=== PATIENT | female | born 1940 | race Caucasian/White ===

== ENCOUNTER → 2019-09-22 09:09 | Outpatient (BNVA) | payer MEDICARE, OTHER, SELFPAY | PROVIDERS: Family Provider Internal Medicine; PCP Internal Medicine; Visit Provider Nurse Practitioner | DX: I10 Essential (primary) hypertension (principal); E04.9 Nontoxic goiter, unspecified; M51.36 Other intervertebral disc degeneration, lumbar region | CPT/HCPCS: 80053; 80061; 81000; 84439; 84443; 84481; 85025 ==

== ENCOUNTER 2019-10-10 13:39 | Outpatient (CLI) | payer MEDICARE, OTHER, SELFPAY ==
--- NOTE | 2019-10-10 13:46 | US_ITS ---
WS: [id number] ULTRASOUND THYROID TECHNIQUE: Ultrasound of the thyroid. CLINICAL INFORMATION: enlarged thyroid COMPARISON: None. FINDINGS: Thyroid: Normal thyroid echotexture bilaterally. 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 No dominant nodules to target for biopsy. Right thyroid lobe: 3.8 cm x 1.3 cm x 1.4 cm Left thyroid lobe: 4.5 cm x 1.2 cm x 1.0 cm. Isthmus: 0.3 mm. Cervical lymphadenopathy: None. US/US thyroid [id number] IMPRESSION: Tiny bilateral hypoechoic nodules most of which appear to represent colloid cys ts. No dominant nodules to target for biopsy.
--- NOTE | 2019-10-10 15:15 | MR_ITS ---
WS: [id number] MRI LUMBAR SPINE NONCONTRAST TECHNIQUE: Sagittal T1, T2 and STIR imaging. Axial T1 and T2 imaging. CLINICAL INFORMATION: M51.36 Other intervertebral disc degeneration, lumbar region COMPARISON: None. FINDINGS: Mild lumbar curve. No acute compression. No high-grade central canal stenosis. L1-L2: Normal. L2-L3: Mild disc bulging in combination with moderate facet arthropathy results in moderate central c anal stenosis. Narrowing of the subarticular recess bilaterally. Small right foraminal protrusion wit h mild right foraminal narrowing. L3-L4: Mild disc bulging in combination with facet arthropathy and ligamentum flavum hypertrophy resu lts in moderate central canal stenosis. Impingement subarticular recess bilaterally. Mild right felicity inal narrowing. L4-L5: Mild disc bulging with slight effacement of the ventral thecal sac. Mild right and no signific ant left foraminal narrowing. Moderate facet arthropathy. Evidence of prior right hemilaminectomy. L5-S1: No significant disc bulging. Mild to moderate facet arthropathy. Spinal canal and foramen are patent. Visualized pelvic bony structures: Normal. Paravertebral soft tissues: Normal. MR/MR lumbar spine wo con* [id number] IMPRESSION: 1. Mild lumbar curve. No acute compression. No high-grade central canal stenos is. 2. Moderate central canal stenosis L2-L3 and L3-L4 due to disc bulging in comb ination with facet arthropathy and ligament flavum hypertrophy. Impingement sub articular recess bilaterally. 3. Prior right hemilaminectomy L4-5. Mild right L4-5 foraminal narrowing. 4. Moderate facet arthropathy throughout the lumbar spine.
== END 2019-10-10 13:40 | disposition home or self-care (01) ==
LOC: RADSHAW 13:42
PROVIDERS: PCP Nurse Practitioner; Visit Provider Nurse Practitioner
DX: M51.36 Other intervertebral disc degeneration, lumbar region (principal); E04.9 Nontoxic goiter, unspecified; M48.061 Spinal stenosis, lumbar region without neurogenic claudication; M47.816 Spondylosis without myelopathy or radiculopathy, lumbar region; E04.1 Nontoxic single thyroid nodule
CPT/HCPCS: 72148; 76536

== ENCOUNTER 2019-11-08 09:40 | Outpatient (RCR) | payer MEDICARE, OTHER, SELFPAY | END 2019-11-30 11:49 | disposition home or self-care (01) | LOC: SPT 09:40 | PROVIDERS: PCP Nurse Practitioner | DX: Z47.89 Encounter for other orthopedic aftercare (principal); M25.551 Pain in right hip; M54.5 Low back pain | CPT/HCPCS: 97110; 97162 ==

== ENCOUNTER 2019-11-15 13:39 | Outpatient (CLI) | payer MEDICARE, OTHER, SELFPAY ==
--- NOTE | 2019-11-15 14:02 | XR_ITS ---
WS: [id number] CERVICAL SPINE TECHNIQUE: 3 views of the cervical spine CLINICAL INFORMATION: burning pain anterior and posterior neck COMPARISON: None. FINDINGS: Straightening of the normal cervical lordosis. Normal prevertebral soft tissues. Normal C1-articulati on. Mild disc space narrowing C5-6. Moderate facet arthropathy mid cervical spine XR/XR cervical spine 3V* [id number] IMPRESSION: Mild spondylitic changes cervical spine.
== END 2019-11-15 13:40 | disposition home or self-care (01) ==
LOC: RADWPI 13:54
PROVIDERS: PCP Nurse Practitioner; Visit Provider Nurse Practitioner
DX: M54.2 Cervicalgia (principal); M47.812 Spondylosis without myelopathy or radiculopathy, cervical region
CPT/HCPCS: 72040

== ENCOUNTER → 2019-12-19 12:12 | Outpatient (BNVA) | payer MEDICARE, OTHER, SELFPAY | PROVIDERS: PCP Nurse Practitioner; Visit Provider Nurse Practitioner | DX: E04.9 Nontoxic goiter, unspecified (principal) | CPT/HCPCS: 84443 ==

== ENCOUNTER 2020-01-14 08:17 | Emergency (ER) | payer MEDICARE, OTHER, SELFPAY ==
[2020-01-14 08:26] VITALS: BP 190/110; PULSE 83; RESP 18; TEMP 36.7; O2SAT 94; BMI 28.1
--- NOTE | 2020-01-14 08:33 | ECG_ITS ---
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 Measurements Intervals [place] Rate: 78 P: 54 MT: 173 QRS: -9 QRSD: 105 T: 36 QT: 373 QTc: 426 Interpretive Statements SINUS RHYTHM WITH SINUS ARRHYTHMIA LOW QRS VOLTAGE IN PRECORDIAL LEADS [QRS DEFLECTION < 1.0 mV IN CHEST LEADS] INCOMPLETE RIGHT BUNDLE BRANCH BLOCK [90+ ms QRS DURATION, TERMINAL R IN V1/V2, 40+ ms S IN I/aVL/V4/V5/V6] POSSIBLE ANTERIOR MYOCARDIAL INFARCTION , PROBABLY OLD [30 ms Q WAVE IN V3/V4, OR R < 0.2 mV IN V4] No previous ECG available for comparison Electronically Signed On 01-14-2020 18:57:01 COMMERCIAL STRIPPER by Didi Peterson M.D. [id number]
[2020-01-14 08:38] VITALS: BP 190/110
[2020-01-14] MEDS: cloNIDine 0.1 mg Tablet PO (08:38)
[2020-01-14 09:09] VITALS: BP 146/83; PULSE 74; RESP 18; O2SAT 91
--- NOTE | 2020-01-14 09:27 | ED_ITS ---
HPI - General Adult General: Chief complaint: General Medical Stated complaint: N/V, HIGH BP Time Seen by Provider: 01/14/20 08:19 Source: patient Mode of arrival: ambulatory Limitations: no limitations History of Present Illness: HPI narrative: Very pleasant 79 yo female patient presents to the ER concerned that her blood pessure was elevated this am. Pt states she takes her blood pressure medication in am and seems like in the evening lately her blood perssure has been high. pt denies headache, visual disturbances, denies chest pain or SOB. Associated symptoms: Deny chest pain, confusion, diaphoresis, dyspnea, headache(s), malaise, nausea, rash, palpitations, syncope or vomiting Review of Systems Const: Denies: fever(s), chills, body aches, change in appetite, change in weight, fatigue, malaise or diaphoresis Eyes: Denies: change in vision, blurry vision, blind spots, photophobia, eye discomfort, eye discharge, eye redness, floaters or seeing flashes ENMT: Denies: throat pain, uvular edema, enlarged tonsils, odynophagia, hoarseness, mouth pain, swelling of lips/tongue, oral sores, bleeding gums, dental pain, dry mouth, ear or mastoid pain, ear discharge, change in hearing, tinnitus, disequilibrium, nasal discharge, nasal congestion, post nasal drip or sinus pain Card: Denies: chest pain, palpitations, irregular heart rhythm, edema, swelling of feet/ankles, lightheadedness, syncope, pre-syncope, dyspnea on exertion, orthopnea, leg pain with exertion or acrocyanosis Resp: Denies: dyspnea, productive cough, non-productive cough, wheezing, stridor, pain on inspiration, change in phlegm color, hemoptysis or chest congestion GI: Denies: abdominal pain, nausea, vomiting, hematemesis, dysphagia, diarrhea, constipation, GI cramping, change in bowel habits or rectal pain : Denies: flank pain, difficulty voiding, dysuria, urinary frequency, urinary urgency, urinary hesitancy or hematuria Musc: Denies: neck pain, back pain, extremity pain, extremity swelling, joint pain, joint swelling, joint redness, joint warmth or deformity Skin/Breast: Denies: rash, pruritus, erythema, sores, new lesions, changes in skin color or dry skin Neuro: Denies: headache(s), numbness in extremities, weakness in extremities, sensory changes, lack of coordination, difficulty walking, frequent falls, dizziness, vertigo, confusion, behavioral changes, Slurred speech present, difficulty communicating thoughts or seizure-like activity Psych: Denies: anxiety, depression, suicidal ideation or homicidal ideation Endo: Denies: polyuria, polydipsia, tired all the time, cold intolerance, excessive sweating, flushing, hot flashes or heat intolerance Angel/Lymph: Denies: easy bruising, easy bleeding, petechiae, purpura, enlarged lymph nodes or tender lymph nodes All/Imm: Denies: urticaria, throat swelling, tongue swelling, facial swelling, acute wheezing or itchy eyes PFSH ED PFSH: Medical History Anxiety DDD (degenerative disc disease), lumbar Essential (primary) hypertension Surgical History History of back surgery 1988 lumbar History of hernia repair History of hysterectomy Family History Other Cancer Diabetes Hypertension Denies family history of Dementia Stroke Social History Smoking and tobacco status: former smoker Second hand smoke exposure: No Smoking risk assessment/counseling performed?: No Alcohol intake: never Desire information about alcohol rehabilitation?: No Counseling given: No Desire information about substance/drug rehabilitation?: No Counseling given: No Adopted: No Caregiver/support person: No Lives independently: Yes Household members: spouse Housing: House Marital status: Number of children: 1 service: No Current occupational status: retired History of recent travel: No Current gender identity: Female Physical Exam Const: COMMON NORMALS: no acute distress, patient oriented x3 and no li mitations HENMT: COMMON NORMALS: normocephalic, atraumatic and hearing grossly normal bilaterally HEAD & SCALP: normocephalic and atraumatic FACE & SINUS: normal facial exam THROAT: no uvular edema Eye: COMMON NORMALS: Equal, round and reactive pupils present, EOMs intact bilaterally and conjunctivae normal CONJUNCTIVA: Yes conjunctivae normal PUPIL: Yes Equal, round and reactive pupils present Neck/C-Spine: COMMON NORMALS: full ROM and no JVD Chest: COMMONS NORMALS: normal inspection of the chest and normal palpation of entire chest wall Resp: COMMON NORMALS: normal respiratory effort, No retractions, No use of accessory muscles and clear to auscultation bilaterally AUSCULTATION: clear to auscultation bilaterally Cardio: COMMON NORMALS: no JVD, regular rate and regular rhythm RATE: regular rate RHYTHM: regular rhythm Neuro: COMMON NORMALS: patient oriented x3, CN's II-XII intact bilaterally, moves all extremities, no focal motor deficits, no sensory deficits noted and gait normal Psych: COMMON NORMALS: mental status grossly normal, Normal thought process present, cooperative, normal affect, speech normal, activity/motor behavior normal, denies homicidal ideation and denies suicidal ideation SPEECH: Yes normal speech THOUGHT PROCESS: Normal thought process present Skin: COMMON NORMALS: no rashes or lesions noted, no wounds and turgor normal GENERAL SKIN EXAM: no rashes or lesions noted and turgor normal Course Vital Signs: Vital signs: Vital Signs Temperature 98.0 F 01/14/20 08:26 Pulse Rate 74 01/14/20 09:09 Respiratory Rate 18 01/14/20 09:09 Blood Pressure 146/83 01/14/20 09:09 Pulse Oximetry 91 01/14/20 09:09 MDM - General Adult MDM Narrative: Medical decision making narrative: Very pleasant 79 yo female patient presents to the ER concerned that her blood pessure was elevated this am. Pt states she takes her blood pressure medication in am and seems like in the evening lately her blood perssure has been high. pt denies headache, visual disturbances, denies chest pain or SOB. Pt is well appearing non toxic and in a cute distress. pt states she had clonidine at home but thought it was an anxiety med and was afraid to take. I did get EKG which shows no st levation or depression nothing acute noted. pt is asymptomatic and was given clonidine and had clinical improvement of blood pressure. I do not feel any further work up is necessary. I advised patient to keep bp log and report to PCP in 1 week as a medication adjustment might be needed. Discharge Plan Discharge Patient Disposition: Home Clinical Impression: Essential (primary) hypertension Condition: Stable Prescriptions: No Action alprazolam [Xanax] 0.25 mg tablet 0.25 mg PO TID PRNRF: 0 magnesium citrate Solution 150 ml PO DAILY Qty: 296 RF: 0 Xlear 2 spray intranasal TID Qty: 45 RF: 0 lisinopril 20 mg tablet 20 mg PO DAILY Qty: 90 RF: 0 tizanidine [Zanaflex] 4 mg tablet 4 mg PO .at bedtime Qty: 90 RF: 0 thyroid (pork) [Porter Thyroid] 15 mg tablet 15 mg PO DAILY Qty: 30 RF: 2 celecoxib [Celebrex] 100 mg capsule 100 mg PO DAILY Qty: 30 RF: 2 clonidine HCl 0.1 mg tablet 0.1 mg PO BID Qty: 60 RF: 0 citalopram [Celexa] 10 mg tablet 10 mg PO DAILY Qty: 30 RF: 0 Discharge Orders: Discharge Order (Routine); Ordered 01/14/20 Ordered By: Cony Luna Referrals: Ruiz Tesfaye, EDUCATIONAL PROGRAM DIRECTOR-C [Primary Care Provider] - Discharge Diet: Advance as tolerated Discharge Activity: Resume usual activity Activity Restrictions/Additional Instructions: Please return to ER with elevated blood pressure that does not normalize after taking your meds as prescribed Return with chest pain or shortness of breath of any other concerning symptoms Please log your blood pressures for the next week and report to your PCP as medication adjustment might be needed Coding Level of Care Code ED Chief Drafter for Juan Carlos Mckeon
[2020-01-14 09:34] VITALS: BP 135/83; PULSE 73; RESP 18; O2SAT 90
== END 2020-01-14 09:36 | disposition home or self-care (01) ==
PROVIDERS: Emergency Provider Registered Nurse; PCP Nurse Practitioner
DX: I10 Essential (primary) hypertension (principal); Z87.891 Personal history of nicotine dependence
CPT/HCPCS: 12345; 93005; 99281; 99283

== ENCOUNTER → 2020-02-29 12:12 | Outpatient (BNVA) | payer MEDICARE, OTHER, SELFPAY | PROVIDERS: PCP Nurse Practitioner; Visit Provider Nurse Practitioner Family | DX: J06.9 Acute upper respiratory infection, unspecified (principal); Z20.828 Contact with and (suspected) exposure to other viral communicable diseases | CPT/HCPCS: 87635 ==

== ENCOUNTER 2020-03-06 09:33 | Outpatient (CLI) | payer MEDICARE, OTHER, SELFPAY ==
[2020-03-06 09:49] VITALS: BP 142/75; PULSE 69; RESP 15; TEMP 36.4; O2SAT 97; BMI 28.8
--- NOTE | 2020-03-06 10:03 | A.OFFVIS_ITS ---
Patient Information Referred by: Reza Symptom onset date: 02/28/20 COVID 19 common symptoms: positive fatigue, body aches, headache(s) and diarrhea COVID 19 other sytmptoms: negative chest pressure, chest pain, pleuritic pain, requiring oxygen, requiring more oxygen, respiratory distress, cyanosis, lethargy, confusion, new neurological complaints or other concerning symptoms Severity: moderate Treatment prior to arrival: none [facility] COVID test results: Nasal/Oral Coronavirus 2019 PCR Detected H 02/29/20 12:12 02/29/20 Criteria/Plan Inclusion/Exclusion Criteria weight >/= 40kg, + direct test </= 10 days ago and symptom onset </= 10 days ago age >/= 65 not requiring hospitalization, not requiring oxygen (if not chronically on oxygen) and no increase oxygen requirement (if chronically on oxygen) Patient education patient/caregiver received/reviewed fact sheet, Emergency Use Authorization/unapproved drug status discussed with patient/caregiver, alternatives to this treatment discussed with patient/caregiver, risks and bene fits of medication reviewed with patient/caregiver, patient/caregiver given opportunity for questions, which were answered and patient/caregiver consents to receiving Monoclonal Antibody Treatment Plan for treatment Meets criteria for Monoclonal Antibody infusion Ordering Monoclonal Antibody infusion for today
[2020-03-06 10:05] VITALS: BMI 28.8
[2020-03-06 10:49] VITALS: BP 131/72; PULSE 68; RESP 16; TEMP 36.3; O2SAT 94
[2020-03-06 11:07] VITALS: BP 101/72; PULSE 67; RESP 16; TEMP 36.4; O2SAT 97
[2020-03-06 11:34] VITALS: BP 133/67; PULSE 63; O2SAT 95
[2020-03-06 12:27] VITALS: BP 138/79; PULSE 62; O2SAT 97
== END 2020-03-06 12:29 | disposition home or self-care (01) ==
PROVIDERS: PCP Nurse Practitioner; Visit Provider Nurse Practitioner Family
DX: U07.1 COVID-19 (principal)
CPT/HCPCS: 96365; J7050

== ENCOUNTER 2020-03-07 19:15 | Emergency (ER) | payer MEDICARE, OTHER, SELFPAY ==
[2020-03-07 20:04] VITALS: BP 152/76; PULSE 76; RESP 18; TEMP 36.6; O2SAT 98; BMI 28.8
--- NOTE | 2020-03-07 20:14 | ED_ITS ---
HPI - Nausea/Vomiting/Diarrhea General: Chief complaint: Nausea/Vomiting/Diarrhea Stated complaint: covid symptoms/covid positive, had BAM yesterday Time Seen by Provider: 03/07/20 20:03 History of Present Illness: HPI Narrative: Patient says she been nauseated for 3 to 4 hours requesting medication for that otherwise she says she feels fine not any respiratory distress or other problems did receive antibody infusion yesterday MD elicited complaint: nausea Onset (ago): hour(s) Associated nausea: Yes Associated abdominal pain: No Associated symtoms: Reports no associated symptoms and nausea; Denies anxiety, change in vision, chest pain or headache(s) Review of Systems Const: Denies: fever(s), chills or body aches Eyes: Denies: change in vision or blurry vision ENMT: Denies: throat pain or nasal congestion Card: Denies: chest pain or dyspnea on exertion Resp: Denies: dyspnea, productive cough or non-productive cough GI: Reports: nausea Musc: Denies: extremity pain Skin/Breast: Denies: rash Neuro: Denies: headache(s) Psych: Denies: anxiety or depression Angel/Lymph: Denies: easy bruising PFSH ED PFSH: Medical History Anxiety DDD (degenerative disc disease), lumbar Essential (primary) hypertension Surgical History History of back surgery 1988 lumbar History of hernia repair History of hysterectomy Family History Other Cancer Diabetes Hypertension Denies family history of Dementia Stroke Social History Smoking and tobacco status: former smoker Second hand smoke exposure: No Smoking risk assessment/counseling performed?: No Alcohol intake: never Desire information about alcohol rehabilitation?: No Counseling given: No Desire information about substance/drug rehabilitation?: No Counseling given: No Adopted: No Caregiver/support person: No Lives independently: Yes Household members: spouse Housing: House Marital status: Number of children: 1 service: No Current occupational status: retired History of recent travel: No Current gender identity: Female Physical Exam Const: COMMON NORMALS: no acute distress, average body habitus and patient oriented x3 HENMT: COMMON NORMALS: normocephalic HEAD & SCALP: normal to inspection and normocephalic FACE & SINUS: normal facial exam Eye: COMMON NORMALS: conjunctivae normal GENERAL EYE: appearance normal, both eyes and all related structures CONJUNCTIVA: Yes conjunctivae normal Neck/C-Spine: COMMON NORMALS: no JVD Chest: COMMONS NORMALS: normal inspection of the chest Resp: COMMON NORMALS: normal respiratory effort and clear to auscultation bilaterally AUSCULTATION: clear to auscultation bilaterally Cardio: COMMON NORMALS: no JVD, regular rate and regular rhythm RATE: regular rate RHYTHM: regular rhythm GI: COMMON NORMALS: Normal to inspection, nondistended, normoactive bowel sounds present Extremity: COMMON NORMALS: normal to inspection and full ROM Neuro: COMMON NORMALS: patient oriented x3 Course Vital Signs: Vital signs: Vital Signs Temperature 97.8 F 03/07/20 20:04 Pulse Rate 76 03/07/20 20:04 Respiratory Rate 18 03/07/20 20:04 Blood Pressure 152/76 03/07/20 20:04 Pulse Oximetry 98 03/07/20 20:04 Discharge Plan Discharge Patient Disposition: Home Clinical Impression: Nausea Condition: Stable Prescriptions: New Zofran 4 mg tablet 4 mg PO Q8H 4 Days Qty: 12 RF: 0 No Action alprazolam [Xanax] 0.25 mg tablet 0.25 mg PO TID PRNRF: 0 magnesium citrate Solution 150 ml PO DAILY Qty: 296 RF: 0 Xlear 2 spray intranasal TID Qty: 45 RF: 0 tizanidine [Zanaflex] 4 mg tablet 4 mg PO .at bedtime Qty: 90 RF: 0 levothyroxine 50 mcg tablet 50 mcg PO DAILY Qty: 90 RF: 0 meloxicam [Mobic] 7.5 mg tablet 7.5 mg PO DAILY Qty: 90 RF: 1 valsartan [Diovan] 160 mg tablet 160 mg PO DAILY Qty: 90 RF: 0 clonidine HCl 0.1 mg tablet 0.1 mg PO BID PRN (Reason: hypertensive emergency) Qty: 60 RF: 1 fluoxetine [Prozac] 20 mg capsule 20 mg PO DAILY Qty: 30 RF: 2 Discharge Orders: Discharge ED (Routine); Ordered 03/07/20 Ordered By: Fortino Funk Referrals: Ruiz Tesfaye, BOOK RETAILER-C [Primary Care Provider] - Discharge Diet: Advance as tolerated Discharge Activity: Resume usual activity Activity Restrictions/Additional Instructions: Follow-up your primary care provider as necessary. If nausea worsens or pain develops or any other symptoms that seem out of the ordinary please come back here or see your family medical provider Coding Level of Care Code ED Steam And Power Superintendent for Juan Carlos Mckeon
[2020-03-07] MEDS: ondansetron 4 MG Tablet PO (20:25)
[2020-03-07] MEDS: ondansetron 2 mg/ML SDV 2 mL 4 MG IM (20:33)
--- NOTE | 2020-03-07 21:17 | PC.NURSE ---
Oral challenge complete. Pt able to keep down sprite. Pt reports continued nausea. Provider notified and aware. Pt to be discharged.
[2020-03-07 21:18] VITALS: BP 154/78; PULSE 84; RESP 18; O2SAT 99
== END 2020-03-07 21:19 | disposition home or self-care (01) ==
PROVIDERS: Emergency Provider Nurse Practitioner Family; PCP Nurse Practitioner
DX: R11.0 Nausea (principal); I10 Essential (primary) hypertension; Z87.891 Personal history of nicotine dependence
CPT/HCPCS: 12345; 96372; 99281; 99283; J2405; Q0162

== ENCOUNTER → 2020-08-08 15:20 | Outpatient (BNVA) | payer MEDICARE, OTHER, SELFPAY | PROVIDERS: PCP Nurse Practitioner; Visit Provider Nurse Practitioner | DX: F41.9 Anxiety disorder, unspecified (principal); M51.36 Other intervertebral disc degeneration, lumbar region; I10 Essential (primary) hypertension | CPT/HCPCS: 80053; 80061; 84443; 85025 ==

== ENCOUNTER 2020-08-14 13:56 | Inpatient (IN) | payer MEDICARE, OTHER, SELFPAY ==
[2020-08-14] VITALS (10 sets, daily range): BP systolic 123–164; BP diastolic 71–99; PULSE 75–97; RESP 16–22; TEMP 36.4–36.9; O2SAT 90–94; BMI 30.4
--- NOTE | 2020-08-14 14:03 | XR_ITS ---
WS: [id number] Exam: XR hip LT 2-3V wo/w pel* [id number] Date/Time of Exam: 08/14/2020 2:17 PM Reason For Exam: fall. left hip pain There is a mid cervical fracture of the left femoral neck. There is some impaction. No dislocation. M oderate osteoarthritis of the joint compartment. Subcortical cyst formation in the femoral head. XR/XR hip LT 2-3V wo/w pel* [id number] IMPRESSION: 1. Impacted femoral neck fracture as noted above. 2. Moderate DJD.
--- NOTE | 2020-08-14 14:03 | XR_ITS ---
WS: [id number] Exam: XR chest 1V portable [id number] Date/Time of Exam: 08/14/2020 2:17 PM Reason For Exam: ground level fall Comparison 04/14/2010. The lungs are clear and fully inflated. Normal cardiomediastinal structures and bony elements. Hiatal hernia noted. XR/XR chest 1V portable [id number] IMPRESSION: 1. No acute cardiopulmonary finding. 2. Hiatal hernia.
--- NOTE | 2020-08-14 14:04 | ECG_ITS ---
[facility] Test Date: 2020-08-14 Pat Name: Kanika Lane Department: Room: Gender: Female Mail Processing Machine Operator: : 1940 Requested By: Carlos A Cowan Order Number: [id number] Najma MD: David Johnson M.D. Measurements Intervals [place] Rate: 68 P: 75 IA: 200 QRS: 16 QRSD: 92 T: 42 QT: 414 QTc: 440 Interpretive Statements SINUS RHYTHM Compared to ECG 01/14/2020 08:42:53 Sinus arrhythmia no longer present Incomplete right bundle-branch block no longer present Myocardial infarct finding no longer present Electronically Signed On 08-14-2020 17:30:31 CDT by David Johnson M.D. [id number]
--- NOTE | 2020-08-14 14:05 | ED_ITS ---
HPI - Extremity Problem General: Chief complaint: Extremity Injury, Lower Stated complaint: GROUND LEVEL FALL Time Seen by Provider: 08/14/20 13:57 History of Present Illness: HPI Narrative: The patient is a 79-year-old female who comes to the ER after a, fall. She says she slipped on a toy and her legs split. She complains of left hip pain worse with movement. She arrived to ER via ambulance. She offers no other complaints at this time. She says she has past medical history of hypertension but no other medical problems. MD Complaint: joint pain Pain Consistency: constant Location: left Quality: sharp Relieving factors: rest Exacerbating factors: range of motion and other (movement) Associated symptoms: Reports no associated symptoms; Deny chest pain or rash Review of Systems General: Reports: 10 or more systems reviewed and unremarkable except in HPI and below Const: Denies: fatigue Eyes: Denies: change in vision, blurry vision or eye redness ENMT: Denies: throat pain, swelling of lips/tongue, ear or mastoid pain or nasal congestion Card: Denies: chest pain, palpitations, irregular heart rhythm, edema, dyspnea on exertion or orthopnea Resp: Denies: dyspnea, productive cough or non-productive cough GI: Denies: abdominal pain, diarrhea or GI cramping : Denies: flank pain, difficulty voiding, urinary frequency or urinary urgency Musc: Reports: joint pain and other; Denies: neck pain, back pain, extremity pain, joint redness, limited range of motion or muscle weakness Skin/Breast: Denies: rash, pruritus, erythema, skin pain or skin tenderness Neuro: Denies: headache(s), numbness in extremities, weakness in extremities, sensory changes, difficulty walking, dizziness, confusion or Slurred speech present Psych: Denies: anxiety or depression Endo: Denies: polyuria All/Imm: Denies: urticaria, throat swelling or tongue swelling PFSH ED PFSH: Medical History Anxiety DDD (degenerative disc disease), lumbar Essential (primary) hypertension Surgical History History of back surgery 1988 lumbar History of hernia repair History of hysterectomy Family History Other Cancer Diabetes Hypertension Denies family history of Dementia Stroke Social History Smoking and tobacco status: former smoker Second hand smoke exposure: No Smoking risk assessment/counseling performed?: No Alcohol intake: never Desire information about alcohol rehabilitation?: No Counseling given: No Desire information about substance/drug rehabilitation?: No Counseling given: No Adopted: No Caregiver/support person: No Lives independently: Yes Household members: spouse Housing: House Marital status: Number of children: 1 service: No Current occupational status: retired History of recent travel: No Current gender identity: Female Physical Exam Const: COMMON NORMALS: no acute distress, average body habitus, patient oriented x3, no limitations, healthy appearing, alert and well nourished GENERAL APPEARANCE: cooperative, comfortable, well kempt and well developed ORIENTATION/CONSCIOUSNESS: Yes awake, Yes oriented to person, Yes oriented to place and Yes oriented to time HENMT: COMMON NORMALS: normocephalic, external ears normal and Normal external nose present HEAD & SCALP: normal to inspection and normocephalic NOSE: Normal external nose present EXTERNAL EAR: Yes external ears normal MOUTH: Normal oral and palatal mucosa present THROAT: posterior oropharynx normal Eye: COMMON NORMALS: Equal, round and reactive pupils present and EOMs intact bilaterally GENERAL EYE: appearance normal, both eyes and all related structures PUPIL: Yes Equal, round and reactive pupils present Neck/C-Spine: COMMON NORMALS: full ROM, no lymphadenopathy, no meningeal signs and no JVD GENERAL: Yes normal visual inspection Lymph: LYMPHATIC: no lymphadenopathy noted Chest: COMMONS NORMALS: normal inspection of the chest and normal palpation of entire chest wall Resp: COMMON NORMALS: normal respiratory effort, No retractions, No use of accessory muscles, clear to auscultation bilaterally and percussion normal EFFORT & INSPECTION: Yes able to speak in complete sentences AUSCULTATION: clear to auscultation bilaterally PERCUSSION: percussion normal Cardio: COMMON NORMALS: no JVD, regular rate, regular rhythm, S1 normal heart sound present, S2 normal heart sound present and Peripheral pulses 2+ throughout RATE: regular rate RHYTHM: regular rhythm HEART SOUNDS: S1 normal heart sound present and S2 normal heart sound present PERIPHERAL PULSES: Peripheral pulses 2+ throughout GI: COMMON NORMALS: Normal to inspection, nondistended, normoactive bowel sounds present, Soft to palpation, non-tender and no masses INSPECTION: Yes normal to inspection PALPATION: Yes Soft to palpation : COMMON NORMALS: Yes no CVA tenderness BLADDER/KIDNEY EXAM: Yes no CVA tenderness Back/Pelvis: COMMON NORMALS: no CVA tenderness, thoracic and lumbar spine normal to inspection, no thoracic nor lumbar tenderness and thoraco-lumbar ROM normal Extremity: COMMON NORMALS: normal to inspection, full ROM, capillary refill normal, no joint enlargement and no pedal edema NARRATIVE EXTREMITY EXAM: left hip tenderness worse with movement. Pain limits exam significantly. will wait for images. GENERAL: Yes normal exam except as noted Neuro: COMMON NORMALS: patient oriented x3, CN's II-XII intact bilaterally, moves all extremities, no focal motor deficits, no sensory deficits noted and gait normal SENSORIUM/ORIENTATION: Yes alert, Yes oriented to person, Yes oriented to place and Yes oriented to time MENINGEAL SIGNS: Yes no meningeal signs Psych: COMMON NORMALS: mental status grossly normal, Normal thought process present, cooperative, normal affect and speech normal APPEARANCE: Yes well kempt ATTITUDE: Yes calm SPEECH: Yes normal speech THOUGHT PROCESS: Normal thought process present Skin: COMMON NORMALS: no rashes or lesions noted GENERAL SKIN EXAM: no rashes or lesions noted Course Vital Signs: Vital signs: Vital Signs Temperature 98.4 F 08/14/20 13:58 Pulse Rate 80 08/14/20 15:28 Respiratory Rate 18 08/14/20 15:37 Blood Pressure 144/81 08/14/20 15:28 Pulse Oximetry 94 08/14/20 15:28 MDM - Extremity (Nontraumatic) MDM Narrative: Medical decision making narrative: The patient fell at home. She has a impacted left hip fracture at the femoral neck. Discussed with Dr. Mike who will likely pin her tomorrow. Discussed with Dr. Baum who ac cepts for inpatient admission. Lab Data: Labs: Lab Results 08/14/20 08/14/20 Range/Units 14:35 14:35 WBC 15.1 H (4.0-10.0) 10^3/ uL RBC 4.34 (4.1-5.3) 10^6/u L Hgb 12.8 (11.5-15.3) g/dL Hct 39.1 (37.0-47.0) % MCV 90.1 (81-99) fL MCH 29.5 (28.0-34.0) pg MCHC 32.7 (30.0-36.0) g/dL RDW 12.8 (12.1-15.1) % Plt Count 375 (130-400) 10^3/c mm MPV 10.9 H (7.4-10.4) fL Neut % (Auto) 82.5 % Lymph % (Auto) 8.7 % [place] % (Auto) 6.9 % Eos % (Auto) 0.7 % Baso % (Auto) 0.7 % Neut # (Auto) 12.43 H (1.8-7.7) 10^3/u L Lymph # (Auto) 1.3 (0.8-4.8) 10^3/u L Ed[place] # (Auto) 1.0 H (0.2-0.9) 10^3/u L Eos # (Auto) 0.1 (0.0-0.8) 10^3/u L Baso # (Auto) 0.1 (0.0-0.1) 10^3/u L Nucleated RBC % (a uto) 0 % Nucleated RBCs # 0.0 /100WBC Sodium 138 (136-145) mmol/L Potassium 4.0 (3.5-5.1) mmol/L Chloride 101 (98-107) mmol/L Carbon Dioxide 28 (22-29) mmol/L Anion Gap 13.0 (5-19) BUN 26 H (8-23) mg/dL Creatinine 1.1 H (0.5-0.9) mg/dL GFR Calculation Not Reportable Glucose 120 H (65-115) mg/dL Calculated Osmolal ity 292 (285-295) mOsm/k g Calcium 8.3 L (8.5-10.5) mg/dL Total Bilirubin 0.3 (0.15-1.2) mg/dL AST 20 (0-32) U/L ALT 15 (0-33) U/L Alkaline Phosphata se 95 (35-105) IU/L Total Protein 6.3 L (6.6-8.7) g/dL Albumin 3.9 (3.5-5.2) g/dL Globulin 2.4 (1.3-4.6) g/dL Discharge Plan Discharge Patient Disposition: Admitted As Inpatient Clinical Impression: Fracture of hip Condition: Stable Coding Level of Care Code ED Porcelain Enamel Sprayer for [facility] Fwd Exam Comprehensive
[2020-08-14 14:44] LABS: Basophils # 0.1 10^3/uL (0.0-0.1); Basophils % 0.7 %; Eosinophils # 0.1 10^3/uL (0.0-0.8); Eosinophils % 0.7 %; Hematocrit 39.1 % (37.0-47.0); Hemoglobin 12.8 g/dL (11.5-15.3); Lymphocytes # 1.3 10^3/uL (0.8-4.8); Lymphocytes % 8.7 %; Mean Corpuscular HGB Conc 32.7 g/dL (30.0-36.0); Mean Corpuscular Hemoglobin 29.5 pg (28.0-34.0); Mean Corpuscular Volume 90.1 fL (81-99); Mean Platelet Volume 10.9 fL (7.4-10.4); Monocytes % 6.9 %; Neutrophils # 12.43 10^3/uL (1.8-7.7); Neutrophils % 82.5 %; Nucleated Red Blood Cells % 0 %; Platelet Count 375 10^3/cmm (130-400); Red Blood Count 4.34 10^6/uL (4.1-5.3); Red Cell Distribution Width 12.8 % (12.1-15.1); White Blood Count 15.1 10^3/uL (4.0-10.0)
[2020-08-14 15:09] LABS: Alanine Aminotransferase 15 U/L (0-33); Albumin Level 3.9 g/dL (3.5-5.2); Alkaline Phosphatase 95 IU/L (35-105); Aspartate Amino Transferase 20 U/L (0-32); Blood Urea Nitrogen 26 mg/dL (8-23); Calcium 8.3 mg/dL (8.5-10.5); Carbon Dioxide 28 mmol/L (22-29); Chloride 101 mmol/L (98-107); Globulin 2.4 g/dL (1.3-4.6); Glucose 120 mg/dL (65-115); Osmolality Calculated 292 mOsm/kg (285-295); Sodium 138 mmol/L (136-145); Total Bilirubin 0.3 mg/dL (0.15-1.2); Total Protein 6.3 g/dL (6.6-8.7)
[2020-08-14] MEDS: morphine 4 mg/mL SDV 1 mL IVP (15:37)
[2020-08-14] MEDS: ondansetron 2 mg/ML SDV 2 mL 4 MG IVP (15:37)
[2020-08-14] MEDS: HYDROmorphone 1 mg/mL INJ 1 mL 0.5 MG IVP ×2 (16:49→19:33)
[2020-08-14 17:00] LABS: Add Urine Microscopic? NO; Charge for UA Resulting for Rev
[2020-08-14 17:11] LABS: Bilirubin Urine Neg (Negative); Blood Urine Neg (Negative); Glucose Urine UA Norm (Normal); Ketones Urine Negative (Negative); Leukocyte Esterase Urine Negative (Negative); Nitrate Urine Negative (Negative); Protein Urine Neg (Negative); Specific Gravity, Urine 1.005 (1.005-1.030); Urine Appearance Clear (CLEAR); Urine Color Yellow (Yellow); Urobilinogen Urine Norm (Negative); pH Urine 7 (5-7)
--- NOTE | 2020-08-14 18:41 | PC.NURSE ---
PT GOT TO FLOOR AND PAIN WAS ASSESSED AT THIS TIME
--- NOTE | 2020-08-14 19:29 | PM.HP ---
Providers/Chief Complaint Admitting Physician: Matt Baum DO Primary Care Provider: HASMUKH Hernandez Chief Complaint: GROUND LEVEL FALL History of Present Illness Kanika Lane is a 79 year old female presents after fall on a child's toy landing on her left hip. She was unable to walk and sought emergency care. She was found to have a left impacted hip fracture at the femoral neck. Patient was feeling well prior to this fall. She does note that she had Covid in March. She states that she has almost completely resolved symptoms except for a lingering fatigue. Review of Systems Const: Denies: fever(s) or chills Eyes: Denies: change in vision ENMT: Denies: throat pain or nasal congestion Card: Denies: chest pain or palpitations Resp: Denies: dyspnea or productive cough GI: Denies: abdominal pain, nausea, vomiting or change in stool character : Denies: dysuria Musc: Reports: joint pain and deformity Skin/Breast: Denies: rash or lesions Neuro: Denies: headache(s) or dizziness Psych: Denies: anxiety or depression Angel/Lymph: Denies: easy bruising or easy bleeding Medications/Allergies Home Medications Medication Instructions Recorded Confirmed Last Taken Type alprazolam 0.25 mg tablet 0.125 mg PO BEDTIME PRN 09/22/19 08/14/20 08/13/20 History Xlear 2 spray INTRANASAL TID #45 ml 12/19/19 08/14/20 Unknown Rx clonidine HCl 0.1 mg tablet 0.1 mg PO BID PRN #60 tab 02/06/20 08/14/20 Unknown Rx Diovan HCT 1 tab PO DAILY@1030 08/14/20 08/14/20 08/14/20 History Mobic 7.5 mg PO DAILY@1030 08/14/20 08/14/20 08/14/20 History Prozac 20 mg PO DAILY@1030 08/14/20 08/14/20 08/14/20 History levothyroxine 50 mcg PO DAILY@1030 08/14/20 08/14/20 08/14/20 History loratadine 10 mg PO DAILY PRN 08/14/20 08/14/20 08/14/20 History magnesium citrate 150 ml PO DAILY@1030 08/14/20 08/14/20 08/14/20 History Allergies Allergy/AdvReac Type Severity Reaction Status Date / Time codeine Allergy Unknown Unknown Verified 03/07/20 20:08 Penicillins Allergy Unknown Unknown Verified 03/07/20 20:08 PFSH Acute PFSH: Medical History Anxiety DDD (degenerative disc disease), lumbar Essential (primary) hypertension Surgical History History of back surgery 1988 lumbar History of hernia repair History of hysterectomy Family History Other Cancer Diabetes Hypertension Denies family history of Dementia Stroke Social History Smoking and tobacco status: former smoker Second hand smoke exposure: No Smoking risk assessment/counseling performed?: No Alcohol intake: never Desire information about alcohol rehabilitation?: No Counseling given: No Desire information about substance/drug rehabilitation?: No Counseling given: No Adopted: No Caregiver/support person: No Lives independently: Yes Household members: spouse Housing: House Marital status: Number of children: 1 service: No Current occupational status: retired History of recent travel: No Current gender identity: Female Vitals/I&O/Wt Last Vital Signs Temp 98.3 F 08/14/20 18:00 Pulse 85 08/14/20 18:13 Resp 18 08/14/20 18:13 BP 150/85 08/14/20 18:13 Pulse Ox 92 08/14/20 18:13 Weight last 48 hrs Weight 90.718 kg Physical Exam Narrative: EXAM NARRATIVE: General: Patient is in mild to moderate distress. She has shaking chill yet she is not cold. She appears to be very anxious. HEENT. Head is normocephalic atraumatic pupils are equal round reactive to light and accommodation extraocular muscles are intact there is no scleral icterus mucous membranes are moist and pink, dentition is intact Neck: Supple no JVD carotid bruits or lymphadenopathy no thyromegaly appreciated Lymphatic: No lymphadenopathy appreciated in the cervical axillary or supraclavicular areas chest: Chest:rises symmetrically inspection is normal Respiratory: no wheezes or rales or rhonchi anteriorly good aeration Heart: Normal S1-S2 without murmurs clicks gallops or rubs Abdomen: soft nontender nondistended positive bowel sounds no hepatosplenomegaly Extremities: No clubbing cyanosis or edema. I do note a left external rotation at the hip. Neuro: patient is alert and oriented to person place time and situation she is nonfocal except for mobility of the left leg. Psych, mood and affect are appropriate for condition Skin: No lesions or rashes noted. Urinary Catheter Management^: Ray: Cath Placed During This Visit: yes Reason for Continuing Indwelling Catheter: Required Immobilization for Trauma or Surgery or Anesthesia Urinary Catheter Date of Insertion: 08/14/20 Urinary Catheter Time of Insertion: 16:30 Data : 08/14/20 14:35 08/14/20 14:35 A&P Assessment and plan (1) Fracture of hip: Dr. Mike to place pin in left hip tomorrow in the OR. N.p.o. after midnight D5 half-normal saline with 20 of KCl. Dilaudid 0.5 mg IV push every 4 hours as needed Oxycodone 10mg p.o. every 6 hours as needed. I advised patient and nurse that she should take the 10 mg right at midnight after which she will be n.p.o. Valium as below. Status: Acute (2) Anxiety: Patient usually takes low-dose Xanax at night to help with sleep. I will prescribe Valium 10 mg p.o. to help with sleep pain and muscle spasm. Status: Chronic (3) Essential (primary) hypertension: Continue patient's home dose of Diovan HCT. Status: Chronic (4) Hypothyroid: Continue patient's home dose of levothyroxine Status: Acute Attestations Medical Necessity Statement*: HIp fx requiring surgery, therapy and then rehab. Anticipate 2 MN stay Coding Level of Care Code Acute Property Insurance Inspector for [facility] Fwd Diagnoses Fracture of hip S72.009A Anxiety F41.9 Essential (primary) hypertension I10 Hypothyroid E03.9
[2020-08-14] MEDS: D5-NS 0.45% + KCL 20 mEq 20 MEQ/1,000 ML BAG 75 MEQ IV (19:55)
[2020-08-14] MEDS: diazePAM 5 mg Tablet 10 MG PO (21:51)
[2020-08-15] VITALS (29 sets, daily range): BP systolic 95–146; BP diastolic 58–83; PULSE 67–90; RESP 14–25; TEMP 36.3–37.3; O2SAT 84–97
[2020-08-15] MEDS: oxyCODONE 5 mg IR Tab/Cap 10 MG PO ×2 (00:24→07:14)
[2020-08-15 06:51] LABS: Blood Urea Nitrogen 18 mg/dL (8-23); Calcium 8.5 mg/dL (8.5-10.5); Carbon Dioxide 29 mmol/L (22-29); Chloride 99 mmol/L (98-107); Glucose 114 mg/dL (65-115); Osmolality Calculated 283 mOsm/kg (285-295); Sodium 135 mmol/L (136-145)
--- NOTE | 2020-08-15 08:23 | PM.CONSULT ---
Providers/Reason For Consult Consulting Physician/Specialty*: Neri Mike MD; orthopedic surgery Reason for Consult*: Fracture left femoral neck Attending Physician: Matt Baum DO Primary Care Provider: HASMUKH Hernandez History of Present Illness History of Present Illness Kanika Lane is a 79 year old female who tripped at home on her grandchild's toy landing on her left hip with immediate pain. She states she has had a previous history of pain in the right but not so much the left hip. She was transferred here by EMS for radiographs revealed a left femoral neck fracture. She is admitted to medicine and orthopedics is consulted for management of the fracture. Meds/Allergies Home Medications and Allergies Home Medications Medication Instructions Recorded Confirmed Last Taken Type alprazolam 0.25 mg tablet 0.125 mg PO BEDTIME PRN 09/22/19 08/14/20 08/13/20 History Xlear 2 spray INTRANASAL TID #45 ml 12/19/19 08/14/20 Unknown Rx clonidine HCl 0.1 mg tablet 0.1 mg PO BID PRN #60 tab 02/06/20 08/14/20 Unknown Rx Diovan HCT 1 tab PO DAILY@1030 08/14/20 08/14/20 08/14/20 History Mobic 7.5 mg PO DAILY@1030 08/14/20 08/14/20 08/14/20 History Prozac 20 mg PO DAILY@1030 08/14/20 08/14/20 08/14/20 History levothyroxine 50 mcg PO DAILY@1030 08/14/20 08/14/20 08/14/20 History loratadine 10 mg PO DAILY PRN 08/14/20 08/14/20 08/14/20 History magnesium citrate 150 ml PO DAILY@1030 08/14/20 08/14/20 08/14/20 History Allergies Allergy/AdvReac Type Severity Reaction Status Date / Time codeine Allergy Unknown Unknown Verified 03/07/20 20:08 Penicillins Allergy Unknown Unknown Verified 03/07/20 20:08 Current Medications Current Medications Generic Name Dose Route Start Last Admin Trade Name Freq PRN Reason Stop Dose Admin Potassium Chloride/Dextrose/Sod Cl 20 meq in 1,000 mls @ 75 mls/hr 08/14/20 19:30 06/15/21 19:55 D5-Ns 0.45% + Kcl 20 Meq IV 75 mls/hr .[id number] TATI Administration Non-Formulary Medication 2 spray 08/14/20 21:00 08/14/20 21:52 Xlear INTRANASAL Not Given TID TATI Oxycodone HCl 10 mg 08/14/20 19:20 08/15/20 07:14 Oxycodone 5 Mg Ir Tab/Cap PO 10 mg Q6H PRN Administration MODERATE PAIN PFSH Acute PFSH: Medical History Anxiety DDD (degenerative disc disease), lumbar Essential (primary) hypertension Surgical History History of back surgery 1988 lumbar History of hernia repair History of hysterectomy Family History Other Cancer Diabetes Hypertension Denies family history of Dementia Stroke Social History Smoking and tobacco status: former smoker Second hand smoke exposure: No Smoking risk assessment/counseling performed?: No Alcohol intake: never Desire information about alcohol rehabilitation?: No Counseling given: No Desire information about substance/drug rehabilitation?: No Counseling given: No Adopted: No Caregiver/support person: No Lives independently: Yes Household members: spouse Housing: House Marital status: Number of children: 1 service: No Current occupational status: retired History of recent travel: No Current gender identity: Female Vitals/I&O/Wt Last Vital Signs Temp 98.0 F 08/15/20 08:05 Pulse 74 08/15/20 08:05 Resp 25 H 08/15/20 08:05 BP 128/77 08/15/20 08:05 Pulse Ox 90 08/15/20 08:05 08/14/20 08/15/20 08/15/20 22:59 06:59 14:59 Output Total 700 / 700 350 / 1050 Balance -700 / -700 -350 / -1050 Weight last 48 hrs Weight 200 lb Physical Exam Narrative: EXAM NARRATIVE: HEAD: Normocephalic/atraumatic. NECK: Soft supple nontender. HEART: Normal heart sounds, regular rhythm. CHEST: Clear to auscultation. ABDOMEN: Soft nontender nondistended. The patient is supine in bed with no visible deformity of the left hip. She has severe pain with motion of the left hip. She will flex extend her left toes and ankle. Palpable left dorsalis pedis pulse. Sensation intact light touch left foot Urinary Catheter Management^: Ray: Cath Placed During This Visit: yes Reason for Continuing Indwelling Catheter: Perioperative Use in Selected Surgeries Urinary Catheter Date of Insertion: 08/14/20 Urinary Catheter Time of Insertion: 16:30 Data Imaging^: Xray Ortho: My impression: Radiographs reviewed of the left pelvis and hip dated . The patient appears to have a valgus impacted fracture of the left femoral neck. There is some cystic change within the femoral head an lateral osteophytes consistent with some early degenerative change. A&P Assessment and plan (1) Fracture of femoral neck, left, closed: The patient has a valgus impacted fracture of the left femoral neck. There is cystic change and osteophytes consistent with some early osteoarthritis. I discussed treatment options with her. With the abnormal appearance of the joint and femoral head I think hemiarthroplasty would be the best option. At 79 years of age and she is older and her functional demands are lower not certain there will be great benefit toward additional total hip arthroplasty. I discussed options with the patient and family. I told them possible treatments for displaced femoral neck fracture would include nonoperative treatment, open reduction internal fixation, or hemiarthroplasty. I told them without treatment the patient would experience ongoing of pain that would limit mobility. This would require pain medications and place her at medical risks due to prolonged periods of bed rest. I discussed the possibility of open reduction internal fixation with pins. I warned them of the risk of nonunion and malunion is exceptionally high. In addition there is a high likelihood that the blood applied to the femoral head has been disrupted and that even with successful stabilization of the fracture the femoral head will go on to . I finally discussed the possibility of hemiarthroplasty. I think this would give the patient the greatest chance of being immediately mobilized. I discussed risk of a bleeding and a possible need for blood products. I discussed risk of deep venous thromboses and pulmonary emboli and the need for anticoagulation. I discussed the use of the TXA that may be utilized to diminish blood loss. I discussed risk of component failure and loosening that could require revision. I discussed the risk of dislocation and a bipolar arthroplasty which is quite unlikely. After a long discussion of options they agree to hemiarthroplasty of the hip. I told him ultimately the patient will likely require mcfp placement. Status: Acute Coding Level of Care Code Acute Nursing Informatics Specialist for [facility] Diagnoses Fracture of femoral neck, left, closed S72.002A
[2020-08-15] MEDS: D5-NS 0.45% + KCL 20 mEq 20 MEQ/1,000 ML BAG 75 MEQ IV (08:55)
--- NOTE | 2020-08-15 10:55 | PC.CHAP ---
Pastoral Care Encounter/Spiritual Assessment Type of Contact [] Declined gambling broker visit [] Patient/Family/Request visit [] Outpatient visit [] Follow-up visit [] Physician referral [] Code/Alert [x] Routine visit [] Staff referral [] Actively dying [] Patient sleeping [] Family support [] [] Out of room [] Palliative care [] [] Receiving care in room [] Pre-surgical visit [] Trauma [] Long length of stay [] ICU visit [] Other: Relational/Emotional Strength x] Patient feels connected with others/family/visitors/staff [] Distress [] Loneliness/isolation [] Abandonment Spirituality of Patient [x] Person of Shelly [] Attends Anglican of their Shelly [x] Believes in Prayer [] Reads Bible or Yazidi materials [] There are Spiritual issues to be addressed Manager Medicare Marketing Interventions x[] Prayer [x] Active listening [] Non-anxious presence [] Spiritual/emotional support [] Crisis/trauma care [] Spiritual counseling [] Bereavement support [] Provided bereavement packet [] Provided Bible/devotional materials [] Provided toy/stuffed animal, coloring book to patient or family member [] Provided Communion [] Anointing/[place] [] Salvation [x] Completed spiritual assessment [] Other: Impact on Illness or Injury [] Angry [] Fearful [] Anxious [] Often cries [] Exhaustion [] Unable to work [] Unable to attend druze [] Unable to walk/stand [] Unable to read [] Unable to drive [] Unable to eat/drink [] Unable to sleep [] Unable to be with family [] Patient intubated [] Other: Summary Time spent with patient 15 min
[2020-08-15] MEDS: meloxicam 7.5 mg tablet PO (10:58)
[2020-08-15] MEDS: levothyroxine 50 mcg Tablet PO (10:59)
[2020-08-15] MEDS: fluoxetine 20 mg Capsule PO (10:59)
[2020-08-15] MEDS: losartan 50 mg Tablet 100 MG PO (10:59)
[2020-08-15] MEDS: hydroCHLOROthiazide 25 mg Tablet PO (10:59)
--- NOTE | 2020-08-15 12:12 | ANES.PREANE2 ---
Pre-Anesthetic Assessment Pre-Anesthetic Assessment: Height/Weight: Height 1.73 m Weight 90.718 kg Temp Pulse Resp BP Pulse Ox 98.3 F 74 18 126/75 94 08/15/20 11:26 08/15/20 11:26 08/15/20 11:26 08/15/20 11:26 08/15/20 11:26 Proposed Procedure: Operation Date: 08/15/20 12:00 Proposed Procedures p Hemiarthroplasty Hip(Left) - Neri Mike MD Was Beta Jennifer taken within 24 hours: N/A Was Clonidine taken within 24 hours: N/A Last intake: Intake Last Liquid Date 08/14/20 Last Liquid Time 22:00 Last Solid Date 08/14/20 Last Solid Time 08:00 Social: Social History: No alcohol and No tobacco Exam: Pre-Anes Outpt Exam: alert, oriented x 3, clear to auscultation bilaterally and regular rate & rhythm Airway: Submandibular: WNL Cervical ROM: WNL MP: 2 Dentition: Full CV/HEM: CV/HEM: HTN Metabolic: Metabolic: Thyroid Musc/skel: Musc/skel: Lower Back Pain Comments: Back surgery Neuropsych: Neuropsych: Anxiety Anesthetic Plan: ASA status: 3 Anesthesia: Choice Risk of > 500 ml blood loss (7ml/kg in children): No Meds/Allergies Current Medications: Current Medications Generic Name Dose Route Start Last Admin Trade Name Freq PRN Reason Stop Dose Admin Docusate Sodium 100 mg 08/15/20 09:00 08/15/20 08:55 Docusate Sodium 100 Mg Capsule PO Not Given BID TATI Fluoxetine HCl 20 mg 08/15/20 10:30 08/15/20 10:59 Fluoxetine 20 Mg Capsule PO 20 mg DAILY@1030 TATI Administration Hydrochlorothiazid e 25 mg 08/15/20 10:30 08/15/20 10:59 Hydrochlorothiaz francisco javier 25 Mg Tablet PO 25 mg 1030 TATI Administration Potassium Chloride /Dextrose/Sod Cl 20 meq in 1,000 m ls @ 75 mls/hr 08/14/20 19:30 08/15/20 08:55 D5-Ns 0.45% + Silvio l 20 Meq IV 75 mls/hr .[id number] TATI Administration Levothyroxine Sodi um 50 mcg 08/15/20 10:30 08/15/20 10:59 Levothyroxine 50 Mcg Tablet PO 50 mcg DAILY@1030 TATI Administration Losartan Potassium 100 mg 08/15/20 10:30 08/15/20 10:59 Losartan 50 Mg T ablet PO 100 mg DAILY@1030 [facility] Administration Magnesium Citrate 150 ml 08/15/20 10:30 08/15/20 11:01 Magnesium Citrat e Btl 296 Ml PO Not Given DAILY@1030 [facility] Meloxicam 7.5 mg 08/15/20 10:30 08/15/20 10:58 Meloxicam 7.5 Mg Tablet PO 7.5 mg DAILY@1030 [facility] Administration Non-Formulary Medi cation 2 spray 08/14/20 21:00 08/15/20 08:53 Xlear INTRANASAL Not Given TID [facility] Oxycodone HCl 10 mg 08/14/20 19:20 08/15/20 07:14 Oxycodone 5 Mg I r Tab/Cap PO 10 mg Q6H PRN Administration MODERATE PAIN PFSH Anesthesia PFSH: Medical History Anxiety DDD (degenerative disc disease), lumbar Essential (primary) hypertension Surgical History History of back surgery 1988 lumbar History of hernia repair History of hysterectomy Family History Other Cancer Diabetes Hypertension Denies family history of Dementia Stroke Social History Smoking and tobacco status: former smoker Second hand smoke exposure: No Smoking risk assessment/counseling performed?: No Alcohol intake: never Desire information about alcohol rehabilitation?: No Counseling given: No Desire information about substance/drug rehabilitation?: No Counseling given: No Adopted: No Caregiver/support person: No Lives independently: Yes Household members: spouse Housing: House Marital status: Number of children: 1 service: No Current occupational status: retired History of recent travel: No Current gender identity: Female Data Anesthesia CBC & Chem 7: 08/14/20 14:35 08/15/20 05:40 Other Labs: Laboratory Results - last 48 hr 08/14/20 08/14/20 08/14/20 14:35 14:35 16:05 WBC 15.1 H RBC 4.34 Hgb 12.8 Hct 39.1 MCV 90.1 MCH 29.5 MCHC 32.7 RDW 12.8 Plt Count 375 MPV 10.9 H Neut % (Auto) 82.5 Lymph % (Auto) 8.7 Rhea % (Auto) 6.9 Eos % (Auto) 0.7 Baso % (Auto) 0.7 Neut # (Auto) 12.43 H Lymph # (Auto) 1.3 Rhea # (Auto) 1.0 H Eos # (Auto) 0.1 Baso # (Auto) 0.1 Nucleated RBC % (auto) 0 Nucleated RBCs # 0.0 Sodium 138 Potassium 4.0 Chloride 101 Carbon Dioxide 28 Anion Gap 13.0 BUN 26 H Creatinine 1.1 H GFR Calculation Not Reportable Glucose 120 H Calculated Osmolality 292 Calcium 8.3 L Total Bilirubin 0.3 AST 20 ALT 15 Alkaline Phosphatase 95 Total Protein 6.3 L Albumin 3.9 Globulin 2.4 Urine Color Yellow Urine Appearance Clear Urine pH 7 Ur Specific [place] 1.005 Urine Protein Neg Urine Glucose (UA) Norm Urine Ketones Negative Urine Blood Neg Urine Nitrate Negative Urine Bilirubin Neg Urine Urobilinogen Norm Ur Leukocyte Esterase Negative 08/15/20 05:40 WBC RBC Hgb Hct MCV MCH MCHC RDW Plt Count MPV Neut % (Auto) Lymph % (Auto) Rhea % (Auto) Eos % (Auto) Baso % (Auto) Neut # (Auto) Lymph # (Auto) Rhea # (Auto) Eos # (Auto) Baso # (Auto) Nucleated RBC % (auto) Nucleated RBCs # Sodium 135 L Potassium 4.0 Chloride 99 Carbon Dioxide 29 Anion Gap 11.0 BUN 18 Creatinine 1.0 H GFR Calculation Not Reportable Glucose 114 Calculated Osmolality 283 L Calcium 8.5 Total Bilirubin AST ALT Alkaline Phosphatase Total Protein Albumin Globulin Urine Color Urine Appearance Urine pH Ur Specific [place] Urine Protein Urine Glucose (UA) Urine Ketones Urine Blood Urine Nitrate Urine Bilirubin Urine Urobilinogen Ur Leukocyte Esterase Cardiac Studies: No Data to Display
[2020-08-15] MEDS: tranexamic acid 1,000 mg/10mL SDV 2000 MG IRRIGATION (13:53)
--- NOTE | 2020-08-15 14:13 | XR_ITS ---
WS: [id number] Exam: XR hip LT 1V wo/w pel [id number] Date/Time of Exam: 08/15/2020 2:21 PM Reason For Exam: status post hemiarthroplasty A left-sided hemiprosthesis of the hip has been placed. Postoperative changes in the adjacent soft ti ssues.
--- NOTE | 2020-08-15 14:15 | P.OP_ITS ---
Operative Report Date of procedure: August 15, 2020 Pre-op Diagnosis: Displaced left femoral neck fracture Post-op diagnosis: same Post-op Findings: Same Procedure Done: Left bipolar hip Implants: [place] 1) Securefit BEAN collored stem, size 9 2) 48 bipolar femoral head 3) 28mm/-3 neck length femoral head Pathology: none sent Surgeon: Neri Mike Anesthesia: General Estimated blood loss (mL): 100 Complications: None Condition: stable Disposition: PACU Brief History: The patient is a 79-year-old female who is displayed a valgus fracture of the left femoral neck with significant angulation. She had pre- existing early degenerative changes but was asymptomatic in the hip. There is a cystic change within the femoral head and it was felt that pinning would offer a high likelihood of nonunion. Bipolar arthroplasty was chosen to provide a reliable option would allow immediate resumption of full weightbearing. Procedure: The patient was taken to the operating room and a general l anesthesia was provided by the anesthesia service. They were given 2 g of Ancef. and positioned in the lateral position with the hip exposed. A 10 cm long incision was made over the greater trochanter with a scalpel blade. Dissection was carried down through the fascia akash to the greater trochanter. The anterior two thirds of gluteus medius and minimus were elevated off the greater trochanter with electrocautery. The capsule was divided T like fashion. The hip was externally rotated and the neck brought up into the wound. An oscillating saw was really used to resect the neck just above the level of the lesser trochanter. The femoral head was removed and the acetabulumt sized to a 48 mm bipolar head. Sequential reaming and broaching of the canal was accomplished up to a size 9. A size 9 [place] Securefit BEAN stem was press fit into place. A trial reduction with a -3 mm neck provided excellent stability. The final head and neck were placed and the hip reduced. The anterior capsule were reapproximated with 1 Ethibond. The gluteus medius and minimus were repaired through the greater trochanter with 5 Ethibond and reinforced with 1 Ethibond. The fascia akash was closed with 1 Stratafix. The subcutaneous tissues were closed with 2-0 Stratafixl. The skin was closed with a running 3-0 Stratafix. Sterile dressings were applied. The patient was placed in abduction pillow and taken recovery room in stable condition.
--- NOTE | 2020-08-15 14:33 | SUR.PHASEI ---
1420 PT HAS SENSATION/MOVEMENT TO L. FOOT, PEDAL PULSE PALPATED, CAP REFILL <3 SEC
--- NOTE | 2020-08-15 14:35 | SUR.PHASEI ---
1435 FIRST ICE APPLIED TO L. HIP
--- NOTE | 2020-08-15 15:17 | ANE.PACU2 ---
Inpatient post-anesthesia follow up: Airway intact: Yes Vital signs: Temperature 97.6 F Pulse Rate [Right Radial] 75 Pulse Rate 81 Respiratory Rate 16 Blood Pressure [Ri ght Arm] 164/99 Blood Pressure 145/70 Pulse Oximetry 95 Oxygen Delivery Me thod [Rate & Nasal Cannula Delivery Changed T o] Oxygen Delivery Me thod [ Room Air Current Rate & Del rey] Oxygen Delivery Me thod Nasal Cannula Oxygen Flow Rate [ Rate & 2.5 Delivery Changed T o] Oxygen Flow Rate 4 Fraction of Inspir ed Oxygen Hydration adequate: Yes Nausea and vomiting: No Pain level: 3 Mental status: Baseline
[2020-08-15] MEDS: sodium chloride 0.9% 1,000 ML 100 ML IV (15:37)
[2020-08-15] MEDS: morphine 4 mg/mL SDV 1 mL 2 MG IVP (15:46)
--- NOTE | 2020-08-15 17:03 | P.PN_ITS ---
Subjective Subjective: Interval history: This is 8 entry for August 16. I saw the patient around 5 PM. The patient had returned from the OR approximately 2 hours earlier. When I walked in the room she was smiling. She felt much better. No complaints. Very pleased with her sleep last night. Vitals/I&O/Wt Last Vital Signs Temp 97.2 F L 08/16/20 08:16 Pulse 79 08/16/20 08:16 Resp 16 08/16/20 08:16 BP 130/77 08/16/20 08:56 Pulse Ox 94 08/16/20 08:16 08/15/20 08/16/20 08/16/20 22:59 06:59 14:59 Intake Total 530 / 1765 1510 / 3275 Output Total 100 / 600 250 / 850 350 / 350 Balance 430 / 1165 1260 / 2425 -350 / -350 Weight last 48 hrs Weight 90.718 kg Physical Exam Narrative: EXAM NARRATIVE: In general, she appears her stated age of 79 she is in no acute distress Heart regular normal S1-S2 without murmurs Lungs clear to auscultation Abdomen soft nontender nondistended normal bowel sounds Extremities no clubbing cyanosis or edema Urinary Catheter Management^: Ray: Cath Placed During This Visit: yes, but has since been removed by the nurse Reason for Continuing Indwelling Catheter: Perioperative Use in Selected Surgeries Urinary Catheter Date of Insertion: 08/14/20 Urinary Catheter Time of Insertion: 16:30 Date Urinary Catheter Removed: 08/16/20 Time Urinary Catheter Discontinued: 07:48 Data : 08/16/20 02:50 08/16/20 02:50 A&P Assessment and plan (1) Fracture of femoral neck, left, closed: Status post nailing of left hip. Patient was able to ambulate with walker. Home health care is recommended. This was ordered this morning Status: Acute (2) Hypothyroid: Continue home dose of levothyroxine Status: Acute (3) Anxiety: Will repeat Valium tonight. This will be at a lower dose since she is more comfortable today. Status: Chronic (4) Essential (primary) hypertension: Blood pressure stable continue home dose of Diovan Status: Chronic Attestations Medical Necessity Statement*: Patient anticipated to d/c tomorrow after PT assessment for home safety Coding Level of Care Code Acute Educational Administrator for Chg Fwd Diagnoses Fracture of femoral neck, left, closed S72.002A Hypothyroid E03.9 Anxiety F41.9 Essential (primary) hypertension I10
[2020-08-15] MEDS: sennosides-docusate Tablet 2 TAB PO (17:45)
[2020-08-15] MEDS: docusate sodium 100 mg Capsule PO (17:45)
[2020-08-15] MEDS: chlorhexidine gluconate 0.12% Btl 473 mL 30 ML MUCOUS MEM ×2 (17:45→20:21)
[2020-08-15] MEDS: HYDROcodone-acetaminophen 5-325 mg Tablet 1 TAB PO ×2 (17:51→22:04)
[2020-08-15] MEDS: diazePAM 5 mg Tablet PO (22:04)
[2020-08-16] VITALS (8 sets, daily range): BP systolic 90–130; BP diastolic 55–77; PULSE 74–111; RESP 16–22; TEMP 36.2–36.7; O2SAT 89–98
[2020-08-16] MEDS: sodium chloride 0.9% 1,000 ML 100 ML IV ×3 (02:22→22:16)
[2020-08-16 03:27] LABS: Basophils % 0.4 %; Eosinophils # 0.2 10^3/uL (0.0-0.8); Hematocrit 34.6 % (37.0-47.0); Lymphocytes # 0.8 10^3/uL (0.8-4.8); Lymphocytes % 9.9 %; Mean Corpuscular HGB Conc 31.8 g/dL (30.0-36.0); Mean Corpuscular Hemoglobin 29.7 pg (28.0-34.0); Mean Corpuscular Volume 93.5 fL (81-99); Mean Platelet Volume 11.1 fL (7.4-10.4); Monocytes # 0.9 10^3/uL (0.2-0.9); Monocytes % 10.5 %; Neutrophils # 6.41 10^3/uL (1.8-7.7); Nucleated Red Blood Cells % 0 %; Platelet Count 231 10^3/cmm (130-400); Red Cell Distribution Width 13.2 % (12.1-15.1); White Blood Count 8.3 10^3/uL (4.0-10.0)
[2020-08-16 03:49] LABS: Anion Gap 11.3 (5-19); Blood Urea Nitrogen 17 mg/dL (8-23); Calcium 7.3 mg/dL (8.5-10.5); Carbon Dioxide 28 mmol/L (22-29); Chloride 100 mmol/L (98-107); Glucose 105 mg/dL (65-115); Osmolality Calculated 282 mOsm/kg (285-295); Potassium 4.3 mmol/L (3.5-5.1); Sodium 135 mmol/L (136-145)
[2020-08-16] MEDS: sennosides-docusate Tablet 2 TAB PO ×2 (08:55→16:36)
[2020-08-16] MEDS: aspirin 325 mg EC Tablet PO (08:55)
[2020-08-16] MEDS: docusate sodium 100 mg Capsule PO ×2 (08:55→16:36)
[2020-08-16] MEDS: levothyroxine 50 mcg Tablet PO (08:56)
[2020-08-16] MEDS: losartan 50 mg Tablet 100 MG PO (08:56)
[2020-08-16] MEDS: fluoxetine 20 mg Capsule PO (08:56)
[2020-08-16] MEDS: hydroCHLOROthiazide 25 mg Tablet PO (08:56)
[2020-08-16] MEDS: chlorhexidine gluconate 0.12% Btl 473 mL 30 ML MUCOUS MEM ×4 (08:59→21:44)
[2020-08-16] MEDS: ondansetron 2 mg/ML SDV 2 mL 4 MG IVP (11:10)
--- NOTE | 2020-08-16 11:13 | P.PN_ITS ---
Subjective Subjective: Interval history: Patient had a good night sleep. When getting up with physical therapy as she sat on the side of the bed and she became severely nauseous and vomited breakfast. At this time she is eating a few bites of saltine and milk. She is still feeling nauseous. Vitals/I&O/Wt Last Vital Signs Temp 97.2 F L 08/16/20 08:16 Pulse 79 08/16/20 08:16 Resp 16 08/16/20 08:16 BP 130/77 08/16/20 08:56 Pulse Ox 94 08/16/20 08:16 08/15/20 08/16/20 08/16/20 22:59 06:59 14:59 Intake Total 530 / 1765 1510 / 3275 1240 / 1240 Output Total 100 / 600 250 / 850 350 / 350 Balance 430 / 1165 1260 / 2425 890 / 890 Weight last 48 hrs Weight 90.718 kg Physical Exam Narrative: EXAM NARRATIVE: In general, she appears her stated age of 79 she is in no acute distress Heart regular normal S1-S2 without murmurs Lungs clear to auscultation Abdomen soft nontender nondistended normal bowel sounds Extremities no clubbing cyanosis or edema Urinary Catheter Management^: Ray: Cath Placed During This Visit: yes, but has since been removed by the nurse Reason for Continuing Indwelling Catheter: Perioperative Use in Selected Surgeries Urinary Catheter Date of Insertion: 08/14/20 Urinary Catheter Time of Insertion: 16:30 Date Urinary Catheter Removed: 08/16/20 Time Urinary Catheter Discontinued: 07:48 Data : 08/16/20 02:50 08/16/20 02:50 A&P Assessment and plan (1) Fracture of femoral neck, left, closed: Status post nailing of left hip. Patient was able to ambulate with walker. Home health care is recommended. Status: Acute (2) Hypothyroid: Continue home dose of levothyroxine Status: Acute (3) Anxiety: . Status: Chronic (4) Essential (primary) hypertension: Blood pressure stable continue home dose of Diovan Status: Chronic (5) Nausea & vomiting: Status: Acute Attestations Medical Necessity Statement*: Patient with nausea and vomiting. Will need to reassess for midnight stay. I would anticipate another midnight stay for a total of 2 midnights Coding Level of Care Code Acute Printing Engineer for Chg Fwd Diagnoses Fracture of femoral neck, left, closed S72.002A Hypothyroid E03.9 Anxiety F41.9 Essential (primary) hypertension I10 Nausea & vomiting R11.2
--- NOTE | 2020-08-16 12:27 | PM.PN ---
Subjective Subjective: Interval history: Complains of nausea when up. Pain OK Vitals/I&O/Wt Last Vital Signs Temp 97.6 F 08/16/20 11:50 Pulse 111 H 08/16/20 11:50 Resp 22 H 08/16/20 11:50 BP 106/67 08/16/20 11:50 Pulse Ox 96 08/16/20 11:50 08/15/20 08/16/20 08/16/20 22:59 06:59 14:59 Intake Total 530 / 1765 1510 / 3275 1240 / 1240 Output Total 100 / 600 250 / 850 350 / 350 Balance 430 / 1165 1260 / 2425 890 / 890 Weight last 48 hrs Weight 200 lb Physical Exam Narrative: EXAM NARRATIVE: Left hip incision clean and dry. Minimal thigh swelling Urinary Catheter Management^: Ray: Cath Placed During This Visit: yes, but has since been removed by the nurse Reason for Continuing Indwelling Catheter: Perioperative Use in Selected Surgeries Urinary Catheter Date of Insertion: 08/14/20 Urinary Catheter Time of Insertion: 16:30 Date Urinary Catheter Removed: 08/16/20 Time Urinary Catheter Discontinued: 07:48 Data : 08/16/20 02:50 08/16/20 02:50 A&P Assessment and plan (1) Postoperative state: continue to mobilize with therapy. Hopefully can discharge home. Status: Acute Attestations Medical Necessity Statement*: Discharge home when ambulatory. May need snf. Coding Level of Care Code Acute Ceiling Insulation Blower for Juan Carlos Mckeon Diagnoses Postoperative state Z98.890
--- NOTE | 2020-08-16 14:46 | CT_ITS ---
WS: [id number] CTA OF THE CHEST WITH PULMONARY EMBOLISM PROTOCOL TECHNIQUE: High-resolution contrast enhanced CTA of the chest with coronal and sagittal reformatted i mages with pulmonary embolism protocol. MIP images are also reviewed. CLINICAL INFORMATION: hypoxia COMPARISON: None. DLP: 547.[address] scans at [facility] use at least one of these dose optimization techniques: automat ed exposure control; mA and/or kV adjustment per patient size (includes targeted exams where dose is matched to clinical indication); or iterative reconstruction. FINDINGS: Proximal main pulmonary arteries are normal. Extensive bilateral filling defects in distal main pulmo nary arteries extending into the segmental and subsegmental pulmonary arteries bilaterally. This invo lves the left upper lobe, lingula, and left lower lobe. On the right this involves the right upper an d lower lobes and right middle lobe. Findings consistent with pulmonary embolus. Normal caliber thora cic aorta. Moderate chronic emphysematous changes. Subsegmental atelectasis right lower lobe and both lung bases . Trace bilateral pleural fluid. Slight hazy groundglass infiltrate in the right upper lobe along the fissure. No mediastinal or hilar lymphadenopathy. No axillary lymphadenopathy. Adrenal glands are normal. Mode rate esophageal hiatal hernia. CT/CT angio chest PE protcl [id number] IMPRESSION: 1. Extensive bilateral pulmonary embolus with filling defects in the segmental and subsegmental pulmonary arteries bilaterally described above. 2. Tiny bilateral pleural effusions with dependent atelectasis in the lung bas es. 3. No evidence of right ventricular strain. 4. Subsegmental atelectasis right lower lobe. Slight hazy groundglass infiltra te in the right upper lobe along the fissure may be infectious or inflammatory. 5. Moderate chronic emphysematous changes. 6. No significant pericardial effusion. 7. Moderate esophageal hiatal hernia. Notified Matt Baum DO at 08/16/2020 4:01 PM.
[2020-08-16] MEDS: iodixanol 320 mg/mL 100mL Btl IV (15:46)
[2020-08-16] MEDS: pantoprazole 40 mg SDV IVP ×2 (16:30)
[2020-08-16] MEDS: heparin 5,000 unit/mL INJ 1 mL IV (16:30)
[2020-08-16] MEDS: CELEcoxib 200 mg Capsule PO (16:36)
[2020-08-16] MEDS: hyDROXYzine 25 mg Capsule PO ×2 (16:36→21:44)
[2020-08-16] MEDS: heparin drip 25,000 UNIT/500 ML PREMIX 26 UNIT IV (16:39)
[2020-08-16] MEDS: calcium carbonate 500 mg Chew Tablet 1000 MG PO (18:03)
[2020-08-16 22:38] LABS: INR 1.12 (0.8-1.2)
[2020-08-16 23:19] LABS: Partial Thromboplastin Time 136.3 SECONDS (23.9-36.7)
[2020-08-17] VITALS (7 sets, daily range): BP systolic 102–120; BP diastolic 64–89; PULSE 78–97; RESP 16–20; TEMP 36.4–37.1; O2SAT 91–95
--- NOTE | 2020-08-17 01:26 | PC.NURSE ---
O2 Patient O2 sats 85% on 2L per NC. Patient in no distress. O2 increased to 3.5L/NC and O2 sats came up to 94%. Patient care nurse MICHELL Cárdenas notified.
--- NOTE | 2020-08-17 05:17 | PC.NURSE ---
O2 Patient oxygen per NC raised from 3.5L to 5L for O2 sats of 87% on 3.5L NC. Sats came up to 95% after increasing O2. Patient care nurse notified.
[2020-08-17 05:36] LABS: Basophils # 0.1 10^3/uL (0.0-0.1); Basophils % 0.6 %; Eosinophils # 0.2 10^3/uL (0.0-0.8); Eosinophils % 1.9 %; Hematocrit 30.7 % (37.0-47.0); Hemoglobin 9.8 g/dL (11.5-15.3); Lymphocytes # 0.6 10^3/uL (0.8-4.8); Lymphocytes % 7.2 %; Mean Corpuscular HGB Conc 31.9 g/dL (30.0-36.0); Mean Corpuscular Hemoglobin 29.3 pg (28.0-34.0); Mean Corpuscular Volume 91.6 fL (81-99); Mean Platelet Volume 11.1 fL (7.4-10.4); Monocytes # 0.9 10^3/uL (0.2-0.9); Monocytes % 10.9 %; Neutrophils % 78.9 %; Nucleated Red Blood Cells % 0 %; Platelet Count 176 10^3/cmm (130-400); Red Blood Count 3.35 10^6/uL (4.1-5.3); White Blood Count 8.2 10^3/uL (4.0-10.0)
[2020-08-17 05:54] LABS: Partial Thromboplastin Time 78.5 SECONDS (23.9-36.7)
[2020-08-17 06:01] LABS: Anion Gap 9.9 (5-19); Blood Urea Nitrogen 12 mg/dL (8-23); Calcium 7.6 mg/dL (8.5-10.5); Carbon Dioxide 26 mmol/L (22-29); Chloride 101 mmol/L (98-107); Glucose 112 mg/dL (65-115); Osmolality Calculated 277 mOsm/kg (285-295); Potassium 3.9 mmol/L (3.5-5.1); Sodium 133 mmol/L (136-145)
[2020-08-17] MEDS: sodium chloride 0.9% 1,000 ML 100 ML IV ×2 (08:45→17:10)
[2020-08-17] MEDS: sennosides-docusate Tablet 2 TAB PO (08:45)
[2020-08-17] MEDS: docusate sodium 100 mg Capsule PO ×2 (08:46→17:09)
[2020-08-17] MEDS: hyDROXYzine 25 mg Capsule PO ×3 (08:46→20:26)
[2020-08-17] MEDS: CELEcoxib 200 mg Capsule PO ×2 (08:46→17:09)
[2020-08-17] MEDS: aspirin 325 mg EC Tablet PO (08:46)
[2020-08-17] MEDS: losartan 50 mg Tablet 100 MG PO (11:10)
[2020-08-17] MEDS: fluoxetine 20 mg Capsule PO (11:11)
[2020-08-17] MEDS: levothyroxine 50 mcg Tablet PO (11:11)
[2020-08-17] MEDS: chlorhexidine gluconate 0.12% Btl 473 mL 30 ML MUCOUS MEM ×4 (11:15→20:26)
--- NOTE | 2020-08-17 11:36 | PC.SOCIAL ---
IMM Update Pg. 2 of [facility] updated and reviewed with patient who verbalized understanding, copy provided.
--- NOTE | 2020-08-17 12:44 | PC.OT ---
Occupational therapy held per heparin protocol
[2020-08-17 12:54] LABS: Partial Thromboplastin Time 55.5 SECONDS (23.9-36.7)
[2020-08-17] MEDS: heparin drip 25,000 UNIT/500 ML PREMIX 18 UNIT IV (17:03)
--- NOTE | 2020-08-17 17:46 | P.PN_ITS ---
Subjective Subjective: Interval history: Mild resp distress. Medications: Reviewed: Yes Vitals/I&O/Wt Last Vital Signs Temp 97.5 F L 08/17/20 17:00 Pulse 82 08/17/20 17:00 Resp 16 08/17/20 17:00 BP 120/89 08/17/20 17:00 Pulse Ox 92 08/17/20 17:00 08/17/20 08/17/20 08/17/20 06:59 14:59 22:59 Intake Total 308.1 / 3221.433 1240 / 1240 1033.567 / 2273.567 Output Total 600 / 1550 Balance -291.9 / 3282.041 8194 / 1240 1033.567 / 2273.567 Physical Exam Narrative: EXAM NARRATIVE: Left hip incision clean and dry. Minimal thigh swelling Const: COMMON NORMALS: no acute distress, average body habitus, patient orie nted x3, no limitations, healthy appearing, alert and well nourished GENERAL APPEARANCE: cooperative, comfortable, well kempt and well developed ORIENTATION/CONSCIOUSNESS: Yes awake, Yes oriented to person, Yes oriented to place and Yes oriented to time HENMT: COMMON NORMALS: normocephalic, external ears normal and Normal external nose present HEAD & SCALP: normal to inspection and normocephalic NOSE: Normal external nose present EXTERNAL EAR: Yes external ears normal MOUTH: Normal oral and palatal mucosa present THROAT: posterior oropharynx normal Eye: COMMON NORMALS: Equal, round and reactive pupils present and EOMs intact bilaterally GENERAL EYE: appearance normal, both eyes and all related structures PUPIL: Yes Equal, round and reactive pupils present Neck/C-Spine: COMMON NORMALS: full ROM, no lymphadenopathy, no meningeal signs and no JVD GENERAL: Yes normal visual inspection Chest: COMMONS NORMALS: normal inspection of the chest and normal palpation of entire chest wall Cardio: COMMON NORMALS: no JVD, regular rate, regular rhythm, S1 normal heart sound present, S2 normal heart sound present and Peripheral pulses 2+ throughout RATE: regular rate RHYTHM: regular rhythm HEART SOUNDS: S1 normal heart sound present and S2 normal heart sound present PERIPHERAL PULSES: Peripheral pulses 2+ throughout : COMMON NORMALS: Yes no CVA tenderness BLADDER/KIDNEY EXAM: Yes no CVA tenderness Back/Pelvis: COMMON NORMALS: no CVA tenderness, thoracic and lumbar spine normal to inspection, no thoracic nor lumbar tenderness and thoraco-lumbar ROM normal Extremity: COMMON NORMALS: normal to inspection, full ROM, capillary refill normal, no joint enlargement and no pedal edema GENERAL: Yes normal exam except as noted Neuro: COMMON NORMALS: patient oriented x3 SENSORIUM/ORIENTATION: Yes alert, Yes oriented to person, Yes oriented to place and Yes oriented to time MENINGEAL SIGNS: Yes no meningeal signs Psych: APPEARANCE: Yes well kempt Urinary Catheter Management^: Ray: Cath Placed During This Visit: yes, but has since been removed by the nurse Reason for Continuing Indwelling Catheter: Perioperative Use in Selected Surgeries Urinary Catheter Date of Insertion: 08/14/20 Urinary Catheter Time of Insertion: 16:30 Date Urinary Catheter Removed: 08/16/20 Time Urinary Catheter Discontinued: 07:48 Data : 08/17/20 05:25 08/17/20 05:25 A&P Assessment and plan (1) Fracture of femoral neck, left, closed: Status post nailing of left hip. Patient was able to ambulate with walker. Home health care is recommended. Status: Acute (2) Hypothyroid: Continue home dose of levothyroxine Status: Acute (3) Anxiety: . Status: Chronic (4) Essential (primary) hypertension: Blood pressure stable continue home dose of Diovan Status: Chronic (5) Nausea & vomiting: Status: Acute (6) Bilateral pulmonary embolism: Heparin gtt dw ortho monior ptt Status: Acute Attestations Medical Necessity Statement*: further hospital stay for eval and treatmnet. Time Spent in Patient Care: Greater than 35 minutes (>than 50% of time spent in counselling and/or direct pt care on unit) . Coding Level of Care Code Acute Compressor Operator Portable for [facility] Fwd Diagnoses Fracture of femoral neck, left, closed S72.002A Hypothyroid E03.9 Anxiety F41.9 Essential (primary) hypertension I10 Nausea & vomiting R11.2 Bilateral pulmonary embolism I26.99
[2020-08-17 19:24] LABS: Partial Thromboplastin Time 37.5 SECONDS (23.9-36.7)
--- NOTE | 2020-08-17 19:50 | PC.NURSE ---
HEPARIN DRIP PTT 37.5. Drip increased by 200units/4ml/hr and bolus given by RN
[2020-08-17] MEDS: heparin 5,000 unit/mL INJ 1 mL IV (20:20)
[2020-08-17] MEDS: TRAMadol 50 mg Tablet PO (23:27)
[2020-08-18] VITALS (8 sets, daily range): BP systolic 103–135; BP diastolic 67–76; PULSE 74–88; RESP 17–20; TEMP 36.4–36.9; O2SAT 91–98
[2020-08-18 02:25] LABS: Basophils % 0.6 %; Eosinophils # 0.4 10^3/uL (0.0-0.8); Eosinophils % 5.3 %; Hematocrit 28.6 % (37.0-47.0); Hemoglobin 9.2 g/dL (11.5-15.3); Lymphocytes # 0.8 10^3/uL (0.8-4.8); Lymphocytes % 12.2 %; Mean Corpuscular HGB Conc 32.2 g/dL (30.0-36.0); Mean Corpuscular Volume 93.2 fL (81-99); Mean Platelet Volume 12.2 fL (7.4-10.4); Monocytes # 0.8 10^3/uL (0.2-0.9); Monocytes % 11.4 %; Nucleated Red Blood Cells % 0 %; Platelet Count 167 10^3/cmm (130-400); Red Blood Count 3.07 10^6/uL (4.1-5.3); Red Cell Distribution Width 13.2 % (12.1-15.1); White Blood Count 6.6 10^3/uL (4.0-10.0)
[2020-08-18 02:35] LABS: Partial Thromboplastin Time 95.1 SECONDS (23.9-36.7)
[2020-08-18] MEDS: sodium chloride 0.9% 1,000 ML 100 ML IV (02:51)
--- NOTE | 2020-08-18 06:36 | PC.NURSE ---
SHIFT SUMMARY Has had a good night. Did take po Tramadol X1 for pain in left hip and stated good relief obtained.Gets up to BSC with SBA and does well. ABD pillow in place. Dressing to left hip C&D. Some edema to left hip/thigh. IV infusing without difficulty and Heparin drip infusing. Rate was lowered to 16ml/hr with last PTT drawn and next ordered for 0845 this am.
[2020-08-18] MEDS: hyDROXYzine 25 mg Capsule PO ×3 (08:28→20:13)
[2020-08-18] MEDS: aspirin 325 mg EC Tablet PO (08:28)
[2020-08-18] MEDS: docusate sodium 100 mg Capsule PO ×2 (08:28→17:40)
[2020-08-18] MEDS: CELEcoxib 200 mg Capsule PO ×2 (08:28→17:40)
[2020-08-18 10:32] LABS: Partial Thromboplastin Time 45.7 SECONDS (23.9-36.7)
[2020-08-18] MEDS: chlorhexidine gluconate 0.12% Btl 473 mL 30 ML MUCOUS MEM ×4 (10:48→20:14)
[2020-08-18] MEDS: losartan 50 mg Tablet 100 MG PO (10:48)
[2020-08-18] MEDS: fluoxetine 20 mg Capsule PO (10:48)
[2020-08-18] MEDS: levothyroxine 50 mcg Tablet PO (10:48)
[2020-08-18] MEDS: heparin 5,000 unit/mL INJ 1 mL IV ×2 (10:56→18:28)
--- NOTE | 2020-08-18 17:27 | PM.PN ---
Subjective Subjective: Interval history: Mild resp distress. Medications: Reviewed: Yes Vitals/I&O/Wt Last Vital Signs Temp 98.0 F 08/18/20 20:00 Pulse 88 08/18/20 20:00 Resp 20 H 08/18/20 20:00 BP 113/72 08/18/20 20:00 Pulse Ox 91 08/18/20 20:00 08/18/20 08/18/20 08/19/20 14:59 22:59 06:59 Intake Total 2122. / 2122. 754.7 / 2877.8 Output Total 400 / 400 Balance 2122. / 2122. 354.7 / 2477.8 Physical Exam Narrative: EXAM NARRATIVE: Left hip incision clean and dry. Minimal thigh swelling Const: COMMON NORMALS: no acute distress, average body habitus, patient oriented x3, no limitations, healthy appearing, alert and well nourished GENERAL APPEARANCE: cooperative, comfortable, well kempt and well developed ORIENTATION/CONSCIOUSNESS: Yes awake, Yes oriented to person, Yes oriented to place and Yes oriented to time HENMT: COMMON NORMALS: normocephalic, external ears normal and Normal external nose present HEAD & SCALP: normal to inspection and normocephalic NOSE: Normal external nose present EXTERNAL EAR: Yes external ears normal MOUTH: Normal oral and palatal mucosa present THROAT: posterior oropharynx normal Eye: COMMON NORMALS: Equal, round and reactive pupils present and EOMs intact bilaterally GENERAL EYE: appearance normal, both eyes and all related structures PUPIL: Yes Equal, round and reactive pupils present Neck/C-Spine: COMMON NORMALS: full ROM, no lymphadenopathy, no meningeal signs and no JVD GENERAL: Yes normal visual inspection Chest: COMMONS NORMALS: normal inspection of the chest and normal palpation of entire chest wall Cardio: COMMON NORMALS: no JVD, regular rate, regular rhythm, S1 normal heart sound present, S2 normal heart sound present and Peripheral pulses 2+ throughout RATE: regular rate RHYTHM: regular rhythm HEART SOUNDS: S1 normal heart sound present and S2 normal heart sound present PERIPHERAL PULSES: Peripheral pulses 2+ throughout : COMMON NORMALS: Yes no CVA tenderness BLADDER/KIDNEY EXAM: Yes no CVA tenderness Back/Pelvis: COMMON NORMALS: no CVA tenderness, thoracic and lumbar spine normal to inspection, no thoracic nor lumbar tenderness and thoraco-lumbar ROM normal Extremity: COMMON NORMALS: normal to inspection, full ROM, capillary refill normal, no joint enlargement and no pedal edema GENERAL: Yes normal exam except as noted Neuro: COMMON NORMALS: patient oriented x3 SENSORIUM/ORIENTATION: Yes alert, Yes oriented to person, Yes oriented to place and Yes oriented to time MENINGEAL SIGNS: Yes no meningeal signs Psych: APPEARANCE: Yes well kempt Urinary Catheter Management^: Ray: Cath Placed During This Visit: yes, but has since been removed by the nurse Reason for Continuing Indwelling Catheter: Perioperative Use in Selected Surgeries Urinary Catheter Date of Insertion: 08/14/20 Urinary Catheter Time of Insertion: 16:30 Date Urinary Catheter Removed: 08/16/20 Time Urinary Catheter Discontinued: 07:48 Data : 08/18/20 01:52 08/17/20 05:25 A&P Assessment and plan (1) Fracture of femoral neck, left, closed: Status post nailing of left hip. Patient was able to ambulate with walker. Home health care is recommended. Status: Acute (2) Hypothyroid: Continue home dose of levothyroxine Status: Acute (3) Anxiety: . Status: Chronic (4) Essential (primary) hypertension: Blood pressure stable continue home dose of Diovan Status: Chronic (5) Nausea & vomiting: Status: Acute (6) Bilateral pulmonary embolism: Heparin gtt dw ortho monior ptt Status: Acute Attestations Medical Necessity Statement*: continue hospitalization formanagement of pe Time Spent in Patient Care: Greater than 35 minutes (>than 50% of time spent in counselling and/or direct pt care on unit). Coding Level of Care Code Acute Inside Account Executive for Juan Carlos Mckeon Diagnoses Fracture of femoral neck, left, closed S72.002A Hypothyroid E03.9 Anxiety F41.9 Essential (primary) hypertension I10 Nausea & vomiting R11.2 Bilateral pulmonary embolism I26.99
[2020-08-18 18:03] LABS: Partial Thromboplastin Time 51.7 SECONDS (23.9-36.7)
[2020-08-18] MEDS: heparin drip 25,000 UNIT/500 ML PREMIX 20 UNIT IV (18:29)
[2020-08-18] MEDS: TRAMadol 50 mg Tablet PO (21:21)
[2020-08-18] MEDS: calcium carbonate 500 mg Chew Tablet 1000 MG PO (21:22)
[2020-08-19] VITALS (9 sets, daily range): BP systolic 109–176; BP diastolic 71–95; PULSE 70–81; RESP 16–18; TEMP 36.6–36.9; O2SAT 90–94; BMI 30.4
[2020-08-19 01:13] LABS: Basophils # 0.1 10^3/uL (0.0-0.1); Basophils % 0.9 %; Eosinophils # 0.4 10^3/uL (0.0-0.8); Eosinophils % 6.6 %; Hematocrit 28.2 % (37.0-47.0); Hemoglobin 9.2 g/dL (11.5-15.3); Lymphocytes # 0.7 10^3/uL (0.8-4.8); Lymphocytes % 13.7 %; Mean Corpuscular HGB Conc 32.6 g/dL (30.0-36.0); Mean Corpuscular Hemoglobin 30.1 pg (28.0-34.0); Mean Corpuscular Volume 92.2 fL (81-99); Mean Platelet Volume 11.5 fL (7.4-10.4); Monocytes # 0.7 10^3/uL (0.2-0.9); Monocytes % 12.2 %; Neutrophils # 3.56 10^3/uL (1.8-7.7); Neutrophils % 65.7 %; Nucleated Red Blood Cells % 0 %; Platelet Count 199 10^3/cmm (130-400); Red Blood Count 3.06 10^6/uL (4.1-5.3); Red Cell Distribution Width 13.2 % (12.1-15.1); White Blood Count 5.4 10^3/uL (4.0-10.0)
[2020-08-19 01:21] LABS: Partial Thromboplastin Time 59.3 SECONDS (23.9-36.7)
[2020-08-19 01:24] LABS: Alanine Aminotransferase 49 U/L (0-33); Albumin Level 2.8 g/dL (3.5-5.2); Alkaline Phosphatase 202 IU/L (35-105); Anion Gap 8.8 (5-19); Aspartate Amino Transferase 83 U/L (0-32); Blood Urea Nitrogen 18 mg/dL (8-23); Calcium 7.8 mg/dL (8.5-10.5); Carbon Dioxide 25 mmol/L (22-29); Chloride 108 mmol/L (98-107); Globulin 2.2 g/dL (1.3-4.6); Glucose 96 mg/dL (65-115); Osmolality Calculated 288 mOsm/kg (285-295); Potassium 3.8 mmol/L (3.5-5.1); Sodium 138 mmol/L (136-145); Total Bilirubin 0.5 mg/dL (0.15-1.2)
[2020-08-19 07:45] LABS: Partial Thromboplastin Time 54.2 SECONDS (23.9-36.7)
[2020-08-19] MEDS: sennosides-docusate Tablet 2 TAB PO ×2 (10:27→17:10)
[2020-08-19] MEDS: fluoxetine 20 mg Capsule PO (10:28)
[2020-08-19] MEDS: losartan 50 mg Tablet 100 MG PO (10:28)
[2020-08-19] MEDS: aspirin 325 mg EC Tablet PO (10:28)
[2020-08-19] MEDS: hyDROXYzine 25 mg Capsule PO ×3 (10:28→21:28)
[2020-08-19] MEDS: docusate sodium 100 mg Capsule PO ×2 (10:28→17:10)
[2020-08-19] MEDS: levothyroxine 50 mcg Tablet PO (10:28)
[2020-08-19] MEDS: CELEcoxib 200 mg Capsule PO ×2 (10:28→17:10)
[2020-08-19] MEDS: chlorhexidine gluconate 0.12% Btl 473 mL 30 ML MUCOUS MEM ×3 (10:32→21:28)
[2020-08-19 13:48] LABS: Partial Thromboplastin Time 66.8 SECONDS (23.9-36.7)
--- NOTE | 2020-08-19 14:14 | PC.SOCIAL ---
IMM Updated Updated pt on Pg 2 IMM. No questions voiced. Provided pt a copy. Signed, dated, & timed copy in chart.
--- NOTE | 2020-08-19 17:08 | PM.PN ---
Subjective Subjective: Interval history: No new clinical events overnight, continued on heparin gtt, Hgb remained stable No fever, chills, nausea or vomiting. Medications: Reviewed: Yes Vitals/I&O/Wt Last Vital Signs Temp 98.3 F 08/19/20 16:00 Pulse 75 08/19/20 16:00 Resp 18 08/19/20 16:00 BP 137/85 08/19/20 16:00 Pulse Ox 91 08/19/20 16:00 08/19/20 08/19/20 08/19/20 06:59 14:59 22:59 Intake Total 360 / 360 Balance 360 / 360 Physical Exam Narrative: EXAM NARRATIVE: Left hip incision clean and dry. Minimal thigh swelling Const: COMMON NORMALS: no acute distress, average body habitus, patient oriented x3, no limitations, healthy appearing, alert and well nourished GENERAL APPEARANCE: cooperative, comfortable, well kempt and well developed ORIENTATION/CONSCIOUSNESS: Yes awake, Yes oriented to person, Yes oriented to place and Yes oriented to time HENMT: COMMON NORMALS: normocephalic, external ears normal and Normal external nose present HEAD & SCALP: normal to inspection and normocephalic NOSE: Normal external nose present EXTERNAL EAR: Yes external ears normal MOUTH: Normal oral and palatal mucosa present THROAT: posterior oropharynx normal Eye: COMMON NORMALS: Equal, round and reactive pupils present and EOMs intact bilaterally GENERAL EYE: appearance normal, both eyes and all related structures PUPIL: Yes Equal, round and reactive pupils present Neck/C-Spine: COMMON NORMALS: full ROM, no lymphadenopathy, no meningeal signs and no JVD GENERAL: Yes normal visual inspection Chest: COMMONS NORMALS: normal inspection of the chest and normal palpation of entire chest wall Cardio: COMMON NORMALS: no JVD, regular rate, regular rhythm, S1 normal heart sound present, S2 normal heart sound present and Peripheral pulses 2+ throughout RATE: regular rate RHYTHM: regular rhythm HEART SOUNDS: S1 normal heart sound present and S2 normal heart sound present PERIPHERAL PULSES: Peripheral pulses 2+ throughout : COMMON NORMALS: Yes no CVA tenderness BLADDER/KIDNEY EXAM: Yes no CVA tenderness Back/Pelvis: COMMON NORMALS: no CVA tenderness, thoracic and lumbar spine normal to inspection, no thoracic nor lumbar tenderness and thoraco-lumbar ROM normal Extremity: COMMON NORMALS: normal to inspection, full ROM, capillary refill normal, no joint enlargement and no pedal edema GENERAL: Yes normal exam except as noted Neuro: COMMON NORMALS: patient oriented x3 SENSORIUM/ORIENTATION: Yes alert, Yes oriented to person, Yes oriented to place and Yes oriented to time MENINGEAL SIGNS: Yes no meningeal signs Psych: APPEARANCE: Yes well kempt Urinary Catheter Management^: Ray: Cath Placed During This Visit: yes, but has since been removed by the nurse Reason for Continuing Indwelling Catheter: Perioperative Use in Selected Surgeries Urinary Catheter Date of Insertion: 08/14/20 Urinary Catheter Time of Insertion: 16:30 Date Urinary Catheter Removed: 08/16/20 Time Urinary Catheter Discontinued: 07:48 Data : 08/19/20 00:52 08/19/20 00:52 A&P Assessment and plan (1) Fracture of femoral neck, left, closed: Status post nailing of left hip. Patient was able to ambulate with walker. Home health care is recommended vs SNF given new respiratory issue. Status: Acute (2) Hypothyroid: Continue home dose of levothyroxine Status: Acute (3) Anxiety: . Status: Chronic (4) Essential (primary) hypertension: Blood pressure stable continue home dose of Diovan Status: Chronic (5) Nausea & vomiting: Resolved. Status: Acute (6) Bilateral pulmonary embolism: Will transition from heparin to eliquis however given recent surgery will start with 5 mg PO BID Holding asa Repeat labs in am Bleeding/fall precautions Status: Acute Attestations Medical Necessity Statement*: Will require additional day in hospital for monitoring with new medication in addition to possible placement arrangment. Time Spent in Patient Care: Greater than 35 minutes (>than 50% of time spent in counselling and/or direct pt care on unit). Coding Level of Care Code Acute Adjunct Art History Instructor for Chg Fwd Diagnoses Fracture of femoral neck, left, closed S72.002A Hypothyroid E03.9 Anxiety F41.9 Essential (primary) hypertension I10 Nausea & vomiting R11.2 Bilateral pulmonary embolism I26.99
[2020-08-19] MEDS: calcium carbonate 500 mg Chew Tablet 1000 MG PO (17:44)
[2020-08-19 19:58] LABS: Partial Thromboplastin Time 40.9 SECONDS (23.9-36.7)
[2020-08-19] MEDS: apixaban 5 mg Tablet PO (21:28)
[2020-08-20] VITALS (7 sets, daily range): BP systolic 126–134; BP diastolic 70–80; PULSE 75–86; RESP 13–19; TEMP 36.4–36.7; O2SAT 82–98
[2020-08-20] MEDS: zolpidem 5 mg Tablet PO (00:19)
--- NOTE | 2020-08-20 00:43 | PC.NURSE ---
Patients oxygen saturation 99% at start of shift. Oxygen turned down from 2 to 1L NC. Patient got up to BSC with assistance of this nurse and oxygen desat to 83%. Patient recovered oxygen saturation back up to 94% on 1L.
[2020-08-20 07:07] LABS: Basophils % 0.7 %; Eosinophils # 0.3 10^3/uL (0.0-0.8); Eosinophils % 6.3 %; Hematocrit 28.1 % (37.0-47.0); Hemoglobin 9.2 g/dL (11.5-15.3); Lymphocytes # 0.8 10^3/uL (0.8-4.8); Lymphocytes % 13.9 %; Mean Corpuscular HGB Conc 32.7 g/dL (30.0-36.0); Mean Corpuscular Volume 91.5 fL (81-99); Mean Platelet Volume 11.4 fL (7.4-10.4); Monocytes # 0.6 10^3/uL (0.2-0.9); Monocytes % 11.3 %; Neutrophils # 3.55 10^3/uL (1.8-7.7); Neutrophils % 66.1 %; Nucleated Red Blood Cells % 0 %; Platelet Count 232 10^3/cmm (130-400); Red Blood Count 3.07 10^6/uL (4.1-5.3); Red Cell Distribution Width 13.2 % (12.1-15.1); White Blood Count 5.4 10^3/uL (4.0-10.0)
[2020-08-20 07:23] LABS: Anion Gap 10.9 (5-19); Blood Urea Nitrogen 21 mg/dL (8-23); Calcium 8.3 mg/dL (8.5-10.5); Carbon Dioxide 26 mmol/L (22-29); Chloride 107 mmol/L (98-107); Glucose 99 mg/dL (65-115); Osmolality Calculated 293 mOsm/kg (285-295); Potassium 3.9 mmol/L (3.5-5.1); Sodium 140 mmol/L (136-145)
[2020-08-20 07:29] LABS: Procalcitonin 0.13 ng/mL (0-0.5)
[2020-08-20] MEDS: losartan 50 mg Tablet 100 MG PO (10:03)
[2020-08-20] MEDS: hyDROXYzine 25 mg Capsule PO (10:04)
[2020-08-20] MEDS: CELEcoxib 200 mg Capsule PO (10:04)
[2020-08-20] MEDS: docusate sodium 100 mg Capsule PO (10:04)
[2020-08-20] MEDS: apixaban 5 mg Tablet PO (10:04)
[2020-08-20] MEDS: levothyroxine 50 mcg Tablet PO (10:04)
[2020-08-20] MEDS: fluoxetine 20 mg Capsule PO (10:04)
[2020-08-20] MEDS: chlorhexidine gluconate 0.12% Btl 473 mL 30 ML MUCOUS MEM ×2 (10:05→13:33)
--- NOTE | 2020-08-20 13:42 | P.DS_ITS ---
Discharge Providers Date of Admission: 08/14/20 16:08 Date of Discharge: August 20, 2020 Attending Provider at Admission: Matt Baum DO Attending Provider at Discharge: Jono Bello Primary Care Provider: HASMUKH Hernandez Diagnoses at Discharge Discharge Diagnosis (1) Fracture of femoral neck, left, closed: Status: Acute (2) Hypothyroid: Status: Acute (3) Anxiety: Status: Chronic (4) Essential (primary) hypertension: Status: Chronic (5) Nausea & vomiting: Status: Resolved (6) Bilateral pulmonary embolism: Status: Acute Reason for Visit Reason for Visit: GROUND LEVEL FALL Hospital Course Hospital Course 79 year old female presents after fall on a child's toy landing on her left hip. She was unable to walk and sought emergency care. She was found to have a left impacted hip fracture at the femoral neck. Patient was seen by orthopedic surgery and taken to OR. Post op course was complicated with respiratory distress. CTA of chest was performed which showed acute pulmonary embolism. She was started on IV heparin gtt which was transitioned to xarelto at the time of discharge. Patient was requiring oxygen which was weaned. Did not have any episode of bleeding. Hemoglobin remained stable. Anticoagulation plan was d/w ortho on day of discharge. Outpatient follow up was arranged with orthopedic surgery and pulmonary medcine. Physical Exam Narrative: EXAM NARRATIVE: Left hip incision clean and dry. No bleeding Const: COMMON NORMALS: no acute distress, average body habitus, patient oriented x3, no limitations, healthy appearing, alert and well nourished GENERAL APPEARANCE: cooperative, comfortable, well kempt and well developed ORIENTATION/CONSCIOUSNESS: Yes awake, Yes oriented to person, Yes oriented to place and Yes oriented to time HENMT: COMMON NORMALS: normocephalic, external ears normal and Normal external nose present HEAD & SCALP: normal to inspection and normocephalic NOSE: Normal external nose present EXTERNAL EAR: Yes external ears normal MOUTH: Normal oral and palatal mucosa present THROAT: posterior oropharynx normal Eye: COMMON NORMALS: Equal, round and reactive pupils present and EOMs intact bilaterally GENERAL EYE: appearance normal, both eyes and all related struc tures PUPIL: Yes Equal, round and reactive pupils present Neck/C-Spine: COMMON NORMALS: full ROM, no lymphadenopathy, no meningeal signs and no JVD GENERAL: Yes normal visual inspection Chest: COMMONS NORMALS: normal inspection of the chest and normal palpation of entire chest wall Cardio: COMMON NORMALS: no JVD, regular rate, regular rhythm, S1 normal heart sound present, S2 normal heart sound present and Peripheral pulses 2+ throughout RATE: regular rate RHYTHM: regular rhythm HEART SOUNDS: S1 normal heart sound present and S2 normal heart sound present PERIPHERAL PULSES: Peripheral pulses 2+ throughout : COMMON NORMALS: Yes no CVA tenderness BLADDER/KIDNEY EXAM: Yes no CVA tenderness Back/Pelvis: COMMON NORMALS: no CVA tenderness, thoracic and lumbar spine normal to inspection, no thoracic nor lumbar tenderness and thoraco-lumbar ROM normal Extremity: COMMON NORMALS: normal to inspection, full ROM, capillary refill normal, no joint enlargement and no pedal edema GENERAL: Yes normal exam except as noted Neuro: COMMON NORMALS: patient oriented x3 SENSORIUM/ORIENTATION: Yes alert, Yes oriented to person, Yes oriented to place and Yes oriented to time MENINGEAL SIGNS: Yes no meningeal signs Psych: APPEARANCE: Yes well kempt Urinary Catheter Management^: Ray: Cath Placed During This Visit: yes, but has since been removed by the nurse Reason for Continuing Indwelling Catheter: Perioperative Use in Selected Surgeries Urinary Catheter Date of Insertion: 08/14/20 Urinary Catheter Time of Insertion: 16:30 Date Urinary Catheter Removed: 08/16/20 Time Urinary Catheter Discontinued: 07:48 Discharge Data Data Completed and Pending: Completed Studies During Hospitalization Category Date Time Status CT angio chest PE protcl [id number] Rout ine Cat Scan 08/16/20 14:46 Completed XR chest 1V richy ble [id number] Urgent Exams 08/14/20 14:03 Completed XR hip LT 1V wo/w pel [id number] Routine Exams 08/15/20 14:13 Completed XR hip LT 2-3V wo /w pel* [id number] Stat Exams 08/14/20 14:03 Completed Pending at discharge Category Date Time Status Basic Metabolic P ellis AM LABS Lab 08/21/20 04:00 Ordered Basic Metabolic P ellis AM LABS Lab 08/22/20 04:00 Ordered CV echo complete* [id number] Routine Ultrasound 08/20/20 20:25 Ordered Labs from last 24 hours 08/20/20 08/20/20 08/19/20 06:29 06:29 19:33 WBC 5.4 RBC 3.07 L Hgb 9.2 L Hct 28.1 L MCV 91.5 MCH 30.0 MCHC 32.7 RDW 13.2 Plt Count 232 MPV 11.4 H Neut % (Auto) 66.1 Lymph % (Auto) 13.9 Trimble % (Auto) 11.3 Eos % (Auto) 6.3 Baso % (Auto) 0.7 Neut # (Auto) 3.55 Lymph # (Auto) 0.8 Trimble # (Auto) 0.6 Eos # (Auto) 0.3 Baso # (Auto) 0.0 Nucleated RBC % (a uto) 0 Nucleated RBCs # 0.0 APTT 40.9 H Sodium 140 Potassium 3.9 Chloride 107 Carbon Dioxide 26 Anion Gap 10.9 BUN 21 Creatinine 0.9 GFR Calculation Not Reportable Glucose 99 Calculated Osmolal ity 293 Calcium 8.3 L Procalcitonin 0.13 08/19/20 13:28 WBC RBC Hgb Hct MCV MCH MCHC RDW Plt Count MPV Neut % (Auto) Lymph % (Auto) Trimble % (Auto) Eos % (Auto) Baso % (Auto) Neut # (Auto) Lymph # (Auto) Trimble # (Auto) Eos # (Auto) Baso # (Auto) Nucleated RBC % (a uto) Nucleated RBCs # APTT 66.8 H Sodium Potassium Chloride Carbon Dioxide Anion Gap BUN Creatinine GFR Calculation Glucose Calculated Osmolal ity Calcium Procalcitonin Vitals: Last Vital Signs Temp 98 F 08/20/20 11:54 Pulse 75 08/20/20 11:54 Resp 13 08/20/20 11:54 BP 130/70 08/20/20 11:54 Pulse Ox 94 08/20/20 11:54 Discharge Plan Discharge Patient Disposition: Home Condition: Stable Prescriptions: Continued alprazolam [Xanax] 0.25 mg tablet 0.125 mg PO BEDTIME PRN (Reason: Anxiety) RF: 0 Xlear 2 spray intranasal TID Qty: 45 RF: 0 clonidine HCl 0.1 mg tablet 0.1 mg PO BID PRN (Reason: hypertensive emergency) Qty: 60 RF: 1 loratadine 10 mg Tablet 10 mg PO DAILY PRN (Reason: Allergy Symptoms) RF: 0 levothyroxine 50 mcg tablet 50 mcg PO DAILY@1030 RF: 0 magnesium citrate Solution 150 ml PO DAILY@1030 RF: 0 Prozac 20 mg capsule 20 mg PO DAILY@1030 RF: 0 Diovan HCT 320-25 mg tablet 1 tab PO DAILY@1030 RF: 0 Discontinued meloxicam [Mobic] 7.5 mg tablet 7.5 mg PO DAILY@1030 RF: 0 No Action (DME) E0184 DRY PRESSURE MATTRESS See Rx Instructions .Route .MEDSUPPLY Qty: 1 RF: 0 (DME) Hospital bed E0266 without mattress See Rx Instructions .Route .MEDSUPPLY Qty: 1 RF: 0 Xarelto 20 mg tablet 20 mg PO DAILY Qty: 30 RF: 5 Discharge Orders: Discharge Order (Routine); Ordered 08/20/20 Ordered By: Jono Bello Other Ambulatory Orders: DME: Oxygen (Order) Location: None Selected Ordered By: Jono Bello DME: Walker (Order) Location: None Selected Ordered By: Jono Bello Referrals: Ruiz Tesfaye FNP-C [Primary Care Provider] - 08/23/20 3:40 pm Neri Mike MD [Physician] - 09/17/20 9:15 am Ayush Elkins MD [Physician] - 08/29/20 10:00 am Discharge Diet: Advance as tolerated Discharge Activity: Increase activity as tolerated Patient Instructions: Apixaban (By mouth), Pulmonary Embolism (DC), Open Reduction and Internal Fixation of a Hip Fracture (DC), Opioid Safety, Using Oxygen at Home Activity Restrictions/Additional Instructions: Fall precautions Discharge Attestations Time Spent in Discharge Care*: greater than 30 min Specific Discharge Activities: educating patient, educating and/or supporting family/caregiver, discussing with pcp/other providers, discussing with pillowcase maker/social workers/dc planners, documenting/other paperwork and evaluating patient/reviewing data Status at Discharge: Cognitive status at discharge: cognitively intact , Behavioral status at discharge: cooperative , Functional status at discharge: other assisted ambulation Overall status at discharge: patient is progressing back to baseline Quality Metrics Clinical Quality Measures During this hospital stay, did patient experience: VTE Contraindication to Overlap Therapy: Overlap treatment not indicated VTE Discharge Education: Education about anticoagulant therapy/Care Notes given Coding Level of Care Code Acute Chg FW DC note Diagnoses Fracture of femoral neck, left, closed S72.002A Hypothyroid E03.9 Anxiety F41.9 Essential (primary) hypertension I10 Nausea & vomiting R11.2 Bilateral pulmonary embolism I26.99
--- NOTE | 2020-08-20 20:25 | USCV_ITS ---
Kanika Lane Age: 79 Gender: F : 1940 Exam Date: 08/20/2020 15:34 Ordering Phys: Jono Bello MD Technologist: EJ POLK Exam Location: [facility] Indication: PE BP: / HR: 81 Rhythm: Sinus Technical Quality: Adequate MEASUREMENTS (Male / Female) Normal Values 2D ECHO LV Diastolic Diameter PLAX 3.3 cm 4.2 - 5.9 / 3.9 - 5.3 cm LV Systolic Diameter PLAX 2.9 cm LV Chamber Size 3.4 cm IVS Diastolic Thickness 1.3 cm 0.6 - 1.0 / 0.6 - 0.9 cm IVS Systolic Thickness 1.3 cm LVPW Diastolic Thickness 1.3 cm 0.6 - 1.0 / 0.6 - 0.9 cm LVPW Systolic Thickness 1.9 cm RV Chamber Size 2.6 cm LVOT Diameter 2.0 cm LV Ejection Fraction 2D Teich 27.0 % LV Ejection Fraction MOD 2C 58.1 % LV Ejection Fraction 2C AL 58.0 % LA Diameter 2.3 cm LA Width 3.5 cm LA Height 2.7 cm RA Width 3.0 cm RA Height 2.8 cm Aorta at Sinotubular Diameter 3.1 cm M-MODE LV Diastolic Diameter MM 4.8 cm 4.2 - 5.9 / 3.9 - 5.3 cm LV Systolic Diameter MM 3.0 cm LV Ejection Fraction MM Teich 67.3 % IVS Diastolic Thickness MM 1.3 cm 0.6 - 1.0 / 0.6 - 0.9 cm IVS Systolic Thickness MM 1.8 cm LVPW Diastolic Thickness MM 0.9 cm 0.6 - 1.0 / 0.6 - 0.9 cm LVPW Systolic Thickness MM 1.6 cm RV Diastolic Diameter MM 1.6 cm Aortic Annulus Diameter 3.5 cm LA Ao Ratio MM 0.8 MV E Point Septal Separation 0.4 cm DOPPLER AV Peak Velocity 173.0 cm/s LVOT Peak Velocity 147.0 cm/s AV Area Cont Eq vti 3.1 cm squared AV Area Cont Eq pk 2.6 cm squared MV Area PHT 4.0 cm squared Mitral E to A Ratio 1.0 MV E' Velocity 65.0 cm/s Mitral E to MV E' Ratio 10.9 Mitral E to LV E' Lateral Ratio 10.2 Mitral E to LV E' Septal Ratio 11.7 TR Peak Velocity 351.0 cm/s TR Peak Gradient 49.3 mmHg TR Mean Velocity 254.8 cm/s TR Mean Gradient 28.4 mmHg TR Velocity Time Integral 109.0 cm Right Atrial Pressure 8.0 mmHg Pulmonary Artery Systolic Pressu 57.3 mmHg PV Peak Velocity 83.0 cm/s RV Acceleration Time 0.2 s RV Ejection Time 0.4 s RV AcT/ET 0.4 FINDINGS Left Ventricle Normal left ventricular cavity size. Normal left ventricular systolic function. Left ventricular ejection fraction is estimated at 55 %. Grade I/IV diastolic dysfunction (abnormal relaxation filling pattern), normal to mildly elevated filling pressures. Right Ventricle The right ventricle is normal in size and function. RVSP could not be calculated due to incomplete tricuspid regurgitation velocity profile. Right Atrium The right atrium is normal in size. Left Atrium The left atrium is normal in size. Mitral Valve Moderately thickened mitral valve. Moderate mitral annular calcification. Aortic Valve Structurally normal aortic valve without significant sclerosis or stenosis. There is no aortic regurgitation. Tricuspid Valve Structurally normal tricuspid valve without significant stenosis or regurgitation. Pulmonic Valve Structurally normal pulmonic valve without significant stenosis. There is no pulmonic regurgitation. Pericardium Normal pericardium without effusion. Aorta Normal ascending aorta dimension. CONCLUSIONS 1-Normal left ventricular cavity size. Normal left ventricular systolic function. Left ventricular ejection fraction is estimated at 55 %. Grade I/IV diastolic dysfunction (abnormal relaxation filling pattern), normal to mildly elevated filling pressures. 2-Moderately thickened mitral valve. Moderate mitral annular calcification. 3-There is no pericardial effusion. 4-The right ventricle is normal in size and function. RVSP could not be calculated due to incomplete tricuspid regurgitation velocity profile. 5-Right atrial pressure is around 5 mm of mercury. 6-There are no prior echocardiogram studies to compare. Ericka Pablo MD (Electronically Signed) Final Date: 20 August 2020 20:37 S
--- NOTE | 2020-09-20 14:00 | PC.SOCIAL ---
Received call from [facility] pharmacy about pt running out of Eliquis and copay on insurance will be $400. Called [facility] office and they have sent in Xarelto on 08/27/2020 to [facility] pharmacy. Called patient and she does have this and is only $11. Updated [facility] pharmacy. Abraham
== END 2020-08-20 19:05 | disposition home health service (06) | DRG 522 ==
LOC: ER 16:10 → MEDSURG 17:23
PROVIDERS: Orthopaedic Surgery; Admitting Provider Internal Medicine; Emergency Provider Family Medicine; PCP Nurse Practitioner; Visit Provider Hospitalist
PROC: 0SRS0JA Replacement of Left Hip Joint, Femoral Surface with Synthetic Substitute, Uncemented, Open Approach (ICD-10-PCS; CPT 27125; principal; 2020-08-15 12:00)
DX: S72.002A Fracture of unspecified part of neck of left femur, initial encounter for closed fracture (principal); I26.99 Other pulmonary embolism without acute cor pulmonale; W01.0XXA Fall on same level from slipping, tripping and stumbling without subsequent striking against object, initial encounter; Z86.16 Personal history of COVID-19; F41.9 Anxiety disorder, unspecified; M51.36 Other intervertebral disc degeneration, lumbar region; I10 Essential (primary) hypertension; Z87.891 Personal history of nicotine dependence; E03.9 Hypothyroidism, unspecified; M16.12 Unilateral primary osteoarthritis, left hip
CPT/HCPCS: 36415; 51702; 71045; 71275; 72170; 73501; 73502; 80048; 80053; 81003; 84145; 85025; 85610; 85730; 93005; 93306; 96365; 96374; 96375; 97110; 97116; 97161; 97165; 97530; 97535; 99285; C1776; C9113; J0690; J1170; J1580; J1644; J2270; J2405; J2704; J3010; J3535; J7030; Q9967

== ENCOUNTER → 2020-10-09 09:38 | Outpatient (BNVA) | payer MEDICARE, OTHER, SELFPAY | PROVIDERS: PCP Nurse Practitioner; Visit Provider Orthopaedic Surgery | DX: Z48.89 Encounter for other specified surgical aftercare (principal); I10 Essential (primary) hypertension; E03.9 Hypothyroidism, unspecified; Z79.899 Other long term (current) drug therapy | CPT/HCPCS: 73502; 80053; 80061; 82607; 84443; 85025 ==

== ENCOUNTER → 2020-12-20 11:37 | Outpatient (BNVA) | payer MEDICARE, OTHER, SELFPAY | PROVIDERS: PCP Nurse Practitioner; Visit Provider Nurse Practitioner | DX: I10 Essential (primary) hypertension (principal); E55.9 Vitamin D deficiency, unspecified | CPT/HCPCS: 80053; 80061; 82306; 82607; 84443; 85025 ==

== ENCOUNTER 2021-01-18 06:00 | Outpatient (RCR) | payer MEDICARE, OTHER, SELFPAY | END 2021-01-29 23:59 | disposition home or self-care (01) | LOC: SPT 06:00 | PROVIDERS: PCP Nurse Practitioner; Referring Provider Orthopaedic Surgery; Visit Provider Orthopaedic Surgery | DX: Z47.1 Aftercare following joint replacement surgery (principal); Z96.642 Presence of left artificial hip joint | CPT/HCPCS: 97110; 97112; 97116; 97161 ==

== ENCOUNTER 2021-01-30 06:00 | Outpatient (RCR) | payer MEDICARE, OTHER, SELFPAY | END 2021-03-01 23:59 | disposition home or self-care (01) | LOC: SPT 06:00 | PROVIDERS: PCP Nurse Practitioner; Referring Provider Orthopaedic Surgery; Visit Provider Orthopaedic Surgery | DX: Z96.642 Presence of left artificial hip joint (principal) | CPT/HCPCS: 97110; 97112 ==

== ENCOUNTER 2021-03-02 06:00 | Outpatient (RCR) | payer MEDICARE, OTHER, SELFPAY | END 2021-03-05 23:59 | disposition home or self-care (01) | LOC: SPT 06:00 | PROVIDERS: PCP Nurse Practitioner; Referring Provider Orthopaedic Surgery; Visit Provider Orthopaedic Surgery | DX: Z47.1 Aftercare following joint replacement surgery (principal); Z96.642 Presence of left artificial hip joint | CPT/HCPCS: 97110 ==

== ENCOUNTER → 2021-05-30 13:44 | Outpatient (BNVA) | payer MEDICARE, OTHER, SELFPAY | PROVIDERS: PCP Nurse Practitioner; Visit Provider Nurse Practitioner | DX: E53.8 Deficiency of other specified B group vitamins (principal); E55.9 Vitamin D deficiency, unspecified; I10 Essential (primary) hypertension; E04.1 Nontoxic single thyroid nodule; R25.1 Tremor, unspecified; F41.9 Anxiety disorder, unspecified; G47.00 Insomnia, unspecified | CPT/HCPCS: 80053; 80061; 82306; 82607; 84443 ==

== ENCOUNTER → 2021-09-06 12:11 | Outpatient (BNVA) | payer MEDICARE, OTHER, SELFPAY | PROVIDERS: PCP Nurse Practitioner; Visit Provider Nurse Practitioner | DX: E04.1 Nontoxic single thyroid nodule (principal); I10 Essential (primary) hypertension; F41.9 Anxiety disorder, unspecified | CPT/HCPCS: 80053; 84443 ==

== ENCOUNTER → 2022-02-19 16:15 | Outpatient (BNVA) | payer MEDICARE, OTHER, SELFPAY | PROVIDERS: PCP Nurse Practitioner; Visit Provider Nurse Practitioner | DX: E66.9 Obesity, unspecified (principal); F41.9 Anxiety disorder, unspecified; M50.30 Other cervical disc degeneration, unspecified cervical region; G47.00 Insomnia, unspecified; I10 Essential (primary) hypertension; E04.1 Nontoxic single thyroid nodule | CPT/HCPCS: 80053; 84443 ==

== ENCOUNTER 2022-06-25 11:35 | Outpatient (CLI) | payer MEDICARE, BC, SELFPAY ==
--- NOTE | 2022-06-25 11:49 | MM_ITS ---
WS: [id number] BILATERAL SCREENING DIGITAL TOMOSYNTHESIS MAMMOGRAM WITH CAD HISTORY: Z12.39 - Encounter for other screening for malignant neoplasm... COMPARISON: 10/23/2014, 10/10/2014 Bilateral CC and MLO views with tomosynthesis and synthetic mammography submitted. Computer aided det ection analyzed. Breast composition: The breasts are heterogeneously dense, which may obscure small masses. No suspici ous masses, microcalcifications or architectural distortion. Asymmetry in the central RIGHT breast is similar to the prior mammogram of 2014 measuring approximately 9 mm and slightly lobulated. No incre ase in size. MM/[place] [id number] IMPRESSION: BI-RADS: 2-Benign FOLLOW UP: 1 Year Follow-up
== END 2022-06-25 11:36 | disposition home or self-care (01) ==
LOC: RAD 11:45
PROVIDERS: PCP Nurse Practitioner; Visit Provider Nurse Practitioner
DX: Z12.31 Encounter for screening mammogram for malignant neoplasm of breast (principal); E04.1 Nontoxic single thyroid nodule; E78.2 Mixed hyperlipidemia
CPT/HCPCS: 77063; 77067; 80053; 80061; 84443

== ENCOUNTER → 2022-11-10 16:27 | Outpatient (BNVA) | payer MEDICARE, BC, SELFPAY | PROVIDERS: PCP Nurse Practitioner; Visit Provider Nurse Practitioner | DX: E53.8 Deficiency of other specified B group vitamins (principal); E04.1 Nontoxic single thyroid nodule; E78.2 Mixed hyperlipidemia | CPT/HCPCS: 80053; 80061; 82607; 84443 ==

== ENCOUNTER → 2023-04-21 11:49 | Outpatient (BNVA) | payer MEDICARE, SELFPAY | PROVIDERS: PCP Nurse Practitioner; Visit Provider Nurse Practitioner | DX: E04.1 Nontoxic single thyroid nodule; I10 Essential (primary) hypertension; E78.2 Mixed hyperlipidemia | CPT/HCPCS: 80053; 80061; 84443; 85025 ==

== ENCOUNTER → 2023-09-23 11:34 | Outpatient (BNVA) | payer MEDICARE, SELFPAY | PROVIDERS: PCP Nurse Practitioner; Visit Provider Nurse Practitioner | DX: M51.36 Other intervertebral disc degeneration, lumbar region (principal); E78.2 Mixed hyperlipidemia; M50.30 Other cervical disc degeneration, unspecified cervical region; E04.1 Nontoxic single thyroid nodule; K64.4 Residual hemorrhoidal skin tags; J30.2 Other seasonal allergic rhinitis; I10 Essential (primary) hypertension | CPT/HCPCS: 80053; 80061; 84443 ==

== ENCOUNTER → 2024-01-26 16:38 | Outpatient (BNVA) | payer MEDICARE, SELFPAY | PROVIDERS: PCP Nurse Practitioner; Visit Provider Nurse Practitioner | DX: E55.9 Vitamin D deficiency, unspecified (principal); I10 Essential (primary) hypertension; E78.2 Mixed hyperlipidemia; E04.1 Nontoxic single thyroid nodule | CPT/HCPCS: 80053; 80061; 82306; 84443 ==

== ENCOUNTER → 2024-07-05 11:45 | Outpatient (BNVA) | payer MEDICARE, SELFPAY | PROVIDERS: PCP Nurse Practitioner; Visit Provider Nurse Practitioner | DX: I10 Essential (primary) hypertension (principal); E04.1 Nontoxic single thyroid nodule | CPT/HCPCS: 80053; 80061; 84443; 85025 ==

== ENCOUNTER → 2024-08-02 15:44 | Outpatient (BNVA) | payer MEDICARE, SELFPAY | PROVIDERS: PCP Nurse Practitioner; Visit Provider Nurse Practitioner | DX: I10 Essential (primary) hypertension (principal); F41.9 Anxiety disorder, unspecified | CPT/HCPCS: 80053; 85025 ==

== ENCOUNTER 2024-11-25 14:20 | Outpatient (CLI) | payer MEDICARE, SELFPAY ==
[2024-11-25 14:37] LABS: Hematocrit 38.2 % (36-47); Hemoglobin 12.40 g/dL (11.27-16.99); Mean Corpuscular HGB Conc 32.5 g/dL (30-55); Mean Corpuscular Hemoglobin 29.5 pg (27-33); Mean Corpuscular Volume 91.0 fl (85-98); Nucleated Red Blood Cells % 0 %; Platelet Count 245 10^3/cmm (157-399); Red Blood Count 4.20 10^6/uL (3.85-5.65); White Blood Count 7.43 10^3/uL (3.29-11.43)
[2024-11-25 15:28] LABS: Alanine Aminotransferase 8 U/L (0-33); Albumin Level 4.0 g/dL (3.5-5.2); Alkaline Phosphatase 108 U/L (35-105); Anion Gap 14.6 (5-19); Aspartate Amino Transferase 15 U/L (0-32); Blood Urea Nitrogen 26 mg/dL (8-23); Calcium 9.4 mg/dL (8.5-10.5); Carbon Dioxide 24 mmol/L (22-29); Chloride 102 mmol/L (98-107); Globulin 2.7 g/dL (1.3-4.6); Glucose 87 mg/dL (65-115); Osmolality Calculated 286 mOsm/kg (285-295); Potassium 4.6 mmol/L (3.5-5.1); Sodium 136 mmol/L (136-145); Thyroid Stimulating Hormone 2.59 uIU/mL (0.27-4.20); Total Protein 6.7 g/dL (6.6-8.7)
[2024-11-25 15:52] LABS: Vitamin B12 > 2000 pg/mL (232-1245)
== END 2024-11-25 14:21 | disposition home or self-care (01) ==
PROVIDERS: PCP Nurse Practitioner; Visit Provider Nurse Practitioner
DX: I10 Essential (primary) hypertension (principal); E53.8 Deficiency of other specified B group vitamins; E04.1 Nontoxic single thyroid nodule
CPT/HCPCS: 80053; 82607; 84443; 85025

== ENCOUNTER 2024-12-25 13:01 | Observation (INO) | payer MEDICARE, SELFPAY ==
[2024-12-25] VITALS (47 sets, daily range): BP systolic 60–138; BP diastolic 42–106; PULSE 88–124; RESP 7–26; TEMP 35.7–36.7; O2SAT 88–100; BMI 25.8; BMI 27.1
--- NOTE | 2024-12-25 13:04 | XRR_ITS ---
PROCEDURE INFORMATION: Exam: XR Chest Exam date and time: 12/25/2024 1:43 PM Age: 84 years old Clinical indication: Shortness of breath; Additional info: SOB TECHNIQUE: Imaging protocol: Radiologic exam of the chest. Views: 1 view. COMPARISON: CT angio chest PE protcl [id number] 08/16/2020 3:41 PM FINDINGS: Lungs: Unremarkable. No consolidation. Pleural spaces: No pleural effusion. No pneumothorax. Heart/Mediastinum: No cardiomegaly. Moderate hiatal hernia. Bones/joints: Unremarkable. XR/XR chest 1V portable [id number] IMPRESSION: No acute finding.
--- OUTSIDE RECORDS SUMMARY | 2024-12-25 13:07 | XMS_ITS | Encounter Summary ---
Author Organization [facility] Address [address] [place] [address] Care Team Providers Care Life Sciences Teacher Name Role Phone Ruiz Tesfaye NP Primary Care Provider [phone]- [phone] Reason for Referral * Outpatient Services (Routine) - Closed Specialty Diagnoses / Procedures Referred By Contac t Referred To Contact Diagnoses Other screening mammogram Procedures MAMMO DIGITAL SCREEN BILAT Roberto Carlos Correa MD Phone: tel: fax: [facility] Pre-Registration [place] CALL TO MAKE APPOINTMENT ONLY [address] [place] [address] Phone: tel: fax: Referral ID Status Reason Start Date Expiration Date Visits Re quested Visits Authorized [id number] Closed 09/26/2014 10/27/2015 1 1 Encounter Details Date Type Department Care Team (Latest Contact Info) Description 09/26/2014 Ancillary Orders [facility] Pre-Registration [place] CALL TO MAKE APPOINTMENT ONLY [address] [place] [address] Roberto Carlos Correa MD [address] [facility] [address] [place] [address] Other screening mammogram (Primary Dx) Social History Tobacco Use Types Packs/Day Years Used Date Smoking Tobacco: Never Smokeless Tobacco: Never Alcohol Use Standard Drinks/Week Comments No 0 (1 standard drink = 0.6 oz pur e alcohol) Comments No Sex and Gender Information Value Date Recorded Sex Assigned at Not on file Legal Sex Female 6:26 AM CORRECTIONAL CLASSIFICATION COUNSELOR Gender Identity Not on file Sexual Orientation Not on file 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 We do not have any prior exams on this patient. She says they were done 40 years ago and we have been unable to locate them. We really do not know when they were done or where they were done. There is average breast parenchymal density. No discrete abnormality is seen on the left. However, a technical repeat will be needed of the left craniocaudal view due to a large fold centrally extending laterally. On the right, there are calcifications in the upper outer quadrant and this will require further evaluation. There are also tissue asymmetries anteriorly on the right craniocaudal view and there are two areas on the right MLO view one just above the nipple line and one just at the nipple line. These areas on the right will require further evaluation. This digital mammogram was also analyzed by the Computer Aided Detection System (CAD), [employer], Version 8.3. CONCLUSION: I would recommend the patient return for right medial to lateral view and magnified views and I would recommend a technical repeat of the left craniocaudal view at no additional charge. BART/armand 0935 AM - uploaded from [employer]ribe - us Roberto Carlos Correa MD MAMMO ORDERABLES Final Res ult documented in this encounter Visit Diagnoses Diagnosis Other screening mammogram- Primary Other screening mammogram documented in this encounter Care Teams Life Sciences Teacher Relationship Specialty Start Date End Date Ruiz Tesfaye, OFFAL ROLLER [address] [place] [phone] PCP - General NURSE PRACTITIONER 12/20/19 documented as of this encounter
--- OUTSIDE RECORDS SUMMARY | 2024-12-25 13:07 | XMS_ITS | Clinical Summary ---
Author Organization [employer] [facility] Address [address] [place]: [place] [address] Care Team Providers Care Quantitative Strategy Analyst Name Role Phone Ruiz Tesfaye NP Primary Care Provider Allergies Active Allergy Reactions Criticality Noted Date Comments Codeine Nausea and Vomiting Low 07/08/2010 Penicillins Nausea and Vomiting,Weakness Low 2010 Medications hydrOXYzine HCL (ATARAX) 25 mg tablet Take 1 Tablet (25 mg) by mouth every 8 hours as needed for Anxiety, Insomnia or Itching. 60 Tablet 2 02/05/2016 Active atorvastatin (LIPITOR) 10 mg tablet Take 0.5 Tablet (5 mg) by mouth daily. 30 Tablet 11 02/05/2016 Active Active Problems Problem Noted Date Diagnosed Date Adenomatous colon polyp 12/30/2015 Anal spasm 11/13/2015 Hypothyroidism, no meds for now 03/16/2013 OA (osteoarthritis) of knee 12/29/2011 Insomnia 10/07/2010 Generalized anxiety disorder 07/08/2010 Skin rash 07/08/2010 Elevated BP 07/08/2010 Osteoarthritis 07/08/2010 Hemorrhoid 07/08/2010 yearly 07/15 Overview (06/28/2020): MAMMO in 6mo ~ 04/2015 Hyperlipidemia Family History Medical History Relation Name Comments Lung Cancer Father Heart Disease Maternal Grandfather Heart Disease Maternal Grandmother Cancer Mother leukemia Diabetes Paternal Grandfather Heart Disease Paternal Grandmother Breast Cancer Neg Hx negative respo nse- see media tab Relation Name Status Comments Father Maternal Grandfather Maternal Grandmother Mother Paternal Grandfather Paternal Grandmother Social History Tobacco Use Types Packs/Day Years Used Date Smoking Tobacco: Never Smokeless Tobacco: Never Alcohol Use Standard Drinks/Week Comments No 0 (1 standard drink = 0.6 oz pur e alcohol) Comments Unknown Sex and Gender Information Value Date Recorded Sex Assigned at Not on file Legal Sex Female 3:17 PM COSMETIC COUNSELOR Gender Identity Not on file Sexual Orientation Not on file Last Filed Vital Signs Vital Sign Reading Time Taken Comments Blood Pressure 122/78 02/05/2016 2:18 PM COSMETIC COUNSELOR Pulse 73 02/05/2016 2:18 PM COSMETIC COUNSELOR Temperature 36.3 C (97.3 F) 12/26/2015 12:28 PM CDT Respiratory Rate 16 02/05/2016 2:18 PM COSMETIC COUNSELOR Oxygen Saturation - - Inhaled Oxygen Concentration - - Weight 81.6 kg (180 lb) 02/05/2016 2:18 PM COSMETIC COUNSELOR Height 172.7 cm (5' 8 ) 02/05/2016 2:18 PM COSMETIC COUNSELOR Body Mass Index 27.37 02/05/2016 2:18 PM COSMETIC COUNSELOR Plan of Treatment Health Maintenance Due Date Last Done Comments DTAP/TDAP/TD VACCINES (1 - Tdap) 1961 PNEUMOCOCCAL VACCINE 50+ YEARS (1 of 1 - PCV) 11/27/18 93 ZOSTER VACCINE (1 of 2) 1992 OSTEOPOROSIS SCREENING 11/28/2007 RSV VACCINE (60+ or ) (1 - 1-dose 75+ series) 2017 INFLUENZA VACCINE (#1) 2024 COLORECTAL SCREENING Discontinued 12/26/2015 Colorectal Cancer Screening Discontinued FIT-DNA Q 3 years Discontinued FIT/FOBT Q 1 year Discontinued Flex Sig/CT Colonography Q 5 years Discontinued Care Teams Quantitative Strategy Analyst Relationship Specialty Start Date End Date Ruiz Tesfaye NP [address] [place] [phone] PCP - General NURSE PRACTITIONER 12/20/19
--- OUTSIDE RECORDS SUMMARY | 2024-12-25 13:07 | XMS_ITS | Encounter Summary ---
Author Organization [facility] Address [address] [place] [address] Care Team Providers Care Glass Technologist Name Role Phone Ruiz Tesfaye CUT OFF SAWYER LOG Primary Care Provider Encounter Details Date Type Department Care Team (Latest Contact Info) Description 01/30/2004 Outpatient [facility] Oral and Maxillo Surgery[address] [place] [address] Abraham Llanos, PhD NO ADDRESS ON FILE JOINT PAIN-JOINT NEC (Primary Dx) Social History Tobacco Use Types Packs/Day Years Used Date Smoking Tobacco: Never Assessed Comments Unknown Sex and Gender Information Value Date Recorded Sex Assigned at Not on file Legal Sex Female 6:26 AM INTENSIVE CARE NURSE Gender Identity Not on file Sexual Orientation Not on file documented as of this encounter Plan of Treatment Not on file documented as of this encounter Visit Diagnoses Diagnosis Pain in joint, other specified sites- Primary documented in this encounter Care Teams Glass Technologist Relationship Specialty Start Date End Date Ruiz Tesfaye NP [address] [place] [phone] PCP - General NURSE PRACTITIONER 12/20/19 documented as of this encounter
--- OUTSIDE RECORDS SUMMARY | 2024-12-25 13:07 | XMS_ITS | Encounter Summary ---
Author Organization [facility] Address [address] [place] [address] Care Team Providers Care Box Attacher Name Role Phone Ruiz Tesfaye NP Primary Care Provider Encounter Details Date Type Department Care Team (Late st Contact Info) Description 03/19/[address] [facility] Dermatology- 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 (Primary Dx) Social History Tobacco Use Types Packs/Day Years Used Date Smoking Tobacco: Never Assessed Comments Unknown Sex and Gender Information Value Date Recorded Sex Assigned at Not on file Legal Sex Female 6:26 AM HEALTH PROMOTION MANAGER Gender Identity Not on file Sexual Orientation Not on file documented as of this encounter Plan of Treatment Not on file documented as of this encounter Visit Diagnoses Diagnosis Other and unspecified malignant neoplasm of skin of other and unspecified parts of face- Primary documented in this encounter Care Teams Box Attacher Relationship Specialty Start Date End Date Ruiz Tesfaye NP [address] [place] [phone] PCP - General NURSE PRACTITIONER 12/20/19 documented as of this encounter
--- OUTSIDE RECORDS SUMMARY | 2024-12-25 13:07 | XMS_ITS | Encounter Summary ---
Author Organization [facility] Address [address] [place] [address] Care Team Providers Care Public Works Laborer Name Role Phone Ruiz Tesfaye RENTAL COORDINATOR Primary Care Provider [phone] Encounter Details Date Type Department Care Team (Late st Contact Info) Description 05/09/2005 Outpatient Historical [facility] Dermatology- [address] [place] [address] Jayro Bynum MD [address] [place] [address] Contact Dermatitis and Other Eczema, due to Unspecified Cause (Primary Dx) Social History Tobacco Use Types Packs/Day Years Used Date Smoking Tobacco: Never Assessed Comments Unknown Sex and Gender Information Value Date Recorded Sex Assigned at Not on file Legal Sex Female 6:26 AM DAIRY FARMER Gender Identity Not on file Sexual Orientation Not on file documented as of this encounter Plan of Treatment Not on file documented as of this encounter Visit Diagnoses Diagnosis Contact dermatitis and other eczema, due to unspecified cause- Primary documented in this encounter Care Teams Public Works Laborer Relationship Specialty Start Date End Date Ruiz Tesfaye NP [address] [place] [phone] PCP - General NURSE PRACTITIONER 12/20/19 documented as of this encounter
--- OUTSIDE RECORDS SUMMARY | 2024-12-25 13:07 | XMS_ITS | Clinical Summary ---
Author Organization [facility] Address [address] [facility] [place] [address] Care Team Providers Care Automatic Mounter Name Role Phone Ruiz Tesfaye JOURNAL CLERK Primary Care Provider Allergies Active Allergy Reactions Criticality Noted Date Comments Codeine Nausea and Vomiting Low 07/08/2010 Penicillins Nausea and Vomiting,Weakness Low 2010 Medications hydrOXYzine HCl (ATARAX) 25 mg tablet Take 1 Tablet [...] OA (osteoarthritis) of knee 12/29/2011 Insomnia 10/07/2010 Osteoarthritis 07/08/2010 Generalized anxiety disorder 07/08/2010 Elevated BP 07/08/2010 Hemorrhoid 07/08/2010 Skin rash 07/08/2010 yearly 07/15 Overview (10/25/2014): MAMMO in 6mo ~ 04/2015 Hyperlipidemia Family [...] file Legal Sex Female 6:26 AM HEALTH INFORMATION INTERNSHIP Gender Identity Not on file Sexual Orientation Not on file 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 Filed Vital Signs Vital Sign Reading Time Taken Comments Blood Pressure 122/78 02/05/2016 2:18 PM HEALTH INFORMATION INTERNSHIP Pulse 73 02/05/2016 2:18 PM HEALTH INFORMATION INTERNSHIP Temperature 36.3 C (97.3 F) 12/26/2015 12:28 PM CDT Respiratory Rate 16 02/05/2016 2:18 PM HEALTH INFORMATION INTERNSHIP Oxygen Saturation 93% 02/05/2016 2:18 PM HEALTH INFORMATION INTERNSHIP Inhaled Oxygen Concentration - - Weight 81.6 kg (180 lb) 02/05/2016 2:18 PM HEALTH INFORMATION INTERNSHIP Height 172.7 cm (5' 8 ) 02/05/2016 2:18 PM HEALTH INFORMATION INTERNSHIP Body Mass Index 27.37 02/05/2016 2:18 PM HEALTH INFORMATION INTERNSHIP Plan of Treatment Health Maintenance Due Date Last Done Comments DTAP/TDAP/TD VACCINES (1 - Tdap) 1961 PNEUMOCOCCAL VACCINE 50+ YEA RS (1 of 1 - PCV) 1992 ZOSTER VACCINE (1 of 2) 1992 OSTEOPOROSIS SCREENING 11/28/2007 RSV VACCINE (60+ or ) (1 - 1-dose 75+ series) 2017 INFLUENZA VACCINE (#1) 2024 COLORECTAL SCREENING Discontinued 12/26/2015, 12/29/2011 (Declined) Colorectal Cancer Screening Discontinued FIT-DNA Q 3 years Discontinued FIT/FOBT Q 1 year Discontinued Flex Sig/CT Colonography Q 5 years Discontinued Insurance [place]IC[place] [id number] MEDICARE PART [place] B [place] [id number] Advance Directives For more information, please contact: [phone] * Full Code (Latest Code Status on File) Date Activated Date Inactivated Comments 12/26/2015 12:19 PM 12/26/2015 4:17 PM Care Teams Automatic Mounter Relationship Specialty Start Date End Date Ruiz Tesfaye NP [address] [place] [phone] PCP - General NURSE PRACTITIONER 12/20/19
--- OUTSIDE RECORDS SUMMARY | 2024-12-25 13:07 | XMS_ITS | Encounter Summary ---
Author Organization [facility] Address [address] [place] [address] Care Team Providers Care Care Technician Name Role Phone Ruiz Tesfaye CRUSHER AND BLENDER OPERATOR Primary Care Provider [phone]- [phone] Encounter Details Date Type Department Care Team (Latest Contact Info) Description 03/13/1998 Outpatient Historical [facility] Jonny Kapadia NO ADDRESS ON FILE Vaginitis and vulvovaginitis, unspecified (Primary Dx) Social History Tobacco Use Types Packs/Day Years Used Date Smoking Tobacco: Never Assessed Comments Unknown Sex and Gender Information Value Date Recorded Sex Assigned at Not on file Legal Sex Female 6:26 AM STAFFING ADMINISTRATOR Gender Identity Not on file Sexual Orientation Not on file documented as of this encounter Plan of Treatment Not on file documented as of this encounter Visit Diagnoses Diagnosis Vaginitis and vulvovaginitis, unspecified- Primary documented in this encounter Care Teams Care Technician Relationship Specialty Start Date End Date Ruiz Tesfaye NP [address] [place] [phone] PCP - General NURSE PRACTITIONER 12/20/19 documented as of this encounter
--- OUTSIDE RECORDS SUMMARY | 2024-12-25 13:07 | XMS_ITS | Encounter Summary ---
Author Organization [facility] Address [address] [place] [address] Care Team Providers Care Tire Layer Name Role Phone Ruiz Tesfaye MEDICAL OFFICE ASSISTANT INSTRUCTOR Primary Care Provider [phone] Reason for Referral * Outpatient Services (Routine) - Closed Specialty Diagnoses / Procedures Referred By Contac t Referred To Contact Diagnoses Other (abnormal) findings on radiological examination of breast Procedures MAMMO BREAST US RIGHT LTD Roberto Carlos Correa MD Phone: tel: fax: [facility] Pre-Registration [place] CALL TO MAKE APPOINTMENT ONLY [address] [place] [address] Phone: tel: fax: Referral ID Status Reason Start Date Expiration Date Visits Re quested Visits Authorized [id number] Closed 10/12/2014 11/12/2015 1 1 * Outpatient Services (Routine) - Closed Specialty Diagnoses / Procedures Referred By Contac t Referred To Contact Diagnoses Other (abnormal) findings on radiological examination of breast Procedures MAMMO DIGITAL DIAG BILAT Roberto Carlos Correa MD Phone: tel: fax: Referral ID Status Reason Start Date Expiration Date Visits Re quested Visits Authorized [id number] Closed 10/12/2014 11/12/2015 1 1 Encounter Details Date Type Department Care Team (Latest Contact Info) Description 10/12/[address] [facility] [address] [place] [address] Roberto Carlos Correa MD [address] [facility] [address] [place] [address] Other (abnormal) findings on radiological examination of breast (Primary Dx) Social History Tobacco Use Types Packs/Day Years Used Date Smoking Tobacco: Never Smokeless Tobacco: Never Alcohol Use Standard Drinks/Week Comments No 0 (1 standard drink = 0.6 oz pur e alcohol) Comments No Sex and Gender Information Value Date Recorded Sex Assigned at Not on file Legal Sex Female 6:26 AM REAL ESTATE ECONOMIST Gender Identity Not on file Sexual Orientation Not on file 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 Additional images on the right are presented to evaluate nodularity and calcifications. No suspicious features are noted, but there is one 9 mm nodule mid breast persistent, and calcifications are noted, upper outer, with benign features. Since we have no previous mammograms for comparison, I would recommend 6 month followup right mammogram with magnification images and possible repeat ultrasound, as close followup. Patient received a result/recommendation letter. SAMIR/armand 1320 PM - uploaded from Power Scribe - Narrative 10/23/2014 1:31 PM CDT Left Breast Technical Repeat Craniocaudad Image and Right Breast Digital Diagnostic Mammogram: Left repeat craniocaudad image was made as a technical repeat, at no additional charge to the patient, because of skin fold on that image of recent screening mammogram 10/10/2014. Left side appears unremarkable. Additional images on the right are presented, to evaluate possible areas of nodularity and one area of calcifications. The calcifications persist, but have benign-appearing features. A 9 mm nodule over the midportion of the breast persists, with benign features. Ultrasound of the area of the nodule on the right shows a 9 mm lobulated hypoechoic nodule. This is suspected to be fibrocystic, especially considering that there are multiple nodular areas which appear similar bilaterally on mammogram. us Roberto Carlos Correa MD MAMMO ORDERABLES Final Res ult * (ABNORMAL) MAMMO DIGITAL DIAG BILAT (10/23/2014 12:44 PM CDT) Anatomical Region Laterality Modality Breast Bilateral Mammography 10/23/2014 12:1 4 PM CDT Impressions 10/23/2014 1:31 PM CDT IMPRESSION: Left technical repeat craniocaudad image was made at no additional charge to the patient, and left side appears unremarkable and stable. Additional images on the right are presented to evaluate nodularity and calcifications. No suspicious features are noted, but there is one 9 mm nodule mid breast persistent, and calcifications are noted, upper outer, with benign features. Since we have no previous mammograms for comparison, I would recommend 6 month followup right mammogram with magnification images and possible repeat ultrasound, as close followup. Patient received a result/recommendation letter. SAMIR/armand 1320 PM - uploaded from [employer] - Narrative 10/23/2014 1:31 PM CDT Left Breast Technical Repeat Craniocaudad Image and Right Breast Digital Diagnostic Mammogram: Left repeat craniocaudad image was made as a technical repeat, at no additional charge to the patient, because of skin fold on that image of recent screening mammogram 10/10/2014. Left side appears unremarkable. Additional images on the right are presented, to evaluate possible areas of nodularity and one area of calcifications. The calcifications persist, but have benign-appearing features. A 9 mm nodule over the midportion of the breast persists, with benign features. Ultrasound of the area of the nodule on the right shows a 9 mm lobulated hypoechoic nodule. This is suspected to be fibrocystic, especially considering that there are multiple nodular areas which appear similar bilaterally on mammogram. us Roberto Carlos Correa MD MAMMO ORDERABLES Final Res ult documented in this encounter Visit Diagnoses Diagnosis Other (abnormal) findings on radiological examination of breast- Primary Other (abnormal) findings on radiological examination of breast Other (abnormal) findings on radiological examination of breast documented in this encounter Care Teams Tire Layer Relationship Specialty Start Date End Date Ruiz Tesfaye NP [address] [place] [phone] PCP - General NURSE PRACTITIONER 12/20/19 documented as of this encounter
--- OUTSIDE RECORDS SUMMARY | 2024-12-25 13:07 | XMS_ITS | Encounter Summary ---
Author Organization [facility] Address [address] [place] [address] Care Team Providers Care Director Of Infection Prevention Name Role Phone Ruiz Tesfaye NP Primary Care Provider Encounter Details Date Type Department Care Team (Late st Contact Info) Description 12/20/2019 Ancillary Orders [facility] Pre-Registration [place] CALL TO MAKE APPOINTMENT ONLY [address] [place] [address] Ruiz Tesfaye NP [address] [place] [phone] Breast cancer screening by mammogram Social History Tobacco Use Types Packs/Day Years Used Date Smoking Tobacco: Never Smokeless Tobacco: Never Alcohol Use Standard Drinks/Week Comments No 0 (1 standard drink = 0.6 oz pur e alcohol) Comments No Sex and Gender Information Value Date Recorded Sex Assigned at Not on file Legal Sex Female 6:26 AM CENTER MACHINE SET UP OPERATOR Gender Identity Not on file Sexual Orientation Not on file 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 No / Unsure 12/20/2019 11:56 AM CDT documented as of this encounter Plan of Treatment Not on file documented as of this encounter Visit Diagnoses Diagnosis Breast cancer screening by mammogram documented in this encounter Care Teams Director Of Infection Prevention Relationship Specialty Start Date End Date Ruiz Tesfaye NP [address] [place] [phone] PCP - General NURSE PRACTITIONER 12/20/19 documented as of this encounter
--- OUTSIDE RECORDS SUMMARY | 2024-12-25 13:07 | XMS_ITS | Encounter Summary ---
Author Organization [facility] Address [address] [place] [address] Care Team Providers Care Light Fixture Servicer Name Role Phone Ruiz Tesfaye WEB CONTENT WRITER Primary Care Provider [phone] Encounter Details Date Type Department Care Team (Late st Contact Info) Description 04/05/1999 Outpatient Historical [facility] Dermatology- [address] [place] [address] Jayro Bynum MD [address] [place] [address] Unspecified follow-up examination (Primary Dx) Social History Tobacco Use Types Packs/Day Years Used Date Smoking Tobacco: Never Assessed Comments Unknown Sex and Gender Information Value Date Recorded Sex Assigned at Not on file Legal Sex Female 6:26 AM HEEL REDUCER Gender Identity Not on file Sexual Orientation Not on file documented as of this encounter Plan of Treatment Not on file documented as of this encounter Visit Diagnoses Diagnosis Unspecified follow-up examination- Primary documented in this encounter Care Teams Light Fixture Servicer Relationship Specialty Start Date End Date Ruiz Tesfaye NP [address] [place] [phone] PCP - General NURSE PRACTITIONER 12/20/19 documented as of this encounter
--- NOTE | 2024-12-25 13:20 | ECG_ITS ---
Reverse Medical Test Date: 2024-12-25 Pat Name: Kanika Lane Department: Room: Gender: Female Web Editor: : 1940 Requested By: Jaylene Lancaster Order Number: [id number] Reading MD: CHARANJIT WELDON Measurements Intervals [place] Rate: 96 P: 63 NE: 190 QRS: -18 QRSD: 100 T: -37 QT: 369 QTc: 468 Interpretive Statements SINUS RHYTHM LOW QRS VOLTAGE IN PRECORDIAL LEADS [QRS DEFLECTION < 1.0 mV IN CHEST LEADS] INCOMPLETE RIGHT BUNDLE BRANCH BLOCK [90+ ms QRS DURATION, TERMINAL R IN V1/V2, 40+ ms S IN I/aVL/V4/V5/V6] POSSIBLE ANTERIOR MYOCARDIAL INFARCTION , OF INDETERMINATE AGE [30 ms Q WAVE IN V3/V4, OR R < 0.2 mV IN V4] MODERATE T-WAVE ABNORMALITY, CONSIDER LATERAL ISCHEMIA [-0.1+ mV T-WAVE IN I/aVL/V5/V6] Compared to ECG 08/14/2020 14:19:15 Low QRS voltage now present Electronically Signed On 12-25-2024 22:23:33 CDT by CHARANJIT WELDON [email or web address]
--- NOTE | 2024-12-25 13:24 | ED_ITS ---
HPI - Weakness 2 General: Chief complaint: Weakness Stated complaint: weakness Time Seen by Provider: 12/25/24 13:02 Source: patient and EMS Mode of arrival: EMS Limitations: no limitations History of Present Illness: 84-year-old female states she has been h aving generalized weakness since Thursday. States she had a syncopal episode yesterday where she had fell and did hit her head has an abrasion to her left forehead. States today she has felt extremely weak as well as had some slightly low blood pressures. Did receive fluids and route. She denies any fever denies any vomiting or diarrhea states she has had a slight cough. Related Data Home Medications ?Medication ?Instructions ?Recorded ?Confirmed loratadine 10 mg tablet 10 mg PO DAILY PRN Allergy S ymptoms 08/14/20 12/25/24 Previous Rx's ?Medication ?Instructions ?Recorded omega 7-onp-ruw-fish oil 1,000 mg 2 cap PO BID #120 ca ps 06/02/21 (120 mg-180 mg) capsule (Fish Oil) pen needle, diabetic 33 gauge x #100 ea 11/28/21 cholecalciferol (vitamin D3) 125 125 mcg PO DAILY #30 caps 11/10/22 mcg (5,000 unit) capsule fluticasone propionate 50 1 spray intranasal Q12H #16 grams 09/23/23 mcg/actuation nasal spray,suspension (Flonase Allergy Relief) hydrocortisone 2.5 % topical cream 1 applic [place] BID PRN hemorrhoids 09/23/23 with perineal applicator #30 grams (Anusol-HC) meloxicam 7.5 mg tablet 7.5 mg PO DAILY@1030 #90 tab s 07/09/24 Held on 11/28/24. Instructions: Hold monitor heart alprazolam 0.25 mg tablet (Xanax) 0.125 mg (1/2 x 0.25 mg) PO 08/02/24 BEDTIME PRN Anxiety #30 tabs acetaminophen 650 mg 650 mg PO Q12H PRN pain #60 tabs 11/28/24 tablet,extended release (Tylenol Arthritis Pain) diclofenac sodium 1 % topical gel 2 g topical QID PRN joint pain 11/28/24 (Voltaren Arthritis Pain) #100 grams duloxetine 20 mg capsule,delayed 20 mg PO DAILY #180 c aps 11/28/24 release levothyroxine 50 mcg tablet 50 mcg PO DAILY #90 tabs 0 11/28/24 pravastatin 40 mg tablet 40 mg PO DAILY #90 tabs 11/01 11/24 spironolactone 25 mg tablet 25 mg PO DAILY #90 tabs topiramate 50 mg tablet 25 mg (1/2 x 50 mg) PO BID # 90 tabs 11/28/24 valsartan 320 mg tablet (Diovan) 320 mg PO DAILY #90 t abs 11/28/24 Portable Oxygen concentrator #1 ea 12/02/24 Allergies Allergy/AdvReac Type Severity Reaction Status Date / Time codeine Allergy Unknown Unknown Verified 12/25/24 13:17 Penicillins Allergy Unknown Unknown Verified 12/25/24 13:17 Review of Systems 2 Const: Reports: fatigue PFSH ED 2 PFSH: Medical History COPD (chronic obstructive pulmonary disease) Insomnia Tremor of both hands Bilateral pulmonary embolism Fracture of femoral neck, left, closed DDD (degenerative disc disease), lumbar Essential (primary) hypertension Anxiety Surgical History History of hip surgery left History of hernia repair History of hysterectomy History of back surgery 1988 lumbar Family History Other Cancer Diabetes Hypertension Denies family history of Dementia Stroke Social History Smoking and tobacco/nicotine status: never used tobacco/nicotine Second hand smoke exposure: No Alcohol intake: never Substance/Drug Use: never Adopted: No Caregiver/support person: No Lives independently: Yes Household members: spouse Housing: House Marital status: Number of children: 1 service: No Current occupational status: retired Do you think of yourself as: Straight/Heterosexual Current gender identity: Female Physical Exam 2 Const: COMMON NORMALS: patient oriented x3 HENMT: COMMON NORMALS: normocephalic HEAD & SCALP: normocephalic OTHER: abrasion to left forehead Eye: COMMON NORMALS: Equal, round and reactive pupils present and EOMs intact bilaterally PUPIL: Yes Equal, round and reactive pupils present Neck/C-Spine: COMMON NORMALS: full ROM and supple Chest: COMMONS NORMALS: normal inspection of the chest and normal palpation of entire chest wall Resp: COMMON NORMALS: normal respiratory effort, No retractions, No use of accessory muscles and clear to auscultation bilaterally AUSCULTATION: clear to auscultation bilaterally Cardio: COMMON NORMALS: regular rate, regular rhythm and No murmurs present (Cardio) RATE: regular rate RHYTHM: regular rhythm GI: COMMON NORMALS: Normal to inspection, nondistended, normoactive bowel sounds present, Soft to palpation, non-tender and no masses PALPATION: Yes Soft to palpation Extremity: COMMON NORMALS: normal to inspection and full ROM Neuro: COMMON NORMALS: patient oriented x3, moves all extremities and no focal motor deficits Psych: COMMON NORMALS: mental status grossly normal, Normal thought process present and cooperative THOUGHT PROCESS: Normal thought process present Skin: COMMON NORMALS: no rashes or lesions noted and no wounds GENERAL SKIN EXAM: no rashes or lesions noted Course 2 Vital Signs: Vital signs: Vital Signs Temperature 97.4 F L 12/25/24 13:11 Pulse Rate 91 12/25/24 16:17 Respiratory Rate 16 12/25/24 16:17 Blood Pressure 104/64 12/25/24 16:17 Pulse Oximetry 96 12/25/24 16:17 Oxygen Delivery Me thod Nasal Cannula 12/25/24 14:33 Oxygen Flow Rate 4 12/25/24 14:33 MDM - Weakness Medical Decision Making Patient presents here with generalized weakness and had a syncopal event yesterday. Patient initially had slightly low blood pressure but improved here after IV fluids. Does have an elevated lactate and slightly elevated white count consistent with sepsis. She did not receive the full sepsis bolus she has CHF and her BNP is elevated and fear would do more harm by fluid overloading her. Her blood pressure here is improved after her fluid bolus is 111/71 currently. Blood cultures were drawn and antibiotics started. Patient head CT here is normal she has no's cardiac signs for her syncopal event. I did speak to Dr. Cordova and will admit at this time Medical Records I reviewed the patient's medical records. Lab Data I reviewed the patient's lab results. 12/25/24 13:22 12/25/24 13:22 Radiology Impressions Chest X-Ray 12/25/24 13:04 IMPRESSION: No acute finding. Cervical Spine CT 12/25/24 14:30 IMPRESSION: 1. Degenerative changes as above. 2. No acute cervical spinal bony injury identified. Head CT 12/25/24 14:30 IMPRESSION: 1. Age appropriate supratentorial and infratentorial atrophy. 2. Chronic white matter microvascular ischemic disease. 3. No acute intracranial injury identified. Laboratory Results WBC 11.90 10^3/uL (3.29-11.43) H 12/25/24 13:22 RBC 5.04 10^6/uL (3.85-5.65) 12/25/24 13:22 Hgb 14.50 g/dL (11.27-16.99) 12/25/24 13:22 Hct 44.9 % (36-47) 12/25/24 13:22 MCV 89.1 fl (85-98) 12/25/24 13:22 MCH 28.8 pg (27-33) 12/25/24 13:22 MCHC 32.3 g/dL (30-55) 12/25/24 13:22 RDW 13.5 % (12.1-15.1) 12/25/24 13:22 Plt Count 290 10^3/cmm (157-399) 12/25/24 13:22 MPV 11.3 fL (7.4-10.4) H 12/25/24 13:22 Neut % (Auto) 63.4 % 12/25/24 13:22 Lymph % (Auto) 27.1 % 12/25/24 13:22 Miner % (Auto) 7.0 % 12/25/24 13:22 Eos % (Auto) 1.5 % 12/25/24 13:22 Baso % (Auto) 0.7 % 12/25/24 13:22 Neut # (Auto) 7.54 10^3/uL (1.8-7.7) 12/25/24 13:22 Lymph # (Auto) 3.2 10^3/uL (0.8-4.8) 12/25/24 13:22 Miner # (Auto) 0.8 10^3/uL (0.2-0.9) 12/25/24 13:22 Eos # (Auto) 0.2 10^3/uL (0.0-0.8) 12/25/24 13:22 Baso # (Auto) 0.1 10^3/uL (0.0-0.1) 12/25/24 13:22 Nucleated RBC % (auto) 0 % 12/25/24 13:22 Nucleated RBCs # 0.0 /100WBC 12/25/24 13:22 Sodium 138 mmol/L (136-145) 12/25/24 13:22 Potassium 4.1 mmol/L (3.5-5.1) 12/25/24 13:22 Chloride 100 mmol/L (98-107) 12/25/24 13:22 Carbon Dioxide 22 mmol/L (22-29) 12/25/24 13:22 Anion Gap 20.1 (5-19) H 12/25/24 13:22 BUN 20 mg/dL (8-23) 12/25/24 13:22 Creatinine 1.3 mg/dL (0.5-0.9) H 12/25/24 13:22 GFR Calculation Not Reportable 12/25/24 13:22 Glucose 136 mg/dL (65-115) H 12/25/24 13:22 Calculated Osmolality 291 mOsm/kg (285-295) 12/25/24 13:22 Lactic Acid 3.2 mmol/L (0.5-2.2) H 12/25/24 13:22 Lactic Acid (Sepsis) 2.7 mmol/L (0.5-2.2) H 12/25/24 15:21 Calcium 9.6 mg/dL (8.5-10.5) 12/25/24 13:22 Total Bilirubin 0.4 mg/dL (0.15-1.2) 12/25/24 13:22 AST 26 U/L (0-32) 12/25/24 13:22 ALT 26 U/L (0-33) 12/25/24 13:22 Alkaline Phosphatase 144 U/L (35-105) H 12/25/24 13:22 NT-Pro-B Natriuret Pep 68134 pg/mL (0-450) H 12/25/24 13:22 Total Protein 6.8 g/dL (6.6-8.7) 12/25/24 13:22 Albumin 4.5 g/dL (3.5-5.2) 12/25/24 13:22 Globulin 2.3 g/dL (1.3-4.6) 12/25/24 13:22 Urine Color Yellow (Yellow) 12/25/24 15:15 Urine Appearance Cloudy (CLEAR) A 12/25/24 15:15 Urine pH 5.0 (5-7) 12/25/24 15:15 Ur Specific [place] 1.013 (1.005-1.030) 12/25/24 15:15 Urine Protein Trace (Negative) A 12/25/24 15:15 Urine Glucose (UA) Negative (Normal) 12/25/24 15:15 Urine Ketones Negative (Negative) 12/25/24 15:15 Urine Blood Trace (Negative) A 12/25/24 15:15 Urine Nitrate Negative (Negative) 12/25/24 15:15 Urine Bilirubin Negative (Negative) 12/25/24 15:15 Urine Urobilinogen 0.2 mg/dL (Negative) 12/25/24 15:15 Ur Leukocyte Esterase 3+ (Negative) A 12/25/24 15:15 Urine RBC 0-2 /hpf (0-2) 12/25/24 15:15 Urine WBC >100 /hpf (0-5) H 12/25/24 15:15 Ur Squamous Epith Cells 6-10 /hpf (0-5) 12/25/24 15:15 Amorphous Sediment Not Reportable 12/25/24 15:15 Urine Bacteria 1+ /hpf (NONE) H 12/25/24 15:15 Hyaline Casts 3.71 /lpf 12/25/24 15:15 Influenza A (PCR) Negative (Negative) 12/25/24 13:46 Influenza Type B (PCR) Negative (Negative) 12/25/24 13:46 RSV (PCR) Negative (Negative) 12/25/24 13:46 SARS-CoV-2 (PCR) Negative (Negative) 12/25/24 13:46 All radiology interpretation(s) finalized by discharge EKG Data EKG 1: I personally reviewed and interpreted this EKG as follows: EKG interpretation date: 12/25/24 EKG interpretation time: 13:20 Interpretation: nsr hr [address] elevation qrs 100 qtc 423 Discharge Plan Discharge Patient Disposition: Admitted As Inpatient Clinical Impression: Acute cystitis, Syncope, Sepsis Condition: Stable Coding Level of Care Code ED Human Resources Intern for Chg Linda
[2024-12-25 13:26] LABS: Hematocrit 44.9 % (36-47); Hemoglobin 14.50 g/dL (11.27-16.99); Mean Corpuscular HGB Conc 32.3 g/dL (30-55); Mean Corpuscular Hemoglobin 28.8 pg (27-33); Mean Corpuscular Volume 89.1 fl (85-98); Nucleated Red Blood Cells % 0 %; Platelet Count 290 10^3/cmm (157-399); Red Blood Count 5.04 10^6/uL (3.85-5.65); White Blood Count 11.90 10^3/uL (3.29-11.43)
[2024-12-25 13:43] LABS: Lactic Sepsis W/Reflex 3.2 mmol/L (0.5-2.2)
[2024-12-25 13:52] LABS: Alanine Aminotransferase 26 U/L (0-33); Albumin Level 4.5 g/dL (3.5-5.2); Alkaline Phosphatase 144 U/L (35-105); Anion Gap 20.1 (5-19); Aspartate Amino Transferase 26 U/L (0-32); Blood Urea Nitrogen 20 mg/dL (8-23); Calcium 9.6 mg/dL (8.5-10.5); Carbon Dioxide 22 mmol/L (22-29); Chloride 100 mmol/L (98-107); Globulin 2.3 g/dL (1.3-4.6); Glucose 136 mg/dL (65-115); NT Pro B Type Natriuretic Pept 11954 pg/mL (0-450); Osmolality Calculated 291 mOsm/kg (285-295); Potassium 4.1 mmol/L (3.5-5.1); Sodium 138 mmol/L (136-145); Total Protein 6.8 g/dL (6.6-8.7)
[2024-12-25 13:54] LABS: Creatinine Clr Calc Pharmacy 36.4401
[2024-12-25 14:22] LABS: Reflex Lactate Order REFLEX LACTIC ORDERD
[2024-12-25] MEDS: cefTRIAXone 1,000 mg SDV 1000 MG IVP (14:26)
[2024-12-25 14:27] LABS: Respiratory Syncytial Virus Ce NEGATIVE (Negative); SARS-CoV-2 PCR NEGATIVE (Negative)
--- NOTE | 2024-12-25 14:30 | CTR_ITS ---
PROCEDURE INFORMATION: Exam: CT Head Without Contrast Exam date and time: 12/25/2024 2:39 PM Age: 84 years old Clinical indication: Injury or trauma; Fall; Syncope and collapse TECHNIQUE: Imaging protocol: Computed tomography of the head without contrast. Radiation optimization: All CT scans at this facility use at least one of these dose optimization techniques: automated exposure control; mA and/or kV adjustment per patient size (includes targeted exams where dose is matched to clinical indication); or iterative reconstruction. COMPARISON: CT cervical spin wo con* [id number] 12/25/2024 2:39 PM RADIATION DOSE METRICS: Total DLP (mGy-cm): 300 FINDINGS: Brain: Minimal hypoattenuating foci are noted in the anterior lateral ventricular periventricular white matter bilaterally. Mild right globus pallidus calcification. No intracranial hemorrhage. No intracranial mass, or acute cortical infarction identified. Ventricles: Mild prominence of the ventricular system and subarachnoid spaces is consistent with the patient's age of 84 years. Paranasal sinuses: Visualized sinuses are unremarkable. No fluid levels. Mastoid air cells: Visualized mastoid air cells are well aerated. Bones: No acute abnormality identified. No acute fracture. Soft tissues: Unremarkable. Vasculature: Atherosclerotic calcifications are present involving the carotid artery siphons and vertebral arteries bilaterally. CT/CT head wo con* [id number] IMPRESSION: 1. Age appropriate supratentorial and infratentorial atrophy. 2. Chronic white matter microvascular ischemic disease. 3. No acute intracranial injury identified.
--- NOTE | 2024-12-25 14:30 | CTR_ITS ---
PROCEDURE INFORMATION: Exam: CT Cervical Spine Without Contrast Exam date and time: 12/25/2024 2:39 PM Age: 84 years old Clinical indication: Injury or trauma; Fall TECHNIQUE: Imaging protocol: Computed tomography of the cervical spine without contrast. Radiation optimization: All CT scans at this facility use at least one of these dose optimization techniques: automated exposure control; mA and/or kV adjustment per patient size (includes targeted exams where dose is matched to clinical indication); or iterative reconstruction. COMPARISON: CR XR cervical spine 3V* [id number] 11/15/2019 2:07 PM RADIATION DOSE METRICS: Total DLP (mGy-cm): 195.8 FINDINGS: Bones: No fracture. No destructive bony process identified. Moderate atlantodental osteoarthritis. Moderate left C3-C4 neural foraminal narrowing (uncovertebral). Moderate left, mild right C4-C5 primary facet osteoarthritis. Moderate right C3-C4 neural foraminal narrowing. Moderate left C4-C5 primary facet osteoarthritis. Mild C5-C6 retrolisthesis. Mild right C4-C5, C5-C6, C6-C7 primary facet osteoarthritis. Trachea: Right thoracic inlet posterolateral tracheal diverticulum, normal variant. Lungs: Lung apices are normal. Vasculature: Bilateral carotid atherosclerotic calcifications. Soft tissues: Unremarkable. CT/CT cervical spin wo con* [id number] IMPRESSION: 1. Degenerative changes as above. 2. No acute cervical spinal bony injury identified.
[2024-12-25] MEDS: pantoprazole 40 mg SDV IVP (15:32)
[2024-12-25 15:34] LABS: Glucose Urine UA Negative (Normal); Nitrate Urine Negative (Negative); Specific Gravity, Urine 1.013 (1.005-1.030)
[2024-12-25 15:39] LABS: Add Urine Microscopic? YES
[2024-12-25 15:49] LABS: Lactic Acid level (Lactate) 2.7 mmol/L (0.5-2.2)
--- NOTE | 2024-12-25 19:31 | P.HP_ITS ---
Providers/Chief Complaint 2 Admitting Physician: Tate Gipson MD Primary Care Provider: Ruiz Tesfaye, SYSTEMS INTEGRATION ADVISOR-C Chief Complaint: weakness History of Present Illness Kanika Lane is a 84 year old female lives at home and generally in good health. Her son lives with her. Patient has been lightheaded with a cough for the last 3 days. She states she feels hot when she stands. She has had nausea but not vomiting. She denies dysuria symptoms. She was brought in after a fall on Thursday. White count in the urine greater than 100,000 serum white count 11.9. She has been treated with Rocephin and azithromycin and referred for observation Father of lung cancer and liver cancer of pneumonia She had nausea with codeine and also vomiting She had nausea with penicillin Review of Systems 2 Narrative: General No fever but she has been hot and cold for the last 3 days Cardiovascular no chest pain or palpitations or edema Respiratory positive for cough nonproductive she is on 2 L of oxygen chronically for COPD from secondhand smoke was never a smoker herself GI positive for nausea no vomiting diarrhea constipation she does have loose stools she attributes to taking a probiotic. 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 or discharge Heme positive for history of DVT after hip fracture surgery Malignancy history positive for cervical cancer she had a hysterectomy in around age 42 Medications/Allergies Home Medications ?Medication ?Instructions ?Recorded ?Confirmed ?Last Taken ?Type loratadine 10 mg tablet 10 mg PO DAILY PRN Allergy S ymptoms 08/14/20 12/25/24 12/24/24 History omega 8-vgy-ect-fish oil 1,000 mg 2 cap PO BID #120 ca ps 06/02/21 12/25/24 12/24/24 Rx (120 mg-180 mg) capsule (Fish Oil) pen needle, diabetic 33 gauge x #100 ea 11/28/2112/25 Unknown Rx cholecalciferol (vitamin D3) 125 125 mcg PO DAILY #30 caps 11/10/22 12/25/24 12/24/24 Rx mcg (5,000 unit) capsule fluticasone propionate 50 1 spray intranasal Q12H #16 grams 09/23/23 12/25/24 Unknown Rx mcg/actuation nasal spray,suspension (Flonase Allergy Relief) hydrocortisone 2.5 % topical cream 1 applic [place] BID PRN hemorrhoids 09/23/23 12/25/24 Unknown Rx with perineal applicator #30 grams (Anusol-HC) meloxicam 7.5 mg tablet 7.5 mg PO DAILY@1030 #90 tab s 07/09/24 12/25/24 Unknown Rx Held on 11/28/24. Instructions: Hold monitor heart alprazolam 0.25 mg tablet (Xanax) 0.125 mg (1/2 x 0.25 mg) PO 08/02/24 12/25/24 12/24/24 19:00 Rx BEDTIME PRN Anxiety #30 tabs acetaminophen 650 mg 650 mg PO Q12H PRN pain #60 tabs 11/28/24 12/25/24 12/24/24 Rx tablet,extended release (Tylenol Arthritis Pain) diclofenac sodium 1 % topical gel 2 g topical QID PRN joint pain 11/28/24 12/25/24 Unknown Rx (Voltaren Arthritis Pain) #100 grams duloxetine 20 mg capsule,delayed 20 mg PO DAILY #180 c aps 11/28/24 12/25/24 12/24/24 Rx release levothyroxine 50 mcg tablet 50 mcg PO DAILY #90 tabs 0 11/28/24 12/25/24 12/24/24 Rx pravastatin 40 mg tablet 40 mg PO DAILY #90 tabs 11/0112/25/24 12/24/24 Rx spironolactone 25 mg tablet 25 mg PO DAILY #90 tabs 12/25/24 Unknown Rx topiramate 50 mg tablet 25 mg (1/2 x 50 mg) PO BID # 90 tabs 11/28/24 12/25/24 12/24/24 Rx valsartan 320 mg tablet (Diovan) 320 mg PO DAILY #90 t abs 11/28/24 12/25/24 12/24/24 Rx Portable Oxygen concentrator #1 ea 12/02/24 12/25/24 U nknown Rx Allergies Allergy/AdvReac Type Severity Reaction Status Date / Time codeine Allergy Unknown Unknown Verified 12/25/24 13:17 Penicillins Allergy Unknown Unknown Verified 12/25/24 13:17 PFSH Acute 2 PFSH: Medical History (Updated 12/25/24 @ 16:57 by Jaylene Lancaster MD) COPD (chronic obstructive pulmonary disease) Insomnia Tremor of both hands Bilateral pulmonary embolism Fracture of femoral neck, left, closed DDD (degenerative disc disease), lumbar Essential (primary) hypertension Anxiety Surgical History History of hip surgery left History of hernia repair History of hysterectomy History of back surgery 1988 lumbar Family History Other Cancer Diabetes Hypertension Denies family history of Dementia Stroke Social History (Updated 12/25/24 @ 19:37 by Tate Gipson MD) Smoking and tobacco/nicotine status: never used tobacco/nicotine Second hand smoke exposure: No Alcohol intake: never Substance/Drug Use: never Additional social history: She is a retired Fund Recstylist. Her dad smoked and her smoked as well she was exposed to secondhand smoke ended up with COPD she wants DNR status. Patient lives with her son together Adopted: No Caregiver/support person: No Lives independently: Yes Household members: spouse Housing: House Marital status: Number of children: 1 service: No Current occupational status: retired Previous occupational history: [employer] Do you think of yourself as: Straight/Heterosexual Current gender identity: Female Vitals/I&O/Wt Last Vital Signs Temp 97.4 F L 12/25/24 13:11 Pulse 92 12/25/24 18:50 Resp 23 H 12/25/24 18:50 BP 138/84 12/25/24 18:50 Pulse Ox 92 12/25/24 18:50 O2 Del Method Nasal Cannula 12/25/24 18:50 O2 Flow Rate 2 12/25/24 18:50 12/25/24 12/25/24 12/25/24 06:59 14:59 22:59 Intake Total 1750 / 1750 Balance 1750 / 1750 Weight last 48 hrs Weight 77.111 kg Physical Exam 2 Narrative: General well-developed well-nourished female appears younger than her stated age CV regular rate and rhythm Lungs clear to auscultation bilaterally Abdomen positive bowel tones soft nontender no suprapubic tenderness Back no flank tenderness Calves trace ankle edema Data 12/25/24 13:22 12/25/24 13:22 Micro: Microbiology 12/25/24 14:17 Blood Culture - Preliminary Blood SPECIMEN COLLECTED 12/25/24 14:14 Blood Culture - Preliminary Blood SPECIMEN COLLECTED CXR: My impression: No pneumonia Radiologist's impression: No acute findings A&P Assessment and plan 1. Acute cystitis: No past UTIs documented here. No history of resistant organisms. Will treat with Rocephin 2. Sepsis: Fluid bolus and antibiotics reevaluate in the morning 3. Syncope: PT evaluation and if doing well likely discharge home tomorrow PDMP PDMP Reviewed: Not Reviewed Attestations 2 Medical Necessity Statement*: Patient admitted the hospital and expected to require only 1-2 midnights Coding Level of Care Code 41913 Diagnoses Acute cystitis N30.00 Sepsis A41.9 Syncope R55 Time Spent (min) 55
--- OUTSIDE RECORDS SUMMARY | 2024-12-25 20:18 | XMS_ITS | Encounter Summary ---
Author Organization [facility] Address [address] [place] [address] Care Team Providers Care Newspaper Inserter Name Role Phone Ruiz Tesfaye NP Primary Care Provider Encounter Details Date Type Department Care Team (Late st Contact Info) Description 03/19/1999 Outpatient Historical [facility] Dermatology- 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
--- OUTSIDE RECORDS SUMMARY | 2024-12-25 20:18 | XMS_ITS | Encounter Summary ---
Author Organization [facility] Address [address] [place] [address] Care Team Providers Care Eyelet Riveter Name Role Phone Ruiz Tesfaye NP Primary Care Provider [phone] Reason for Referral * Outpatient Services (Routine) - Closed Specialty Diagnoses / Procedures Referred By Contac t Referred To Contact Diagnoses Other screening mammogram Procedures MAMMO DIGITAL SCREEN BILAT Roberto Carlos Correa MD Phone: tel: fax: [place] Pre-Registration [place] CALL TO MAKE APPOINTMENT ONLY [address] [place] [address] Phone: tel: fax: Referral ID Status Reason Start Date Expiration Date Visits Re quested Visits Authorized [id number] Closed 09/26/2014 10/27/2015 1 1 Encounter Details Date Type Department Care Team (Latest Contact Info) Description 09/26/2014 Ancillary Orders [place] Pre-[facility] [place] CALL TO MAKE APPOINTMENT ONLY [address] [place] [address] Roberto Carlos Correa MD [address] [facility] [address] [place] [address] Other screening mammogram (Primary Dx) Social History Tobacco Use Types Packs/Day Years Used Date Smoking Tobacco: Never Smokeless Tobacco: Never Alcohol Use Standard Drinks/Week Comments No 0 (1 standard drink = 0.6 oz pur e alcohol) Comments No Sex and Gender Information Value Date Recorded Sex Assigned at Not on file 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 CONCLUSION: I would recommend the [...] mammogram documented in this encounter Care Teams Eyelet Riveter Relationship Specialty Start Date End Date Ruiz Tesfaye, GUIDE CRUISE [address] [place] [phone] PCP - General NURSE PRACTITIONER 12/20/19 documented as of this encounter
--- OUTSIDE RECORDS SUMMARY | 2024-12-25 20:18 | XMS_ITS | Clinical Summary ---
Author Organization [facility] Address [address] [facility] [address] 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 Gender Identity Not on file Sexual Orientation Not on file Last Filed Vital Signs Vital Sign Reading Time Taken Comments Blood Pressure 122/78 02/05/2016 2:18 PM OYSTER FISHERMAN Pulse 73 02/05/2016 2:18 PM OYSTER FISHERMAN Temperature 36.3 C (97.3 F) 12/26/2015 12:28 PM CDT Respiratory Rate 16 02/05/2016 2:18 PM OYSTER FISHERMAN Oxygen Saturation - - Inhaled Oxygen Concentration - - Weight 81.6 kg (180 lb) 02/05/2016 2:18 PM OYSTER FISHERMAN Height 172.7 cm (5' 8 ) 02/05/2016 2:18 PM OYSTER FISHERMAN Body Mass Index 27.37 02/05/2016 2:18 PM OYSTER FISHERMAN Plan of Treatment Health Maintenance Due Date [...] Colonography Q 5 years Discontinued Care Teams Pain Management Nurse Relationship Specialty Start Date End Date Ruiz Tesfaye NP [address] [place] [phone] PCP - General NURSE PRACTITIONER 12/20/19
--- OUTSIDE RECORDS SUMMARY | 2024-12-25 20:18 | XMS_ITS | Encounter Summary ---
Author Organization [facility] Address [address] [place] [address] Care Team Providers Care Technical Director Name Role Phone Ruiz Tesfaye FACILITIES MANAGEMENT EXECUTIVE Primary Care Provider [phone]- [phone] Encounter Details Date Type Department Care Team (Latest Contact Info) Description 03/13/1998 Outpatient Historical [facility] Jonny Kapadia NO ADDRESS ON FILE Vaginitis and vulvovaginitis, unspecified (Primary Dx) Social History Tobacco Use Types Packs/Day Years Used Date Smoking Tobacco: Never Assessed Comments Unknown Sex and Gender Information Value Date Recorded Sex Assigned at Not on file Legal Sex Female 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
--- OUTSIDE RECORDS SUMMARY | 2024-12-25 20:18 | XMS_ITS | Encounter Summary ---
Author Organization [facility] Address [address] [place] [address] Care Team Providers Care Cement Or Concrete Finishing Supervisor Name Role Phone Ruiz Tesfaye ENVIRONMENTAL SAMPLING TECHNICIAN Primary Care Provider Encounter Details Date Type Department Care Team (Late st Contact Info) Description 05/09/2005 Outpatient Historical [facility] Dermatology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
--- OUTSIDE RECORDS SUMMARY | 2024-12-25 20:18 | XMS_ITS | Encounter Summary ---
Author Organization [facility] Address [address] [place] [address] Care Team Providers Care Director Biomedical Engineering Name Role Phone Ruiz Tesfaye SET MAKING MACHINE OPERATOR Primary Care Provider Encounter Details Date Type Department Care Team (Latest Contact Info) Description 01/30/2004 Outpatient [facility] Oral [facility] Maxillo Surgery[address] [place] [address] Abraham Llanos, PhD NO ADDRESS ON FILE JOINT PAIN-JOINT NEC (Primary Dx) Social History Tobacco Use Types Packs/Day Years Used Date Smoking Tobacco: Never Assessed Comments Unknown Sex and Gender Information Value Date Recorded Sex Assigned at Not on file Legal Sex Female 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
--- OUTSIDE RECORDS SUMMARY | 2024-12-25 20:18 | XMS_ITS | Encounter Summary ---
Author Organization [facility] Address [address] [place] [address] Care Team Providers Care Punch Hand Name Role Phone Ruiz Tesfaye TAILERCPA Primary Care Provider [phone] Reason for Referral * Outpatient Services (Routine) - Closed Specialty Diagnoses / Procedures Referred By Contac t Referred To Contact Diagnoses Other (abnormal) findings on radiological examination of breast Procedures MAMMO BREAST US RIGHT LTD Roberto Carlos Correa MD Phone: tel: fax: [facility] Pre-Registration [place] CALL TO MAKE APPOINTMENT ONLY [address] [place] [address] Phone: tel: fax: Referral ID Status Reason Start Date Expiration Date Visits Re quested Visits Authorized [id number] Closed 10/12/2014 11/12/2015 1 1 * Outpatient Services (Routine) - Closed Specialty Diagnoses / Procedures Referred By Contac t Referred To Contact Diagnoses Other (abnormal) findings on radiological examination of breast Procedures MAMMO DIGITAL DIAG BILAT Roberto Carlos Correa MD Phone: tel: fax: Referral ID Status Reason Start Date Expiration Date Visits Re quested Visits Authorized [id number] Closed 10/12/2014 11/12/2015 1 1 Encounter Details Date Type Department Care Team (Latest Contact Info) Description 10/12/2014 Ancillary Orders [facility] [address] [place] [address] Roberto Carlos Correa MD [address] [facility] [address] [place] [address] Other (abnormal) findings on radiological examination of breast (Primary Dx) Social History Tobacco Use Types Packs/Day Years Used Date Smoking Tobacco: Never Smokeless Tobacco: Never Alcohol Use Standard Drinks/Week Comments No 0 (1 standard drink = 0.6 oz pur e alcohol) Comments No Sex and Gender Information Value Date Recorded Sex Assigned at Not on file Legal Sex Female 6:26 AM DRILL PRESS OPERATOR Gender Identity Not on file Sexual [...] letter. SAMIR/armand 1320 PM - uploaded from [employer] - Narrative 10/23/2014 1:31 PM CDT Left [...] breast documented in this encounter Care Teams Punch Hand Relationship Specialty Start Date End Date Ruiz Tesfaye NP [address] [place] [phone] PCP - General NURSE PRACTITIONER 12/20/19 documented as of this encounter
--- OUTSIDE RECORDS SUMMARY | 2024-12-25 20:18 | XMS_ITS | Encounter Summary ---
Author Organization [facility] Address [address] [place] [address] Care Team Providers Care Legal Stenographer Name Role Phone Ruiz Tesfaye NP Primary Care Provider Encounter Details Date Type Department Care Team (Late st Contact Info) Description 12/20/2019 Ancillary Orders [facility] Pre-Registration [place] CALL TO MAKE APPOINTMENT ONLY [address] [place] [address] Ruiz Tesfaye NP [address] [place] [phone] Breast cancer screening by mammogram Social History Tobacco Use Types Packs/Day Years Used Date Smoking Tobacco: Never Smokeless Tobacco: Never Alcohol Use Standard Drinks/Week Comments No 0 (1 standard drink = 0.6 oz pur e alcohol) Comments No Sex and Gender Information Value Date Recorded Sex Assigned at Not on file Legal Sex Female 6:26 AM STEAM POWER PLANT OPERATOR Gender Identity Not on file Sexual [...] mammogram documented in this encounter Care Teams Legal Stenographer Relationship Specialty Start Date End Date Ruiz Tesfaye NP [address] [place] [phone] PCP - General NURSE PRACTITIONER 12/20/19 documented as of this encounter
--- OUTSIDE RECORDS SUMMARY | 2024-12-25 20:18 | XMS_ITS | Encounter Summary ---
Author Organization [facility] Address [address] [place] [address] Care Team Providers Care Isotope Technician Name Role Phone Ruiz Tesfaye FONDANT PUFF MAKER Primary Care Provider [phone] Encounter Details Date Type Department Care Team (Late st Contact Info) Description 04/05/1999 Outpatient Historical [facility]- [address] [place] [address] Jayro Bynum MD [address] [place] [address] Unspecified follow-up examination (Primary Dx) Social History Tobacco Use Types Packs/Day Years Used Date Smoking Tobacco: Never Assessed Comments Unknown Sex and Gender Information Value Date Recorded Sex Assigned at Not on file Legal Sex Female 6:26 AM BUSINESS BANKING RELATIONSHIP MANAGER Gender Identity Not on file Sexual Orientation Not on file documented as of this encounter Plan of Treatment Not on file documented as of this encounter Visit Diagnoses Diagnosis Unspecified follow-up examination- Primary documented in this encounter Care Teams Isotope Technician Relationship Specialty Start Date End Date Ruiz Tesfaye NP [address] [place] [phone] PCP - General NURSE PRACTITIONER 12/20/19 documented as of this encounter
--- OUTSIDE RECORDS SUMMARY | 2024-12-25 20:18 | XMS_ITS | Clinical Summary ---
Author Organization [facility]3] [facility] Address 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 Filed Vital Signs Vital Sign Reading Time Taken Comments Blood Pressure 122/78 02/05/2016 2:18 PM INSURANCE ASSOCIATE Pulse 73 02/05/2016 2:18 PM INSURANCE ASSOCIATE Temperature 36.3 C (97.3 F) 12/26/2015 12:28 PM CDT Respiratory Rate 16 02/05/2016 2:18 PM INSURANCE ASSOCIATE Oxygen Saturation 93% 02/05/2016 2:18 PM INSURANCE ASSOCIATE Inhaled Oxygen Concentration - - Weight 81.6 kg (180 lb) 02/05/2016 2:18 PM INSURANCE ASSOCIATE Height 172.7 cm (5' 8 ) 02/05/2016 2:18 PM INSURANCE ASSOCIATE Body Mass Index 27.37 02/05/2016 2:18 PM INSURANCE ASSOCIATE Plan of Treatment Health Maintenance Due Date [...] Discontinued Insurance MEDICARE PART A AND B [place] [id number] MEDICARE PART A AND B [place] [place] [id number] Advance Directives For more information, please contact: [phone] * Full Code (Latest Code Status on File) Date Activated Date Inactivated Comments 12/26/2015 12:19 PM 12/26/2015 4:17 PM Care Teams Parliamentary Counsel Relationship Specialty Start Date End Date Ruiz Tesfaye NP [address] [place] [phone] PCP - General NURSE PRACTITIONER 12/20/19
[2024-12-25] MEDS: ondansetron 2 mg/ML SDV 2 mL 4 MG IVP (20:46)
[2024-12-25 20:50] LABS: ABG PCO2 37.9 mmHg (35-45); ABG PH Result 7.23 (7.35-7.45); Alveolar-Arterial Oxygen Gradi 57.0 mmHg (5-10); Arterial Blood Gas Hematocrit 38.6 % (37-47); Blood Gas Allen Test Pos; Blood Gas LPM 15.0 %; Blood Gas Operator Identificat gerca; Blood Gas Sample Site Radial, left; Blood Gas Sample Type Arterial; Carboxyhemoglobin 0.6 %THgb (0.4-20.1); Glucose Level-ABG 240.0 mg/dL (70-115); HCO3 ABG 16.0 mmol/L (22-26); Ionized Calcium Level - ABG 1.1 mmol/L (1.1-1.4); Methemoglobin 0.1 % (0.4-1.5); Oxygen Saturation ABG > 99.1; PO2 ABG 222.0 mmHg (80.0-100.0); PO2 FiO2 Ratio Arterial Blood 222; Potassium Level - ABG 3.3 mmol/L (3.5-5.0); Sodium Level - ABG 141.0 mmol/L (131-143)
[2024-12-25 20:56] LABS: Hematocrit 43.7 % (36-47); Hemoglobin 13.20 g/dL (11.27-16.99); Mean Corpuscular HGB Conc 30.2 g/dL (30-55); Mean Corpuscular Hemoglobin 28.6 pg (27-33); Mean Corpuscular Volume 94.8 fl (85-98); Nucleated Red Blood Cells % 0 %; Platelet Count 213 10^3/cmm (157-399); Red Blood Count 4.61 10^6/uL (3.85-5.65); White Blood Count 10.65 10^3/uL (3.29-11.43)
[2024-12-25] MEDS: norepinephrine 4 MG/250 ML BAG 7.5 MG IV (21:00)
[2024-12-25 21:16] LABS: Troponin T (5th) Once 80 ng/L (0-10)
[2024-12-25 21:18] LABS: Alanine Aminotransferase 54 U/L (0-33); Albumin Level 3.9 g/dL (3.5-5.2); Alkaline Phosphatase 169 U/L (35-105); Anion Gap 21.8 (5-19); Aspartate Amino Transferase 69 U/L (0-32); Blood Urea Nitrogen 16 mg/dL (8-23); Calcium 8.7 mg/dL (8.5-10.5); Carbon Dioxide 15 mmol/L (22-29); Chloride 107 mmol/L (98-107); Creatinine Clr Calc Pharmacy 40.3256; Globulin 1.9 g/dL (1.3-4.6); Glucose 184 mg/dL (65-115); Osmolality Calculated 296 mOsm/kg (285-295); Potassium 3.8 mmol/L (3.5-5.1); Sodium 140 mmol/L (136-145); Total Protein 5.8 g/dL (6.6-8.7)
[2024-12-26] VITALS (40 sets, daily range): BP systolic 89–146; BP diastolic 64–100; PULSE 0–118; RESP 2–43; TEMP 36.9; O2SAT 88–100
--- NOTE | 2024-12-26 02:12 | PC.NURSE ---
Rapid Response Rapid Response called at 2023 from [facility] 264 Per report, pt was up to restroom and became nauseated, lightheaded, and began sweating. Pt was laid in bed and manual B/P was 60/42 IVF bolus started and pt was placed in trendeleberg O2 saturation not registering on SPO2 probe - 10L NR placed on pt 2025 - B/P 70/58 HR 119 O2 98% 2027 - Physician in room Verbal order for levophed 2028 - B/P 94/64 HR 124 Verbal order for CBC, CMP & Trop 2039 - B/P 89/57 (MAP 67) Levophed started at 2 mcg ABG obtained 2044 - IV Zofran adminsitered 2046 - Pt transferred to ICU / SNOW PLOW OPERATOR @ bedside for report
--- NOTE | 2024-12-26 02:42 | PC.NURSE ---
PT ARRIVED TO THE MED SURG UNIT FROM THE ED AROUND 1944. PT IMMEDIATELY C/O THAT SHE WAS HOT AND NAUSEOUS. PT WALKED TO THE BATHROOM THEN BACK TO THE BED. THE PRIMARY NURSE CALLED THE MD HANDICAPPER HARNESS RACING TO GET SOMETHING FOR NAUSEA AND TO UPDATE HER ON PT CONDITION. THIS RN WALKED INTO THE ROOM TO DO THE ADMISSION ASSESSMENT AT 2001. UPON ENTERING PT WAS ROLLING BACK AND FORTH ON THE BED C/O BEING HOT AND NAUSEOUS AND WAS BEGGING THIS RN TO GIVE HER SOMETHING FOR NAUSEA. THIS RN INFORMED THE PT AND PT FAMILY THAT THE BIG DATA PLATFORM ARCHITECT WAS WORKING ON IT AND THAT THIS RN HAD TO COMPLETE THE ADMISSION ASSESSMENT. DURING THE ASSESSMENT THE PT WAS RESTLESS AND DID NOT WANT TO ANSWER ANYMORE QUESTIONS . DURING THE PHYSICAL ASSESSMENT THE PT STARTED TO CALM DOWN AND THIS RN WAS ABLE TO GET A SET OF VITALS. AT 2019 THE BP WAS 67/50 AND O2 WAS 77%. THIS RN PLACED THE PT IN TRENDELENBURG AND GRABBED A NONREBREATHER. THIS RN TOLD THE PRIMARY NURSE TO CALL THE MD HANDICAPPER HARNESS RACING TO GET MORE ORDERS AND TO COME SEE THE PT. THE MD HANDICAPPER HARNESS RACING TOLD THE PRIMARY NURSE TO PLACE PT IN TRENDELENBURG AND HANG A 1L FLUID BOLUS AND CALL BACK IN AN HOUR . THIS RN PLACED THE PT ON THE NONREBREATHER AT 10L O2. THE HIRED HELP OBTAINED A MANUAL BP OF 60/42 AND O2 WAS AT 85%. THIS RN CALLED A RAPID RESPONSE AT 2023.
[2024-12-26 04:52] LABS: Hematocrit 38.9 % (36-47); Hemoglobin 11.90 g/dL (11.27-16.99); Mean Corpuscular HGB Conc 30.6 g/dL (30-55); Mean Corpuscular Hemoglobin 28.3 pg (27-33); Mean Corpuscular Volume 92.4 fl (85-98); Nucleated Red Blood Cells % 0 %; Platelet Count 207 10^3/cmm (157-399); Red Blood Count 4.21 10^6/uL (3.85-5.65); White Blood Count 8.74 10^3/uL (3.29-11.43)
[2024-12-26 05:20] LABS: Anion Gap 17.1 (5-19); Blood Urea Nitrogen 20 mg/dL (8-23); Calcium 8.4 mg/dL (8.5-10.5); Carbon Dioxide 18 mmol/L (22-29); Chloride 110 mmol/L (98-107); Creatinine Clr Calc Pharmacy 43.9915; Glucose 118 mg/dL (65-115); Osmolality Calculated 296 mOsm/kg (285-295); Potassium 4.1 mmol/L (3.5-5.1); Sodium 141 mmol/L (136-145)
--- NOTE | 2024-12-26 08:18 | PM.MISC ---
Miscellaneous Note Purpose of Documentation: Rapid response for a severe hypotension in the 60s Note: Rapid response presentation This patient was admitted to the hospitalist service by Dr. Gipson upon patient arrival from the emergency room to the medical floor room # 264. The nurse called out immediately to me that patient had gotten up and gone to the bathroom and then threw herself onto the bed because this was very exhausted dizzy and passing out onto the bed never lost consciousness. Patient blood pressure was checked at that time it was 67/50. Immediately patient was placed on Trendelenburg and IV 1 L normal saline bolus we are initiated. Patient initially was responding to systolic blood pressure in the 90s and then dropped down to the 70s and 80s. Levophed was initiated patient was transferred to ICU #5 for continued care. Patient was called shivering and scared as she verbalized.. Eventually patient did remarkably well. Patient is in ICU status and removed from the Trendelenburg because patient is now perfusing and regaining blood pressure above 120s.
[2024-12-26] MEDS: ondansetron 2 mg/ML SDV 2 mL 4 MG IVP (08:28)
--- NOTE | 2024-12-26 09:23 | PC.NURSE ---
CODE BLUE; CPR started @0904. Pt then started to arise out of bed. Compressions stopped. 0906 CPR initiated. 0906 IO placed to LLE 0906 Epi IVP 0908 Pulse Check/ Asystole/ CPR 0908 IO placed to RLE 0909 Epi IVP/ Amp Bicarb IVP 0909 Levo gtt initiated. 0910 Pulse check/Asystole. Compressions paused at request of Dr Gipson based on DNR status found in chart. TOD called @[address] Gipson. Son at bedside with patient.
--- NOTE | 2024-12-26 09:25 | PM.DDS ---
Discharge Providers DDS Date of Admission: 12/25/24 16:14 Date Summary Completed: 12/26/24 Attending Provider at Admission: Tate Gipson MD Time of : 09:15 Attending Provider at Discharge: Tate Gipson MD Pronouncing Clinician: Tate Gipson Primary Care Provider: HASMUKH Hernandez Diagnoses Probable Cause of Sepsis Hospital Diagnoses 1. Acute cystitis: Details from hospital stay: Urine positive for infection sensitivities and cultures pending Qualifiers: Hematuria presence: without hematuria Qualified Code(s): N30.00 - Acute cystitis without hematuria 2. Sepsis: Details from hospital stay: Patient admitted and given fluid boluses as well as pressors in the ICU. Her blood pressure had been stable and she transferred to bathroom with assistance. On the way back she had syncope. Was placed in the chair. She had a pulse and asystole with clenched jaw consistent with seizure activity. She was treated with Versed and epinephrine. CPR was started and then it was identified that the patient was DNR from admission they before. CPR was discontinued. Patient's son Demian was updated and brought to bedside. Patient passed it on 9:15 AM 12/26/2024 Qualifiers: Sepsis acute organ dysfunction status: without acute organ dysfunction Sepsis type: sepsis due to unspecified organism Qualified Code(s): A41.9 - Sepsis, unspecified organism 3. Syncope: Details from hospital stay: Due to above Qualifiers: Syncope type: unspecified Qualified Code(s): R55 - Syncope and collapse Reason for Visit Reason for Visit weakness Summary Date and Time of Date of : 12/26/24 Time of : 09:15 Summary Summary: Patient was admitted to the medical floor after fluid boluses in the emergency department and treatment with Rocephin. Patient had additional hypotension and was transferred to the ICU where she was on Levophed briefly and has received additional fluid boluses. Patient was stable off Levophed for 12 hours and transferring to the bathroom she returned and had syncopal episode with asystole and seizure. She was given Versed and epinephrine in preparation for intubation but then was identified as DNR. She had bilateral interosseous access placed. CPR was stopped based on patient's wishes and she passed at 0915. Patient's son was present at bedside Additional Data Advance directives?: Yes Discharge Plan Discharge Patient Disposition: Condition: Stable Probable Cause of Probable cause of : Sepsis DS Attestations Time Spent in /Discharge Care*: greater than 30 min Quality - AMI: AMI present?: No Quality - Stroke: CVA present?: No Quality - VTE: VTE present?: No Coding Level of Care Code 00903 Diagnoses Acute cystitis N30.00 Hematuria presence: without hematuria Sepsis A41.9 Sepsis acute organ dysfunction status: without acute organ dysfunction Sepsis type: sepsis due to unspecified organism Syncope R55 Syncope type: unspecified Time Spent (min) 35
--- NOTE | 2024-12-26 09:26 | PC.NURSE ---
Addendum entered and electronically signed by Michelle Reyna RN 12/26/24 09:28: Medication waste witnessed by this nurse. Vials and syringes disposed of appropriately. Original Note: Succ and versed wasted, witnessed by Michelle Reyna RN, see SAMMY wasted in pyxis as well.
--- NOTE | 2024-12-26 09:33 | PC.NURSE ---
Upon shift change, levophed was still running in the mar, but it was actually off. Per shift production associate nurse, levhphed has been off since approximately 1130pm. Nurse attempted to update mar, but it does not allow to put in a custom stop time. NUrse paused the levophed on the mar.
--- NOTE | 2024-12-26 09:33 | PM.CCNAC ---
Critical Care Event Note The high probability of a clinically significant, sudden or life threatening deterioration of the patient's [] system(s) required my full and direct attention, intervention and personal management. The critical care time is as shown. This time is in addition to time spent performing any reported procedures but includes the following: [x] Data and vital sign review and interpretation [x] Patient assessment, examination and intervention [x] Documentation [x] Medication orders and management Critical Care Time Code activated: Yes Critical Care Time (min): 20 Additional information about critical care time: Called to [facility]. Dr. Groves and Dr. To also responded. 2 nurses present at bedside. Patient was started on CPR at 0906 intraosseous left tibial. Patient had asystole. Epinephrine IVP given 1 mg. Still asystole at 0908 right IO placed in right tibia. Patient given epinephrine and amp of bicarb. Levophed drip initiated at 0909. Versed and succinylcholine drawn for intubation. Dr. To ready to intubate however patient's CODE STATUS was DNR based on discussion that I had with her last evening. We elected to stop CPR and notified patient's son Demian. CODE BLUE stopped and patient had agonal breathing and pulseless electrical activity. She passed at 0 915 no breath sounds no heartbeat no pulse no pupil response Coding Level of Care Code Acute Code for Chg Fwd Time Spent (min) 20
--- NOTE | 2024-12-26 09:34 | PC.NURSE ---
Patient requested to get up to the bathroom at 0830. Patient's blood pressure was 133/100. After sitting on the kassandra eof the bed for many minutes, the patient then stood up with nurse assistance. WHile standing blood pressure was checked again, 118/89 while standing. Patient then went to the bathroom without incident and planned to get to a chair for breakfast. Patient returned to the chair and was about to sit down, but then lost consciousness. Nurse, along side of the ohysical therapist gently lowered patient into the recliner. After sitting her in the recliner, the patient regained conciousness a few seconds later and was reporting that she felt nauseous. Nurse reattached monitoring, heart rate in the mid 90's. SPO2: around 95%. Unable to obtain blood pressure through automatic cuff. Nurse attempted to obtain blood pressure manually, but was unable to obtain one. Pulse in feet is palpable but thready. Nurse restarted levophed, requested another nurse to try and obtain a manual blood pressure. NUrse called Dr gipson for further orders. Dr Gipson advised that he just put in order for additional fluids and to give them. SHortly after hanging up with Dr gipson, the patient again became unresponsive, per monitor heart rate was in the 30's. No pulse detected, agonal breathing. A code blue was called and crash cart was brought to the room. ACLS protocol started. Shortly after, code status was checked and she shows she is AND. Resuscitation efforts ceased, Rosc was not achieved, TIme of called at [address] gipson, verified by nurse Julia and Bank Compliance Officer. No pulse detectable. Family happened to be out in the waiting room at this time. Dr Gipson went to speak with the family.
--- NOTE | 2024-12-26 10:26 | PC.NURSE ---
MTS notified @[id number] by remote mortgage underwriter. Ref #[id number]
--- NOTE | 2024-12-26 13:22 | PC.NURSE ---
Patient picked up by [facility] staff.
== END 2024-12-26 13:23 | disposition expired ==
LOC: ER 16:57 → MEDSURG 19:59 → ICU 21:07
PROVIDERS: Internal Medicine; Admitting Provider Internal Medicine; Emergency Provider Emergency Medicine; PCP Nurse Practitioner; Visit Provider Internal Medicine
DX: A41.9 Sepsis, unspecified organism (principal); R55 Syncope and collapse; N30.00 Acute cystitis without hematuria; J44.9 Chronic obstructive pulmonary disease, unspecified; I10 Essential (primary) hypertension; Z86.711 Personal history of pulmonary embolism; Z66 Do not resuscitate; Z99.81 Dependence on supplemental oxygen
CPT/HCPCS: 36415; 36416; 36600; 70450; 71045; 72125; 80048; 80051; 80053; 81001; 82330; 82805; 82962; 83605; 83880; 84484; 85025; 87040; 87086; 87637; 93005; 94799; 96361; 96365; 96367; 96372; 96375; 97161; 99285; G0378; J0456; J0696; J1650; J2405; J2470; J7030; J7040; J7050; J9999